=== PATIENT | male | born 1960 | race Caucasian/White ===

== ENCOUNTER 2018-03-05 21:35 | Inpatient (IN) | payer MEDICARE, MEDICAID ==
[2018-03-05 21:36] VITALS: BMI 25.0
[2018-03-05] MEDS ORDERED: Albuterol-Ipratrop 3 mg / 0.5 (3 ml) UD INH STA ×5 (21:51→22:58)
[2018-03-05] MEDS ORDERED: MethylPREDNISolone 40 mg Vial IVP STA (21:51)
--- NOTE | 2018-03-05 21:56 | C.PDOC ---
History Of Present Illness 57 year old male with PMHx of asthma, SOB, COPD presents to the ED c/o worsening SOB that woke him up from sleep tonight. Patient also reports having mild cough. Patient denies fever, chills, nausea, vomit, headache, CP. Time Seen by Provider: 03/05/18 21:38 Chief Complaint (Nursing): Shortness Of Breath History Per: Patient History/Exam Limitations: no limitations Onset/Duration Of Symptoms: Hrs Current Symptoms Are (Timing): Still Present Initiating Event: Upper Respiratory Illness Quality: Tightness Exacerbating Factor(s): Laying Flat Current Respiratory Medications: See Home Med List Associated Symptoms: denies: Fever, Chills Recent travel outside of the [place]: No Additional History Per: Patient Past Medical History Reviewed: Historical Data, Nursing Documentation, Vital Signs Vital Signs: Last Vital Signs Temp 98.6 F 03/06/18 08:48 Pulse 80 03/06/18 11:47 Resp 18 03/06/18 08:48 BP 135/84 03/06/18 08:48 Pulse Ox 97 03/06/18 08:48 - Medical History PMH: Asthma, HTN Denies: Chronic Kidney Disease Surgical History: No Surg Hx - [facility] Procedures INFLUENZA VACCINATION (09/13/14) VACCINATION NEC (09/13/14) Family History: States: Unknown Family Hx - Social History Hx Tobacco Use: Yes Hx Alcohol Use: Yes Hx Substance Use: No - Immunization History Hx Tetanus Toxoid Vaccination: No Hx Influenza Vaccination: No Hx Pneumococcal Vaccination: No Review Of Systems Except As Marked, All Systems Reviewed And Found Negative. Respiratory: Positive for: Cough, Shortness of Breath, Wheezing Physical Exam - Physical Exam Appears: Non-toxic, No Acute Distress Skin: Normal Color, Warm, Dry Head: Atraumatic, Normacephalic Eye(s): bilateral: Normal Inspection Oral Mucosa: Moist Neck: Normal ROM, Supple Chest: Symmetrical Cardiovascular: Rhythm Regular Respiratory: Decreased Breath Sounds (symmetrically), No Rales, No Rhonchi, Wheezing Gastrointestinal/Abdominal: Soft, No Tenderness, No Guarding, No Rebound Extremity: Normal ROM, No Tenderness, No Swelling Neurological/Psych: Oriented x3, Normal Speech Gait: Steady ED Course And Treatment - Laboratory Results Result Diagrams: 03/05/18 22:24 03/05/18 22:24 ECG: Interpreted By Me, Viewed By Me ECG Rhythm: Sinus Tachycardia Rate From EC (BPM) O2 Sat by Pulse Oximetry: 87 Medical Decision Making Medical Decision Making: Impression: SOB Plan: * VBG * EKG * Labs * CXR * Nebulizer treatment 3 ml INH X3 * CXR * solumedrol 125 mg IVP * Magnesium Sulfate wheezing improving but persisitnet. accpeted by dr acosta. o2 sat on nc 95%. stable for tele. Disposition - Disposition Disposition: HOSPITALIZED Disposition Time: 11:00 Condition: FAIR - Clinical Impression Clinical Impression: Asthma exacerbation - Scribe Statement The provider has reviewed the documentation as recorded by the Scribe Mac Parker All medical record entries made by the Scribe were at my direction and personally dictated by me. I have reviewed the chart and agree that the record accurately reflects my personal performance of the history, physical exam, medical decision making, and the department course for this patient. I have also personally directed, reviewed, and agree with the discharge instructions and disposition. Decision To Admit - Pt Status Changed To: Hospital Disposition Of: Inpatient - Admit Certification Admit to Inpatient:: After my assessment, the patient will require hospitalization for at least two midnights. This is because of the severity of symptoms shown, intensity of services needed, and/or the medical risk in this patient being treated as an outpatient. - InPatient: Physician Admission Certification: I certify that this patient requires 2 or more midnights of care for the following reason:: needs iv steriods and o2 - . Bed Request Type: Telemetry Admitting Physician: Siddhartha Acosta Patient Diagnosis: Asthma exacerbation
[2018-03-05] MEDS ORDERED: Magnesium Sulfate 1 gm in D5W 1 GM/100 ML BAG IVPB ONE ×2 (22:16→22:35)
[2018-03-05] MEDS: Magnesium Sulfate 1 gm in D5W 1 GM/100 ML BAG IVPB SCH ×2 (22:23→22:40)
[2018-03-05] MEDS ORDERED: Albuterol-Ipratrop 3 mg / 0.5 (3 ml) UD ONE ×3 (22:25→23:58)
[2018-03-05 22:26] LABS: BASO % 0.6 % (0.0-2.0); EOS # 0.1 K/uL (0.0-0.7); EOS % 1.8 % (0.0-4.0); HEMOGLOBIN 14.3 g/dL (12.0-18.0); LYMPH # 3.1 K/uL (1.0-4.3); LYMPH % 38.6 % (20.0-40.0); MEAN CELL VOLUME 99.9 fL (80.0-94.0); MEAN CORPUSCULAR HEMOGLOBIN 34.3 pg (27.0-31.0); MEAN CORPUSCULAR HGB CONC 34.3 g/dL (33.0-37.0); MEAN PLATELET VOLUME 7.6 fL (7.2-11.7); MONO # 0.7 K/uL (0.0-0.8); MONO % 8.5 % (0.0-10.0); NEUT % 50.5 % (50.0-75.0); NRBC % 0.1 % (0.0-2.0); RBC 4.17 Mil/uL (4.40-5.90); RED CELL DISTRIBUTION WIDTH 12.7 % (11.5-14.5)
[2018-03-05 22:31] LABS: VENOUS BLOOD GAS PCO2 29 mmHg (40-60); VENOUS BLOOD GAS PO2 51 mm/Hg (30-55); VENOUS BLOOD PH 7.41 (7.32-7.43)
[2018-03-05] MEDS ORDERED: Sodium Chloride 0.9% 1,000 ML IV ONE (22:32)
[2018-03-05 22:40] LABS: ALB/GLOB RATIO 1.4 (1.0-2.1); ALBUMIN 4.2 g/dL (3.5-5.0); ALT/SGPT 313 U/L (21-72); AST/SGOT 173 U/L (17-59); BLOOD UREA NITROGEN 13 mg/dL (9-20); CALCIUM 9.6 mg/dl (8.6-10.4); GFR AFRICAN-AMERICAN > 60; GFR NON-AFRICAN AMERICAN > 60
[2018-03-05 22:41] LABS: PROTHROMBIN TIME 11.3 SECONDS (9.7-12.2)
[2018-03-05] MEDS ORDERED: Sodium Chloride 0.9% 1,000 ML ONE (23:12)
[2018-03-06] MEDS: guaiFENesin 600 mg ER Tab PO SCH ×3 (00:08→18:13)
--- NOTE | 2018-03-06 08:33 | RAD ---
PROCEDURE: CHEST RADIOGRAPH, 1 VIEW HISTORY: chest pain COMPARISON: Chest dated 12/08/2017 FINDINGS: LUNGS: Minor bibasilar atelectasis. . There is elliptical shaped 7.7 x 6.1 mm nodular density right upper lobe which overlies the medial aspect of the clavicle and right posterior 5th rib that could represent confluence shadow artifact or possibly a bone island/ osteoma however parenchymal nodule must be excluded and therefore followup nonemergent CT scan of the chest is recommended to exclude possibility of neoplasm. PLEURA: No pneumothorax or pleural fluid seen. CARDIOVASCULAR: Normal. OSSEOUS STRUCTURES: No significant abnormalities. VISUALIZED UPPER ABDOMEN: Normal. OTHER FINDINGS: None. IMPRESSION: Minor bibasilar atelectasis. . There is elliptical shaped 7.7 x 6.1 mm nodular density right upper lobe which overlies the medial aspect of the clavicle and right posterior 5th rib that could represent confluence shadow artifact or possibly a bone island/ osteoma however parenchymal nodule must be excluded and therefore followup nonemergent CT scan of the chest is recommended to exclude possibility of neoplasm. This report was placed in PA review folder for followup
[2018-03-06] MEDS: Albuterol-Ipratrop 3 mg / 0.5 (3 ml) UD INH SCH ×3 (08:45→20:10)
[2018-03-06] MEDS ORDERED: Budesonide 0.5 mg/2 ml Inhal Susp UD INH SCH ×2 (09:45→20:00)
[2018-03-06] MEDS: Enoxaparin 40 mg Syringe SC SCH (10:19)
[2018-03-06] MEDS: Fluticasone-Salmeterol 250-50mcg Diskus INH SCH ×2 (11:43→20:10)
--- NOTE | 2018-03-06 12:40 | CP.PCM.CON ---
History of Present Illness - History of Present Illness History of Present Illness: reason for consultation: shortness of breath 57-year-old male with COPD presented to emergency room with worsening shortness of breath not responding to nebulizer treatment. Also complaining off dry cough but denies chest pain, fevers chills, nausea vomiting Review of Systems - Review of Systems All systems: reviewed and no additional remarkable complaints except (shortness of breath and cough) Past Patient History - Infectious Disease Hx of Infectious Diseases: None - Past Medical History & Family History Past Medical History?: Yes - Past Social History Smoking Status: Former Smoker - CARDIAC Hx Hypertension: Yes - PULMONARY Hx Asthma: Yes - NEUROLOGICAL Hx Neurological Disorder: No - HEENT Hx HEENT Problems: No - RENAL Hx Chronic Kidney Disease: No - ENDOCRINE/METABOLIC Hx Endocrine Disorders: No - HEMATOLOGICAL/ONCOLOGICAL Hx Blood Disorders: No - INTEGUMENTARY Hx Dermatological Problems: No - MUSCULOSKELETAL/RHEUMATOLOGICAL Hx Falls: No - GASTROINTESTINAL Hx Gastrointestinal Disorders: No - GENITOURINARY/GYNECOLOGICAL Hx Genitourinary Disorders: No - PSYCHIATRIC Hx Substance Use: No - SURGICAL HISTORY Hx Surgeries: No Other/Comment: no other information given by patient - ANESTHESIA Hx Anesthesia: No Hx Anesthesia Reactions: No Hx Malignant Hyperthermia: No Has any member of the family had a problem w/ anesthesia?: No Meds Allergies/Adverse Reactions: Allergies Allergy/AdvReac Type Severity Reaction Status Date / Time No Known Allergies Allergy Verified 03/05/18 21:48 - Medications Medications: Current Medications Albuterol/Ipratropium (Duoneb 3 Mg/0.5 Mg (3 Ml) Ud) 3 ml INH RQ6 [facility] Last Admin: 03/06/18 08:45 Dose: Not Given Budesonide (Pulmicort Respules) 0.5 mg INH RQ12 [facility] Enoxaparin Sodium (Lovenox) 40 mg SC DAILY [facility] Last Admin: 03/06/18 10:19 Dose: 40 mg Guaifenesin (Mucinex La) 600 mg PO BID [facility] Last Admin: 03/06/18 10:15 Dose: 600 mg Methylprednisolone (Solu-Medrol) 60 mg IV Q12 [facility] Last Admin: 03/06/18 10:15 Dose: 60 mg Fluticasone/Salmeterol (Advair Diskus 250/50) 1 puff INH RQ12 [facility] Last Admin: 07/08/18 11:43 Dose: 1 puff Physical Exam - Head Exam Head Exam: ATRAUMATIC, NORMOCEPHALIC - Eye Exam Eye Exam: Normal appearance - ENT Exam ENT Exam: Mucous Membranes Moist - Neck Exam Neck exam: Positive for: Normal Inspection - Respiratory Exam Respiratory Exam: Rhonchi, Wheezes - Cardiovascular Exam Cardiovascular Exam: REGULAR RHYTHM - GI/Abdominal Exam GI & Abdominal Exam: Normal Bowel Sounds, Soft Results - Vital Signs Recent Vital Signs: Last Vital Signs Temp 98.6 F 03/06/18 08:48 Pulse 80 03/06/18 11:47 Resp 18 03/06/18 08:48 BP 135/84 03/06/18 08:48 Pulse Ox 97 03/06/18 08:48 - Labs Result Diagrams: 03/05/18 22:24 03/05/18 22:24 Labs: Laboratory Results - last 24 hr 03/05/18 03/05/18 03/05/18 22:23 22:24 22:24 WBC 8.0 D RBC 4.17 L Hgb 14.3 Hct 41.7 MCV 99.9 H MCH 34.3 H MCHC 34.3 RDW 12.7 Plt Count 289 MPV 7.6 Neut % (Auto) 50.5 Lymph % (Auto) 38.6 Terry % (Auto) 8.5 Eos % (Auto) 1.8 Baso % (Auto) 0.6 Neut # (Auto) 4.0 Lymph # (Auto) 3.1 Terry # (Auto) 0.7 Eos # (Auto) 0.1 Baso # (Auto) 0.0 PT 11.3 INR 1.0 APTT 30 pO2 51 VBG pH 7.41 VBG pCO2 29 L VBG HCO3 20.7 VBG Total CO2 19.3 L VBG O2 Sat (Calc) 90.6 H VBG Base Excess -5.0 L VBG Potassium 2.4 L* Sodium 129.0 L Chloride 99.0 Glucose 479 H* Lactate 2.0 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 Crit Value Called By Tiki gil rt Crit Value Read Back Y Blood Gas Notified Time 8557 Potassium Carbon Dioxide Anion Gap BUN Creatinine Est GFR ( Amer) Est GFR (Non-Af Amer) Random Glucose Calcium Magnesium Total Bilirubin AST ALT Alkaline Phosphatase Troponin I Total Protein Albumin Globulin Albumin/Globulin Ratio Venous Blood Potassium 2.4 L* Hep Bs Antigen 03/05/18 03/06/18 22:24 00:21 WBC RBC Hgb Hct MCV MCH MCHC RDW Plt Count MPV Neut % (Auto) Lymph % (Auto) Terry % (Auto) Eos % (Auto) Baso % (Auto) Neut # (Auto) Lymph # (Auto) Terry # (Auto) Eos # (Auto) Baso # (Auto) PT INR APTT pO2 VBG pH VBG pCO2 VBG HCO3 VBG Total CO2 VBG O2 Sat (Calc) VBG Base Excess VBG Potassium Sodium 141 Chloride 102 Glucose Lactate Crit Value Called To Crit Value Called By Crit Value Read Back Blood Gas Notified Time Potassium 3.8 Carbon Dioxide 24 Anion Gap 19 BUN 13 Creatinine 0.8 Est GFR ( Amer) > 60 Est GFR (Non-Af Amer) > 60 Random Glucose 154 H Calcium 9.6 Magnesium 1.8 Total Bilirubin 0.7 AST 173 H ALT 313 H D Alkaline Phosphatase 87 Troponin I < 0.0120 Total Protein 7.3 Albumin 4.2 Globulin 3.1 Albumin/Globulin Ratio 1.4 Venous Blood Potassium Hep Bs Antigen Negative Assessment & Plan (1) COPD exacerbation Status: Acute Comment: continue nebulizer treatment. IV steroids. Start azithromycin. Continue present treatment. Pulmonary function test
[2018-03-06] MEDS: Azithromycin 500mg/250ML NS 500 MG/250 ML BAG IVPB SCH (14:51)
--- NOTE | 2018-03-06 23:40 | CP.PCM.HP ---
Past Patient History - Infectious Disease Hx of Infectious Diseases: None - Past Medical History & Family History Past Medical History?: Yes - Past Social History Smoking Status: Former Smoker - CARDIAC Hx Hypertension: Yes - PULMONARY Hx Asthma: Yes - NEUROLOGICAL Hx Neurological Disorder: No - HEENT Hx HEENT Problems: No - RENAL Hx Chronic Kidney Disease: No - ENDOCRINE/METABOLIC Hx Endocrine Disorders: No - HEMATOLOGICAL/ONCOLOGICAL Hx Blood Disorders: No - INTEGUMENTARY Hx Dermatological Problems: No - MUSCULOSKELETAL/RHEUMATOLOGICAL Hx Falls: No - GASTROINTESTINAL Hx Gastrointestinal Disorders: No - GENITOURINARY/GYNECOLOGICAL Hx Genitourinary Disorders: No - PSYCHIATRIC Hx Substance Use: No - SURGICAL HISTORY Hx Surgeries: No Other/Comment: no other information given by patient - ANESTHESIA Hx Anesthesia: No Hx Anesthesia Reactions: No Hx Malignant Hyperthermia: No Has any member of the family had a problem w/ anesthesia?: No Meds Allergies/Adverse Reactions: Allergies Allergy/AdvReac Type Severity Reaction Status Date / Time No Known Allergies Allergy Verified 03/05/18 21:48 Results - Vital Signs Recent Vital Signs: Last Vital Signs Temp 98.2 F 03/06/18 15:32 Pulse 107 H 03/06/18 16:00 Resp 20 03/06/18 15:32 BP 143/85 03/06/18 15:32 Pulse Ox 97 03/06/18 15:32 - Labs Result Diagrams: 03/05/18 22:24 03/05/18 22:24 Labs: Laboratory Results - last 24 hr 03/06/18 00:21 Hep Bs Antigen Negative
[2018-03-07] MEDS: Albuterol-Ipratrop 3 mg / 0.5 (3 ml) UD INH SCH ×5 (02:28→19:25)
[2018-03-07] MEDS: Fluticasone-Salmeterol 250-50mcg Diskus INH SCH ×2 (07:42→19:24)
--- NOTE | 2018-03-07 10:11 | HP ---
CHIEF COMPLAINT: Shortness of breath, cough. HISTORY OF PRESENT ILLNESS: This is a 57-year-old male with history of bronchial asthma. Otherwise, he is stable. He is healthy. He is compliant with his diet medications. He is not on any home oxygen. The last admission was three years ago and he came back because of cough, congestion, shortness of breath, which started acutely on the day of admission. Along with that, he was wheezing, he was dyspneic at rest. He has chest pain. He has chest pain on congestion. He felt congested on the chest. He felt nasal congestion. He denies any fever, chills, rigors. He does not have any sputum production. No fever, no chills, generalized weakness, tiredness. He denies any history of abdominal pain, nausea, vomiting, or diarrhea. He denies any history of polyuria, polydipsia, or polyphagia. Denies any history of hematuria or pyuria. There is no history of sneezing, itchy eyes, or itchy nose. ALLERGIES: NO KNOWN ALLERGIES. CURRENT MEDICATIONS: At home, the patient is on Proventil, DuoNeb, and Pulmicort Flexhaler SOCIAL HISTORY: Ex-smoker, non-EtOH user. PHYSICAL EXAMINATION: GENERAL: An elderly middle-aged male, right now he is in minimal respiratory distress. SKIN: Flush. No purpura, no petechiae. No bruises. HEENT: Atraumatic, normocephalic. Negative pallor. Negative jaundice. Extraocular movements are intact. NECK: Supple. He is not using accessory muscles. LUNGS: Bilaterally decreased air entry. Positive rhonchi. CVS: S1 and S2 regular. No heaves noted. ABDOMEN: Soft, nontender. Bowel sounds are positive. RECTAL: No masses, no bleeding. EXTREMITIES: No clubbing, cyanosis, or edema. WARP TENSION TESTER: Awake, alert, and oriented x3. Cranial nerves II through XII are normal. Power 5/5 x4. Plantars are downgoing. ASSESSMENT: Acute exacerbation of chronic obstructive pulmonary disease/asthma. PLAN: Admit. Detailed orders written. Seen and examined. Siddhartha Acosta MD
[2018-03-07] MEDS: guaiFENesin 600 mg ER Tab PO SCH ×2 (10:53→18:08)
[2018-03-07] MEDS: Enoxaparin 40 mg Syringe SC SCH (10:56)
[2018-03-07] MEDS: Azithromycin 500mg/250ML NS 500 MG/250 ML BAG IVPB SCH (11:59)
--- NOTE | 2018-03-07 17:46 | CP.PCM.PN ---
Subjective - Date & Time of Evaluation Date of Evaluation: 03/07/18 Time of Evaluation: 11:00 - Subjective Subjective: CC: COPD Exarcebation HPI: Patient examined this morning at the bedside. Patient is not in acute distress. Patient has improved breathing. Patient is afebrile. Patient can be discharged today. Patient to follow up in outpatient office. ROS: Constitutional: Patient denies fever and chills. Cardiovascular: Patient denies chest pain, palpitations. Respiratory: Patient denies shortness of breath or cough. Gastrointestinal: Patient denies nausea, vomiting, diarrhea. Physical Exam HEENT: Atraumatic, normocephalic, mucuous membranes moist Repiratory: Clear to auscultation bilaterally. No wheezing or rhonchi. No use of accessory muscles. Cardiovascular: +S1/ S2, regular rate and rhythm GI: Normal bowel sounds in all 4 quadrants, no tenderness, no distention Extremities: No LE edema Neurological: Alert, awake, oriented X3 Assessment: 57 year old male patient with history of bronchial asthma; patient's complaint consistent with COPD exacerbation. 1. COPD Exacerbation Status: Acute - Continue nebulizer treatment - Continue steroids - Follow- up outpatient visit in office Objective - Vital Signs/Intake and Output Vital Signs (last 24 hours): Temp Pulse Resp BP Pulse Ox 98.3 F 77 18 126/66 99 03/07/18 08:00 03/07/18 08:00 03/07/18 08:00 03/07/18 08:00 03/07/18 08:00 Intake and Output: 03/07/18 03/07/18 06:59 18:59 Intake Total 400 Balance 400 - Medications Medications: Current Medications Albuterol/Ipratropium (Duoneb 3 Mg/0.5 Mg (3 Ml) Ud) 3 ml INH RQ6 [facility] Last Admin: 03/07/18 07:42 Dose: 3 ml Budesonide (Pulmicort Respules) 0.5 mg INH RQ12 [facility] Enoxaparin Sodium (Lovenox) 40 mg SC DAILY [facility] Last Admin: 03/07/18 10:56 Dose: 40 mg Guaifenesin (Mucinex La) 600 mg PO BID [facility] Last Admin: 03/07/18 10:53 Dose: 600 mg Azithromycin (Zithromax 500mg In Ns Addvantage) 500 mg in 250 mls @ 167 mls/hr IVPB Q24H [facility] PRN Reason: Protocol Last Admin: 03/07/18 11:59 Dose: 167 mls/hr Methylprednisolone (Solu-Medrol) 60 mg IV Q12 [facility] Last Admin: 03/07/18 10:53 Dose: 60 mg Fluticasone/Salmeterol (Advair Diskus 250/50) 1 puff INH RQ12 [facility] Last Admin: 03/07/18 07:42 Dose: 1 puff - Labs Labs: 03/05/18 22:24 03/05/18 22:24 PT 11.3 SECONDS (9.7-12.2) 03/05/18 22:24 INR 1.0 03/05/18 22:24 APTT 30 SECONDS (21-34) 03/05/18 22:24 Assessment and Plan (1) COPD exacerbation Status: Acute
[2018-03-07 20:38] VITALS: RESP 20
--- NOTE | 2018-03-07 23:56 | CP.PCM.PN ---
Subjective - Date & Time of Evaluation Date of Evaluation: 03/07/18 Time of Evaluation: 21:00 - Subjective Subjective: Pt seen and examined at bedside, less short of breath, less cough, less wheezing Objective - Vital Signs/Intake and Output Vital Signs (last 24 hours): Temp Pulse Resp BP Pulse Ox 98.5 F 91 H 20 140/90 96 03/07/18 15:37 03/07/18 15:37 03/07/18 15:37 03/07/18 15:37 03/07/18 15:37 - Medications Medications: Current Medications Albuterol/Ipratropium (Duoneb 3 Mg/0.5 Mg (3 Ml) Ud) 3 ml INH RQ6 [facility] Last Admin: 03/07/18 19:25 Dose: 3 ml Budesonide (Pulmicort Respules) 0.5 mg INH RQ12 [facility] Enoxaparin Sodium (Lovenox) 40 mg SC DAILY [facility] Last Admin: 03/07/18 10:56 Dose: 40 mg Guaifenesin (Mucinex La) 600 mg PO BID [facility] Last Admin: 03/07/18 18:08 Dose: 600 mg Azithromycin (Zithromax 500mg In Ns Addvantage) 500 mg in 250 mls @ 167 mls/hr IVPB Q24H [facility] PRN Reason: Protocol Last Admin: 03/07/18 11:59 Dose: 167 mls/hr Methylprednisolone (Solu-Medrol) 60 mg IV Q12 [facility] Last Admin: 03/07/18 21:48 Dose: 60 mg Fluticasone/Salmeterol (Advair Diskus 250/50) 1 puff INH RQ12 [facility] Last Admin: 03/07/18 19:24 Dose: 1 puff - Labs Labs: 03/05/18 22:24 03/05/18 22:24 PT 11.3 SECONDS (9.7-12.2) 03/05/18 22:24 INR 1.0 03/05/18 22:24 APTT 30 SECONDS (21-34) 03/05/18 22:24 - Constitutional Appears: No Acute Distress - Head Exam Head Exam: ATRAUMATIC, NORMAL INSPECTION, NORMOCEPHALIC - Eye Exam Eye Exam: EOMI, Normal appearance, PERRL Pupil Exam: NORMAL ACCOMODATION, PERRL - Respiratory Exam Respiratory Exam: Decreased Breath Sounds, Rhonchi, Wheezes - Cardiovascular Exam Cardiovascular Exam: REGULAR RHYTHM, +S1, +S2. absent: Murmur - GI/Abdominal Exam GI & Abdominal Exam: Soft, Normal Bowel Sounds. absent: Tenderness - Rectal Exam Rectal Exam: Deferred Assessment and Plan (1) COPD exacerbation Assessment & Plan: continue current medications taper sterioid discharge pt in am Status: Acute (2) Dyspnea Status: Acute
[2018-03-08] MEDS: Albuterol-Ipratrop 3 mg / 0.5 (3 ml) UD INH SCH ×2 (01:06→07:19)
[2018-03-08 07:56] VITALS: TEMP 98.1; O2SAT 96
[2018-03-08] MEDS ORDERED: MethylPREDNISolone 40 mg Vial IV SCH (09:07)
[2018-03-08] MEDS: Fluticasone-Salmeterol 250-50mcg Diskus INH SCH (10:07)
[2018-03-08 10:43] VITALS: BP 156/93; PULSE 97
[2018-03-08] MEDS: guaiFENesin 600 mg ER Tab PO SCH (10:43)
[2018-03-08] MEDS: Enoxaparin 40 mg Syringe SC SCH (10:44)
[2018-03-08 12:31] LABS: HAV AB (IGM) Nonreactive (Nonreactive)
--- NOTE | 2018-03-08 16:43 | CP.PCM.PN ---
Subjective - Date & Time of Evaluation Date of Evaluation: 03/08/18 Time of Evaluation: 09:00 - Subjective Subjective: COPD Exarcebation HPI: Patient examined this morning at the bedside. Patient is not in acute distress. Patient has improved breathing. Patient is afebrile. Patient to be discharged today. ROS: Constitutional: Patient denies fever and chills. Cardiovascular: Patient denies chest pain, palpitations. Respiratory: Patient denies shortness of breath or cough. Gastrointestinal: Patient denies nausea, vomiting, diarrhea. Neurological: Alert, awake, oriented X3 Physical Exam HEENT: Atraumatic, normocephalic, mucuous membranes moist Repiratory: Clear to auscultation bilaterally. No wheezing or rhonchi. No use of accessory muscles. Cardiovascular: +S1/ S2, regular rate and rhythm GI: Normal bowel sounds in all 4 quadrants, no tenderness, no distention Extremities: No LE edema Neurological: Alert, awake, oriented X3 Assessment: 57 year old male patient with history of bronchial asthma; patient's complaint consistent with COPD exacerbation. 1. COPD Exacerbation Status: Acute - Continue nebulizer treatment - Continue steroids - Follow- up outpatient visit in office Objective - Vital Signs/Intake and Output Vital Signs (last 24 hours): Temp Pulse Resp BP Pulse Ox 98.1 F 97 H 20 156/93 H 96 03/08/18 07:00 03/08/18 10:43 03/08/18 07:00 03/08/18 10:43 03/08/18 07:00 - Labs Labs: 03/05/18 22:24 03/05/18 22:24 PT 11.3 SECONDS (9.7-12.2) 03/05/18 22:24 INR 1.0 03/05/18 22:24 APTT 30 SECONDS (21-34) 03/05/18 22:24 Assessment and Plan (1) COPD exacerbation Status: Acute
--- NOTE | 2018-03-08 17:34 | CP.PCM.PN ---
Objective - Vital Signs/Intake and Output Vital Signs (last 24 hours): Temp Pulse Resp BP Pulse Ox 98.1 F 97 H 20 156/93 H 96 03/08/18 07:00 03/08/18 10:43 03/08/18 07:00 03/08/18 10:43 03/08/18 07:00 - Labs Labs: 03/05/18 22:24 03/05/18 22:24 PT 11.3 SECONDS (9.7-12.2) 03/05/18 22:24 INR 1.0 03/05/18 22:24 APTT 30 SECONDS (21-34) 03/05/18 22:24 Assessment and Plan - Assessment and Plan (Free Text) Assessment: Patient admitted with COPD, asthma exacerbation, seen and examined. Alert and orientedx3, no wheezing or distress noted. Discussed with DR Acosta, plan to discharge home on medro; dose pack and mucinex. Advised to follow up in the office in 1 week.
--- NOTE | 2018-03-08 23:43 | CP.PCM.DIS ---
Provider - Provider Date of Admission: 03/05/18 22:58 Attending physician: Siddhartha Acosta MD Time Spent in preparation of Discharge (in minutes): 35 Diagnosis - Discharge Diagnosis (1) COPD exacerbation Status: Acute (2) Dyspnea Status: Acute Hospital Course - Lab Results Lab Results: Most Recent Lab Values WBC 8.0 K/uL (4.8-10.8) D 03/05/18 22:24 RBC 4.17 Mil/uL (4.40-5.90) L 03/05/18 22:24 Hgb 14.3 g/dL (12.0-18.0) 03/05/18 22:24 Hct 41.7 % (35.0-51.0) 03/05/18 22:24 MCV 99.9 fL (80.0-94.0) H 03/05/18 22:24 MCH 34.3 pg (27.0-31.0) H 03/05/18 22:24 MCHC 34.3 g/dL (33.0-37.0) 03/05/18 22:24 RDW 12.7 % (11.5-14.5) 03/05/18 22:24 Plt Count 289 K/uL (130-400) 03/05/18 22:24 MPV 7.6 fL (7.2-11.7) 03/05/18 22:24 Neut % (Auto) 50.5 % (50.0-75.0) 03/05/18 22:24 Lymph % (Auto) 38.6 % (20.0-40.0) 03/05/18 22:24 [place]ke % (Auto) 8.5 % (0.0-10.0) 03/05/18 22:24 Eos % (Auto) 1.8 % (0.0-4.0) 03/05/18 22:24 Baso % (Auto) 0.6 % (0.0-2.0) 03/05/18 22:24 Neut # (Auto) 4.0 K/uL (1.8-7.0) 03/05/18 22:24 Lymph # (Auto) 3.1 K/uL (1.0-4.3) 03/05/18 22:24 Parke # (Auto) 0.7 K/uL (0.0-0.8) 03/05/18 22:24 Eos # (Auto) 0.1 K/uL (0.0-0.7) 03/05/18 22:24 Baso # (Auto) 0.0 K/uL (0.0-0.2) 03/05/18 22:24 PT 11.3 SECONDS (9.7-12.2) 03/05/18 22:24 INR 1.0 03/05/18 22:24 APTT 30 SECONDS (21-34) 03/05/18 22:24 pO2 51 mm/Hg (30-55) 03/05/18 22:23 VBG pH 7.41 (7.32-7.43) 03/05/18 22:23 VBG pCO2 29 mmHg (40-60) L 03/05/18 22:23 VBG HCO3 20.7 mmol/L 03/05/18 22:23 VBG Total CO2 19.3 mmol/L (22-28) L 03/05/18 22:23 VBG O2 Sat (Calc) 90.6 % (40-65) H 03/05/18 22:23 VBG Base Excess -5.0 mmol/L (0.0-2.0) L 03/05/18 22:23 VBG Potassium 2.4 mmol/L (3.6-5.2) L* 03/05/18 22:23 Sodium 129.0 mmol/l (132-148) L 03/05/18 22:23 Chloride 99.0 mmol/L (98-107) 03/05/18 22:23 Glucose 479 mg/dl (75-110) H* 03/05/18 22:23 Lactate 2.0 mmol/L (0.7-2.1) 03/05/18 22:23 Crit Value Called To Kavya bermeo rn 03/05/18 22:23 Crit Value Called By Tiki gil rt 03/05/18 22:23 Crit Value Read Back Y 03/05/18 22:23 Blood Gas Notified Time 6583 03/05/18 22:23 Sodium 141 mmol/L (132-148) 03/05/18 22:24 Potassium 3.8 mmol/L (3.6-5.2) 03/05/18 22:24 Chloride 102 mmol/L (98-107) 03/05/18 22:24 Carbon Dioxide 24 mmol/L (22-30) 03/05/18 22:24 Anion Gap 19 (10-20) 03/05/18 22:24 BUN 13 mg/dL (9-20) 03/05/18 22:24 Creatinine 0.8 mg/dL (0.8-1.5) 03/05/18 22:24 Est GFR ( Amer) > 60 03/05/18 22:24 Est GFR (Non-Af Amer) > 60 03/05/18 22:24 Random Glucose 154 mg/dL (75-110) H 03/05/18 22:24 Calcium 9.6 mg/dl (8.6-10.4) 03/05/18 22:24 Magnesium 1.8 mg/dL (1.6-2.3) 03/05/18 22:24 Total Bilirubin 0.7 mg/dL (0.2-1.3) 03/05/18 22:24 AST 173 U/L (17-59) H 03/05/18 22:24 ALT 313 U/L (21-72) H D 03/05/18 22:24 Alkaline Phosphatase 87 U/L (38-126) 03/05/18 22:24 Troponin I < 0.0120 ng/mL (0.00-0.120) 03/05/18 22:24 Total Protein 7.3 g/dL (6.3-8.3) 03/05/18 22:24 Albumin 4.2 g/dL (3.5-5.0) 03/05/18 22:24 Globulin 3.1 gm/dL (2.2-3.9) 03/05/18 22:24 Albumin/Globulin Ratio 1.4 (1.0-2.1) 03/05/18 22:24 Venous Blood Potassium 2.4 mmol/L (3.6-5.2) L* 03/05/18 22:23 Hepatitis A IgM Ab Nonreactive (Nonreactive) 03/06/18 00:21 Hepatitis A Ab Total Reactive (Nonreactive) H 03/06/18 00:21 Hep Bs Antigen Negative (NEGATIVE) 03/06/18 00:21 Hepatitis C Antibody Reactive (Non Reactive) H 07/08/18 00:21 Hep C Ab Signal/Cutoff 19.7 Ratio (<1.0) H 03/06/ 00:21 - Hospital Course Hospital Course: Pt was doscharged today, less short of breath, less cough, less wheezing continue home nebulizer, inhaler Discharge Exam - Head Exam Head Exam: ATRAUMATIC, NORMAL INSPECTION, NORMOCEPHALIC - Eye Exam Eye Exam: EOMI, Normal appearance, PERRL Pupil Exam: NORMAL ACCOMODATION, PERRL - ENT Exam ENT Exam: Mucous Membranes Moist - Respiratory Exam Respiratory Exam: Decreased Breath Sounds, Rales, Rhonchi - Cardiovascular Exam Cardiovascular Exam: REGULAR RHYTHM, +S1, +S2 - GI/Abdominal Exam GI & Abdominal Exam: Normal Bowel Sounds - Rectal Exam Rectal Exam: Deferred Discharge Plan - Discharge Medications Prescriptions: Methylprednisolone [Medrol Dose Pack (21 tabs)] 4 mg PO DAILY #21 mg guaiFENesin [Mucinex LA] 600 mg PO BID #14 tab - Follow Up Plan Condition: FAIR Disposition: HOME/ ROUTINE Instructions: Asthma, Adult (DC), Exacerbation of COPD (DC), Guaifenesin, Methylprednisolone Additional Instructions: follow up with PMD in 1 week medrol dose pack as directed mucinex , duoneb to continue at home Referrals: Siddhartha Acosta MD [Staff Provider] -
== END 2018-03-08 11:44 | disposition home or self-care (01) | DRG 191 ==
LOC: C.ER 21:35 → C.9E 22:58 → C.6T 03-06 00:25
PROVIDERS: ADMIT Internal Medicine; ATTEND Internal Medicine
DX: J44.1 Chronic obstructive pulmonary disease with (acute) exacerbation (principal); J45.901 Unspecified asthma with (acute) exacerbation; R06.00 Dyspnea, unspecified; I10 Essential (primary) hypertension; Z87.891 Personal history of nicotine dependence

== ENCOUNTER 2018-04-11 23:02 | Inpatient (IN) | payer MEDICARE, MEDICAID ==
[2018-04-11 23:02] VITALS: BMI 25.0
[2018-04-11] MEDS ORDERED: Albuterol-Ipratrop 3 mg / 0.5 (3 ml) UD ONE ×2 (23:07→23:25)
[2018-04-11] MEDS ORDERED: Albuterol-Ipratrop 3 mg / 0.5 (3 ml) UD INH STA ×2 (23:27→23:28)
[2018-04-11] MEDS ORDERED: MethylPREDNISolone 40 mg Vial IVP STA (23:27)
[2018-04-11] MEDS ORDERED: Sodium Chloride 0.9% 1,000 ML IV ONE (23:50)
--- NOTE | 2018-04-11 23:50 | C.PDOC ---
History Of Present Illness Patient presents with worsening shortness of breath over the last few hours. Used inhaler at home, but still feels tight. Speaking in 2-3 word sentences. No f/c/n/d. Quit smoking 3 years ago Time Seen by Provider: 04/11/18 23:49 Chief Complaint (Nursing): Shortness Of Breath History Per: Patient History/Exam Limitations: no limitations Onset/Duration Of Symptoms: Hrs Current Symptoms Are (Timing): Still Present Initiating Event: Other Exacerbating Factor(s): Coughing Current Respiratory Medications: See Home Med List Severity: Severe Pain Scale Rating Of: 7 Associated Symptoms: denies: Fever, Chills, Sweating Reports Recently: Seen In ED, Treated By A Physician Recent travel outside of the [place]: No Additional History Per: Patient Past Medical History Reviewed: Historical Data, Nursing Documentation, Vital Signs Vital Signs: Last Vital Signs Temp 98.2 F 04/11/18 23:05 Pulse 110 H 04/12/18 00:41 Resp 14 04/12/18 00:41 BP 137/80 04/12/18 00:41 Pulse Ox 92 L 04/12/18 01:20 - Medical History PMH: Asthma, COPD, HTN Denies: Chronic Kidney Disease - [facility] Procedures INFLUENZA VACCINATION (09/13/14) VACCINATION NEC (09/13/14) Family History: States: No Known Family Hx - Social History Hx Tobacco Use: Yes Hx Alcohol Use: Yes Hx Substance Use: No - Immunization History Hx Tetanus Toxoid Vaccination: No Hx Influenza Vaccination: No Hx Pneumococcal Vaccination: No Review Of Systems Constitutional: Negative for: Fever, Chills Eyes: Negative for: Vision Change ENT: Negative for: Throat Pain Cardiovascular: Negative for: Chest Pain Respiratory: Positive for: Cough, Shortness of Breath, Wheezing Gastrointestinal: Negative for: Nausea, Vomiting, Abdominal Pain Genitourinary: Negative for: Dysuria Musculoskeletal: Negative for: Back Pain Skin: Negative for: Rash Neurological: Negative for: Weakness Psych: Negative for: Anxiety Physical Exam - Physical Exam Appears: In Acute Distress Skin: Warm, Dry Head: Normacephalic Eye(s): bilateral: Normal Inspection Oral Mucosa: Moist Throat: No Erythema Neck: Supple Chest: Symmetrical Cardiovascular: Rhythm Regular Respiratory: Decreased Breath Sounds, Accessory Muscle Use, No Rales, No Rhonchi , Wheezing Gastrointestinal/Abdominal: Soft, No Tenderness, No Distention Back: Normal Inspection Extremity: Normal ROM Extremity: Bilateral: Atraumatic Neurological/Psych: Oriented x3 Gait: Steady ED Course And Treatment O2 Sat by Pulse Oximetry: 92 Pulse Ox Interpretation: Abnormal - Radiology CXR: Interpreted by Me, Viewed By Me CXR Interpretation: No: Infiltrates, Fracture, Pnemothorax Critical Care Time - Critical Care Note Total Time (in mins): 30 Documented critical care: time excludes all time spent performing seperately billable procedures. Disposition Discussed With Dr.: Bandar Norman Comment: accepted the pt onhis service and took over the care at 1:19 AM Doctor Will See Patient In The: Hospital Counseled Patient/Family Regarding: Studies Performed, Diagnosis - Disposition Disposition: HOSPITALIZED Disposition Time: 23:50 Condition: GUARDED Forms: [facility] (Colombian) - POA Present On Arrival: None - Clinical Impression Clinical Impression: Acute asthma exacerbation Decision To Admit - Pt Status Changed To: Hospital Disposition Of: Inpatient - Admit Certification Admit to Inpatient:: After my assessment, the patient will require hospitalization for at least two midnights. This is because of the severity of symptoms shown, intensity of services needed, and/or the medical risk in this patient being treated as an outpatient. - InPatient: Physician Admission Certification: I certify that this patient requires 2 or more midnights of care for the following reason:: After my assessment, the patient will require hospitalization for at least two midnights. This is because of the severity of symptoms shown, intensity of services needed, and/or the medical risk in this patient being treated as an outpatient. - . Bed Request Type: Regular Admitting Physician: Bandar Norman Patient Diagnosis: Acute asthma exacerbation
[2018-04-11] MEDS ORDERED: Magnesium Sulfate 1 gm in D5W 1 GM/100 ML BAG IVPB ONE (23:55)
[2018-04-12] MEDS ORDERED: Albuterol-Ipratrop 3 mg / 0.5 (3 ml) UD ONE
[2018-04-12] MEDS ORDERED: Albuterol-Ipratrop 3 mg / 0.5 (3 ml) UD INH STA (00:10)
[2018-04-12] MEDS ORDERED: Magnesium Sulfate 1 gm in D5W 1 GM/100 ML BAG IVPB ONE (01:20)
[2018-04-12 01:25] LABS: BASO # 0.1 K/uL (0.0-0.2); BASO % 0.9 % (0.0-2.0); EOS # 0.1 K/uL (0.0-0.7); EOS % 0.8 % (0.0-4.0); HEMOGLOBIN 13.4 g/dL (12.0-18.0); LYMPH # 2.9 K/uL (1.0-4.3); MEAN CORPUSCULAR HEMOGLOBIN 35.4 pg (27.0-31.0); MEAN CORPUSCULAR HGB CONC 35.1 g/dL (33.0-37.0); MONO # 0.6 K/uL (0.0-0.8); MONO % 5.2 % (0.0-10.0); NEUT # 7.1 K/uL (1.8-7.0); NEUT % 66.1 % (50.0-75.0); RBC 3.78 Mil/uL (4.40-5.90); RED CELL DISTRIBUTION WIDTH 12.8 % (11.5-14.5); WHITE BLOOD COUNT 10.7 K/uL (4.8-10.8)
[2018-04-12 01:38] LABS: ALB/GLOB RATIO 1.2 (1.0-2.1); ALBUMIN 3.8 g/dL (3.5-5.0); ALT/SGPT 408 U/L (21-72); AST/SGOT 226 U/L (17-59); BLOOD UREA NITROGEN 11 mg/dL (9-20); CALCIUM 9.4 mg/dl (8.6-10.4); GFR AFRICAN-AMERICAN > 60; GFR NON-AFRICAN AMERICAN > 60
[2018-04-12] MEDS: MethylPREDNISolone 40 mg Vial IVP SCH ×3 (06:01→21:37)
[2018-04-12] MEDS: Azithromycin 500 MG in Sodium Chloride 0.9% 250 ML IVPB SCH (06:02)
[2018-04-12] MEDS: Albuterol-Ipratrop 3 mg / 0.5 (3 ml) UD INH SCH ×4 (08:25→20:04)
[2018-04-12] MEDS: Fluticasone-Salmeterol 250-50mcg Diskus INH SCH ×2 (08:25→20:03)
[2018-04-12] MEDS: Enoxaparin 40 mg Syringe SC SCH (09:12)
[2018-04-12] MEDS: Pantoprazole 40 mg EC Tab PO SCH (09:12)
--- NOTE | 2018-04-12 09:58 | CP.PCM.PN ---
Subjective - Date & Time of Evaluation Date of Evaluation: 04/12/18 Time of Evaluation: 07:52 - Subjective Subjective: PGY2 Medicine Note for Dr. Tami Norman Patient seen and examined this morning at bedside. Patient was admitted overnight for COPD exacerbation. Patient reports that he has been experiencing multiple episodes of SOB since he was discharged approximately a month ago for another COPD exacerbation. He was attempting to use his inhaler and nebulizer, which was helping, but did not help, which is why he decided to come back to hospital. He is feeling much better today and his breathing is greatly improved. He is till experiencing mild wheezing. Denies fevers, chills, nausea, vomiting, diarrhea, constipation, chest pain, abdominal pain, numbness or tingling. Objective - Vital Signs/Intake and Output Vital Signs (last 24 hours): Temp Pulse Resp BP Pulse Ox 97.5 F L 90 18 136/91 H 97 04/12/18 07:00 04/12/18 07:00 04/12/18 07:00 04/12/18 07:00 04/12/18 07:00 - Medications Medications: Current Medications Albuterol/Ipratropium (Duoneb 3 Mg/0.5 Mg (3 Ml) Ud) 3 ml INH RQ4 [facility] Stop: 04/12/18 16:01 Last Admin: 04/12/18 08:25 Dose: 3 ml Enoxaparin Sodium (Lovenox) 40 mg SC DAILY [facility] Last Admin: 04/12/18 09:12 Dose: 40 mg Ceftriaxone Sodium 1 gm/ (Sodium Chloride) 100 mls @ 100 mls/hr IVPB DAILY [facility] PRN Reason: Protocol Last Admin: 04/12/18 09:16 Dose: 100 mls/hr Azithromycin 500 mg/ Sodium (Chloride) 250 mls @ 167 mls/hr IVPB Q24H [facility] PRN Reason: Protocol Last Admin: 04/12/18 06:02 Dose: 167 mls/hr Methylprednisolone (Solu-Medrol) 40 mg IVP Q8 [facility] Last Admin: 04/12/18 06:01 Dose: 40 mg Montelukast Sodium (Singulair) 10 mg PO DAILY [facility] Last Admin: 04/12/18 09:12 Dose: 10 mg Pantoprazole Sodium (Protonix Ec Tab) 40 mg PO DAILY [facility] Last Admin: 08/14/18 09:12 Dose: 40 mg Fluticasone/Salmeterol (Advair Diskus 250/50) 1 puff INH RQ12 [facility] Last Admin: 04/12/18 08:25 Dose: Not Given - Labs Labs: 04/12/18 01:22 04/12/18 01:22 - Constitutional Appears: Non-toxic, No Acute Distress - Head Exam Head Exam: ATRAUMATIC, NORMOCEPHALIC - Eye Exam Eye Exam: EOMI, Normal appearance - ENT Exam ENT Exam: Mucous Membranes Moist - Neck Exam Neck Exam: absent: Lymphadenopathy - Respiratory Exam Respiratory Exam: Clear to Ausculation Bilateral, NORMAL BREATHING PATTERN. absent: Accessory Muscle Use, Rales, Rhonchi, Wheezes, Respiratory Distress - Cardiovascular Exam Cardiovascular Exam: REGULAR RHYTHM, +S1, +S2 - GI/Abdominal Exam GI & Abdominal Exam: Soft. absent: Distended, Firm, Guarding, Rigid, Tenderness - Extremities Exam Extremities Exam: absent: Calf Tenderness, Pedal Edema - Neurological Exam Neurological Exam: Alert, Awake, Oriented x3 - Psychiatric Exam Psychiatric exam: Normal Affect, Normal Mood - Skin Skin Exam: Dry, Warm Assessment and Plan - Assessment and Plan (Free Text) Plan: acute COPD exacerbation Pulmonary consult, Dr. Marshall - help appreciated CXR 04/12/18: no acute findings, unchanged from previous studies Medications: * Rocephin 1gm IVPB daily (started on 04/12) * Azithromycin 500mg IVPB daily (started on 04/12) * Montelukast 10mg PO daily * Solu-Medrol 40mg IVP q8h * Advair Diskus 250/50 1 puff INH q12h * Duoneb 3mL INH q6h har[facility] Transaminitis - history of Hep C Upon admission AST 226/ ALT 408 Hepatitis Panel (03/06/18) * Hep A IgM Ab - nonreactive * Hep A Ab total - reactive (high) * Hep Bs Ag - negative * Hep C Ab - reactive (high) * Hep C ab signal/cutoff 19.7 ratio (high) * Hep D antibody - negative Discussed with patient that he needs to follow up GI upon discharge. He states he understands. All medical management per Dr. Tami España Haseeb PGY2
[2018-04-12] MEDS ORDERED: Albuterol-Ipratrop 3 mg / 0.5 (3 ml) UD INH PRN (10:07)
--- NOTE | 2018-04-12 10:31 | RAD ---
Chest x-ray single frontal view History: Shortness of breath. Comparison: 12/09/2015 Findings: Biapical pleural thickening with upper lobe granulomatous changes. Diffuse increased interstitial lung markings. Patchy increased markings at the left lung base. Heart size within normal limits. Degenerative changes in the spine. Impression: Biapical pleural thickening with upper lobe granulomatous changes. Diffuse increased interstitial lung markings. Patchy increased markings at the left lung base. Heart size within normal limits.
[2018-04-12 16:19] VITALS: RESP 20
--- NOTE | 2018-04-12 18:27 | CP.PCM.CON ---
History of Present Illness - History of Present Illness History of Present Illness: reason for consultation:shortness of breath 57-year-old male with history of COPD presented to emergency room with worsening shortness of breath for the past 1 month. Also complaining of cough which is mostly dry. No fever chills are chest pain Past Patient History - Infectious Disease Hx of Infectious Diseases: None - Past Medical History & Family History Past Medical History?: Yes - Past Social History Smoking Status: Former Smoker - CARDIAC Hx Cardiac Disorders: Yes Hx Hypertension: Yes - PULMONARY Hx Respiratory Disorders: Yes Hx Asthma: Yes Hx Chronic Obstructive Pulmonary Disease (COPD): Yes - NEUROLOGICAL Hx Neurological Disorder: No - HEENT Hx HEENT Problems: No - RENAL Hx Chronic Kidney Disease: No - ENDOCRINE/METABOLIC Hx Endocrine Disorders: No - HEMATOLOGICAL/ONCOLOGICAL Hx Blood Disorders: No - INTEGUMENTARY Hx Dermatological Problems: No - MUSCULOSKELETAL/RHEUMATOLOGICAL Hx Musculoskeletal Disorders: No Hx Falls: No - GASTROINTESTINAL Hx Gastrointestinal Disorders: No - GENITOURINARY/GYNECOLOGICAL Hx Genitourinary Disorders: No - PSYCHIATRIC Hx Psychophysiologic Disorder: No Hx Substance Use: Yes (Last use-Cocaine 12 or 13 years ago) - SURGICAL HISTORY Hx Surgeries: No Other/Comment: no other information given by patient - ANESTHESIA Hx Anesthesia: No Hx Anesthesia Reactions: No Hx Malignant Hyperthermia: No Has any member of the family had a problem w/ anesthesia?: No Meds Allergies/Adverse Reactions: Allergies Allergy/AdvReac Type Severity Reaction Status Date / Time No Known Allergies Allergy Verified 03/05/18 21:48 - Medications Medications: Current Medications Albuterol/Ipratropium (Duoneb 3 Mg/0.5 Mg (3 Ml) Ud) 3 ml INH RQ6 [facility] Last Admin: 04/12/18 14:07 Dose: Not Given Enoxaparin Sodium (Lovenox) 40 mg SC DAILY [facility] Last Admin: 04/12/18 09:12 Dose: 40 mg Ceftriaxone Sodium 1 gm/ (Sodium Chloride) 100 mls @ 100 mls/hr IVPB DAILY [facility] PRN Reason: Protocol Last Admin: 04/12/18 09:16 Dose: 100 mls/hr Azithromycin 500 mg/ Sodium (Chloride) 250 mls @ 167 mls/hr IVPB Q24H [facility] PRN Reason: Protocol Last Admin: 04/12/18 06:02 Dose: 167 mls/hr Methylprednisolone (Solu-Medrol) 40 mg IVP Q8 [facility] Last Admin: 04/12/18 13:45 Dose: 40 mg Montelukast Sodium (Singulair) 10 mg PO DAILY [facility] Last Admin: 04/12/18 09:12 Dose: 10 mg Pantoprazole Sodium (Protonix Ec Tab) 40 mg PO DAILY [facility] Last Admin: 04/12/18 09:12 Dose: 40 mg Fluticasone/Salmeterol (Advair Diskus 250/50) 1 puff INH RQ12 [facility] Last Admin: 04/12/18 08:25 Dose: Not Given Physical Exam - Head Exam Head Exam: ATRAUMATIC, NORMOCEPHALIC - Eye Exam Eye Exam: Normal appearance - ENT Exam ENT Exam: Mucous Membranes Moist - Neck Exam Neck exam: Positive for: Normal Inspection - Respiratory Exam Respiratory Exam: Rhonchi, Wheezes - Cardiovascular Exam Cardiovascular Exam: REGULAR RHYTHM - GI/Abdominal Exam GI & Abdominal Exam: Normal Bowel Sounds, Soft - Extremities Exam Extremities exam: Positive for: normal inspection - Neurological Exam Neurological exam: Alert, Oriented x3 Results - Vital Signs Recent Vital Signs: Last Vital Signs Temp 98.3 F 04/12/18 15:18 Pulse 107 H 04/12/18 15:18 Resp 20 04/12/18 15:18 BP 127/72 04/12/18 15:18 Pulse Ox 100 04/12/18 15:18 - Labs Result Diagrams: 04/12/18 01:22 04/12/18 01:22 Labs: Laboratory Results - last 24 hr 04/12/18 04/12/18 01:22 01:22 WBC 10.7 RBC 3.78 L Hgb 13.4 Hct 38.2 MCV 101.0 H MCH 35.4 H MCHC 35.1 RDW 12.8 Plt Count 292 MPV 9.0 Neut % (Auto) 66.1 Lymph % (Auto) 27.0 [place] % (Auto) 5.2 Eos % (Auto) 0.8 Baso % (Auto) 0.9 Neut # (Auto) 7.1 H Lymph # (Auto) 2.9 [place] # (Auto) 0.6 Eos # (Auto) 0.1 Baso # (Auto) 0.1 Sodium 143 Potassium 3.7 Chloride 105 Carbon Dioxide 22 Anion Gap 20 BUN 11 Creatinine 0.9 Est GFR ( Amer) > 60 Est GFR (Non-Af Amer) > 60 Random Glucose 112 H Calcium 9.4 Total Bilirubin 0.8 AST 226 H D ALT 408 H D Alkaline Phosphatase 86 Total Protein 7.0 Albumin 3.8 Globulin 3.1 Albumin/Globulin Ratio 1.2 Assessment & Plan (1) COPD exacerbation Status: Acute
--- NOTE | 2018-04-12 19:55 | CP.PCM.HP ---
Past Patient History - Infectious Disease Hx of Infectious Diseases: None - Past Medical History & Family History Past Medical History?: Yes - Past Social History Smoking Status: Former Smoker - CARDIAC Hx Cardiac Disorders: Yes Hx Hypertension: Yes - PULMONARY Hx Respiratory Disorders: Yes Hx Asthma: Yes Hx Chronic Obstructive Pulmonary Disease (COPD): Yes - NEUROLOGICAL Hx Neurological Disorder: No - HEENT Hx HEENT Problems: No - RENAL Hx Chronic Kidney Disease: No - ENDOCRINE/METABOLIC Hx Endocrine Disorders: No - HEMATOLOGICAL/ONCOLOGICAL Hx Blood Disorders: No - INTEGUMENTARY Hx Dermatological Problems: No - MUSCULOSKELETAL/RHEUMATOLOGICAL Hx Musculoskeletal Disorders: No Hx Falls: No - GASTROINTESTINAL Hx Gastrointestinal Disorders: No - GENITOURINARY/GYNECOLOGICAL Hx Genitourinary Disorders: No - PSYCHIATRIC Hx Psychophysiologic Disorder: No Hx Substance Use: Yes (Last use-Cocaine 12 or 13 years ago) - SURGICAL HISTORY Hx Surgeries: No Other/Comment: no other information given by patient - ANESTHESIA Hx Anesthesia: No Hx Anesthesia Reactions: No Hx Malignant Hyperthermia: No Has any member of the family had a problem w/ anesthesia?: No Meds Allergies/Adverse Reactions: Allergies Allergy/AdvReac Type Severity Reaction Status Date / Time No Known Allergies Allergy Verified 03/05/18 21:48 Physical Exam - Constitutional Appears: Well - Head Exam Head Exam: ATRAUMATIC, NORMAL INSPECTION, NORMOCEPHALIC - Eye Exam Eye Exam: EOMI, Normal appearance, PERRL Pupil Exam: NORMAL ACCOMODATION, PERRL - ENT Exam ENT Exam: Mucous Membranes Moist, Normal Exam - Neck Exam Neck exam: Positive for: Normal Inspection - Respiratory Exam Respiratory Exam: Decreased Breath Sounds - Cardiovascular Exam Cardiovascular Exam: REGULAR RHYTHM, +S1, +S2 - GI/Abdominal Exam GI & Abdominal Exam: Diminished Bowel Sounds, Soft - Rectal Exam Rectal Exam: Deferred Results - Vital Signs Recent Vital Signs: Last Vital Signs Temp 98.3 F 04/12/18 15:18 Pulse 107 H 04/12/18 15:18 Resp 20 04/12/18 15:18 BP 127/72 04/12/18 15:18 Pulse Ox 100 04/12/18 15:18 - Labs Result Diagrams: 04/12/18 01:22 04/12/18 01:22 Labs: Laboratory Results - last 24 hr 04/12/18 04/12/18 01:22 01:22 WBC 10.7 RBC 3.78 L Hgb 13.4 Hct 38.2 MCV 101.0 H MCH 35.4 H MCHC 35.1 RDW 12.8 Plt Count 292 MPV 9.0 Neut % (Auto) 66.1 Lymph % (Auto) 27.0 [place] % (Auto) 5.2 Eos % (Auto) 0.8 Baso % (Auto) 0.9 Neut # (Auto) 7.1 H Lymph # (Auto) 2.9 [place] # (Auto) 0.6 Eos # (Auto) 0.1 Baso # (Auto) 0.1 Sodium 143 Potassium 3.7 Chloride 105 Carbon Dioxide 22 Anion Gap 20 BUN 11 Creatinine 0.9 Est GFR ( Amer) > 60 Est GFR (Non-Af Amer) > 60 Random Glucose 112 H Calcium 9.4 Total Bilirubin 0.8 AST 226 H D ALT 408 H D Alkaline Phosphatase 86 Total Protein 7.0 Albumin 3.8 Globulin 3.1 Albumin/Globulin Ratio 1.2
[2018-04-13] MEDS: Albuterol-Ipratrop 3 mg / 0.5 (3 ml) UD INH SCH ×4 (01:00→20:04)
[2018-04-13] MEDS: MethylPREDNISolone 40 mg Vial IVP SCH ×2 (05:05→13:44)
[2018-04-13] MEDS: Azithromycin 500 MG in Sodium Chloride 0.9% 250 ML IVPB SCH (05:06)
[2018-04-13] MEDS: Fluticasone-Salmeterol 250-50mcg Diskus INH SCH ×2 (07:30→20:03)
[2018-04-13 08:44] LABS: BASO # 0.1 K/uL (0.0-0.2); BASO % 0.2 % (0.0-2.0); HEMOGLOBIN 13.3 g/dL (12.0-18.0); LYMPH # 1.2 K/uL (1.0-4.3); LYMPH % 4.8 % (20.0-40.0); MEAN CELL VOLUME 102.3 fL (80.0-94.0); MEAN CORPUSCULAR HEMOGLOBIN 34.7 pg (27.0-31.0); MEAN CORPUSCULAR HGB CONC 33.9 g/dL (33.0-37.0); MEAN PLATELET VOLUME 8.5 fL (7.2-11.7); MONO # 0.5 K/uL (0.0-0.8); MONO % 2.1 % (0.0-10.0); NEUT # 22.4 K/uL (1.8-7.0); NEUT % 92.9 % (50.0-75.0); PLATELET COUNT 317 K/uL (130-400); RBC 3.84 Mil/uL (4.40-5.90); RED CELL DISTRIBUTION WIDTH 12.8 % (11.5-14.5)
[2018-04-13 08:47] LABS: WHITE BLOOD COUNT 24.1 K/uL (4.8-10.8)
[2018-04-13 08:55] LABS: ALB/GLOB RATIO 1.2 (1.0-2.1); ALBUMIN 3.8 g/dL (3.5-5.0); ALT/SGPT 291 U/L (21-72); AST/SGOT 84 U/L (17-59); BLOOD UREA NITROGEN 17 mg/dL (9-20); CALCIUM 9.3 mg/dl (8.6-10.4); GFR AFRICAN-AMERICAN > 60; GFR NON-AFRICAN AMERICAN > 60
[2018-04-13] MEDS: Enoxaparin 40 mg Syringe SC SCH (09:12)
[2018-04-13] MEDS: Pantoprazole 40 mg EC Tab PO SCH (09:12)
[2018-04-13 09:14] LABS: LYMPHOCYTE 7 % (20-40); MONOCYTE 2 % (0-10); NEUTROPHIL 91 % (50-75); PLATELET ESTIMATE NORMAL (NORMAL); TOTAL CELLS COUNTED 100
--- NOTE | 2018-04-13 12:35 | CARD ---
APPROVED REPORT Date of service: 04/12/2018 EKG Measurement Heart [id number] <Conclusion> Sinus tachycardia Otherwise normal ECG
--- NOTE | 2018-04-13 15:34 | CP.PCM.PN ---
Subjective - Date & Time of Evaluation Date of Evaluation: 04/13/18 Time of Evaluation: 12:45 - Subjective Subjective: patient seen and examined Cough and shortness of breath much improved Afebrile No chest pain Objective - Vital Signs/Intake and Output Vital Signs (last 24 hours): Temp Pulse Resp BP Pulse Ox 97.9 F 106 H 20 138/82 97 04/13/18 07:20 04/13/18 07:20 04/13/18 07:20 04/13/18 07:20 04/13/18 07:20 - Medications Medications: Current Medications Acetaminophen (Tylenol 325mg Tab) 650 mg PO Q6 PRN PRN Reason: Headache Last Admin: 04/12/18 22:34 Dose: 650 mg Albuterol/Ipratropium (Duoneb 3 Mg/0.5 Mg (3 Ml) Ud) 3 ml INH RQ6 [facility] Last Admin: 04/13/18 13:21 Dose: 3 ml Enoxaparin Sodium (Lovenox) 40 mg SC DAILY [facility] Last Admin: 04/13/18 09:12 Dose: 40 mg Ceftriaxone Sodium 1 gm/ (Sodium Chloride) 100 mls @ 100 mls/hr IVPB DAILY [facility] PRN Reason: Protocol Last Admin: 04/13/18 09:23 Dose: 100 mls/hr Azithromycin 500 mg/ Sodium (Chloride) 250 mls @ 167 mls/hr IVPB Q24H [facility] PRN Reason: Protocol Last Admin: 04/13/18 05:06 Dose: 167 mls/hr Methylprednisolone (Solu-Medrol) 40 mg IVP Q8 [facility] Last Admin: 04/13/18 13:44 Dose: 40 mg Montelukast Sodium (Singulair) 10 mg PO DAILY [facility] Last Admin: 04/13/18 12:34 Dose: 10 mg Pantoprazole Sodium (Protonix Ec Tab) 40 mg PO DAILY [facility] Last Admin: 04/13/18 09:12 Dose: 40 mg Fluticasone/Salmeterol (Advair Diskus 250/50) 1 puff INH RQ12 [facility] Last Admin: 04/13/18 07:30 Dose: Not Given - Labs Labs: 04/13/18 08:20 04/13/18 08:20 - Head Exam Head Exam: ATRAUMATIC - Eye Exam Eye Exam: EOMI - ENT Exam ENT Exam: Mucous Membranes Moist - Neck Exam Neck Exam: Normal Inspection - Respiratory Exam Respiratory Exam: Clear to Ausculation Bilateral - Cardiovascular Exam Cardiovascular Exam: REGULAR RHYTHM - GI/Abdominal Exam GI & Abdominal Exam: Soft, Normal Bowel Sounds Assessment and Plan (1) COPD exacerbation Assessment & Plan: switch to po Prednisone Continue nebulizer treatment stable from pulmonary standpoint Elevated white count secondary to steroid Status: Acute
--- NOTE | 2018-04-13 16:19 | CP.PCM.PN ---
Subjective - Date & Time of Evaluation Date of Evaluation: 04/13/18 Time of Evaluation: 10:11 - Subjective Subjective: PGY2 Medicine Note for Dr. Tami Norman Patient seen and examined this morning at bedside. No acute events overnight. Patient's breathing is greatly improved and is no longer experiencing any wheezing or shortness of breath. He has no complaints today and is hopeful to go home soon. He is till experiencing mild wheezing. Denies fevers, chills, nausea, vomiting, diarrhea, constipation, chest pain, abdominal pain, numbness or tingling. Objective - Vital Signs/Intake and Output Vital Signs (last 24 hours): Temp Pulse Resp BP Pulse Ox 97.9 F 106 H 20 138/82 97 04/13/18 07:20 04/13/18 07:20 04/13/18 07:20 04/13/18 07:20 04/13/18 07:20 - Medications Medications: Current Medications Acetaminophen (Tylenol 325mg Tab) 650 mg PO Q6 PRN PRN Reason: Headache Last Admin: 04/12/18 22:34 Dose: 650 mg Albuterol/Ipratropium (Duoneb 3 Mg/0.5 Mg (3 Ml) Ud) 3 ml INH RQ6 [facility] Last Admin: 04/13/18 13:21 Dose: 3 ml Enoxaparin Sodium (Lovenox) 40 mg SC DAILY [facility] Last Admin: 04/13/18 09:12 Dose: 40 mg Ceftriaxone Sodium 1 gm/ (Sodium Chloride) 100 mls @ 100 mls/hr IVPB DAILY [facility] PRN Reason: Protocol Last Admin: 04/13/18 09:23 Dose: 100 mls/hr Azithromycin 500 mg/ Sodium (Chloride) 250 mls @ 167 mls/hr IVPB Q24H [facility] PRN Reason: Protocol Last Admin: 04/13/18 05:06 Dose: 167 mls/hr Montelukast Sodium (Singulair) 10 mg PO DAILY [facility] Last Admin: 04/13/18 12:34 Dose: 10 mg Pantoprazole Sodium (Protonix Ec Tab) 40 mg PO DAILY [facility] Last Admin: 04/13/18 09:12 Dose: 40 mg Prednisone (Prednisone Tab) 20 mg PO DAILY [facility] Last Admin: 04/13/18 16:11 Dose: 20 mg Fluticasone/Salmeterol (Advair Diskus 250/50) 1 puff INH RQ12 [facility] Last Admin: 04/13/18 07:30 Dose: Not Given - Labs Labs: 04/13/18 08:20 04/13/18 08:20 - Constitutional Appears: Non-toxic, No Acute Distress - Head Exam Head Exam: ATRAUMATIC, NORMOCEPHALIC - Eye Exam Eye Exam: Normal appearance - ENT Exam ENT Exam: Mucous Membranes Moist - Neck Exam Neck Exam: absent: Lymphadenopathy - Respiratory Exam Respiratory Exam: Wheezes (mild), NORMAL BREATHING PATTERN. absent: Accessory Muscle Use, Rales, Rhonchi, Respiratory Distress - Cardiovascular Exam Cardiovascular Exam: REGULAR RHYTHM, +S1, +S2 - GI/Abdominal Exam GI & Abdominal Exam: Soft. absent: Distended, Firm, Guarding, Rigid, Tenderness - Extremities Exam Extremities Exam: absent: Calf Tenderness, Pedal Edema - Neurological Exam Neurological Exam: Alert, Awake, Oriented x3 - Psychiatric Exam Psychiatric exam: Normal Affect, Normal Mood - Skin Skin Exam: Dry, Warm Assessment and Plan - Assessment and Plan (Free Text) Plan: acute COPD exacerbation (improving) Pulmonary consult, Dr. Marshall - help appreciated CXR 04/12/18: no acute findings, unchanged from previous studies Medications: * Rocephin 1gm IVPB daily (started on 04/12) * Azithromycin 500mg IVPB daily (started on 04/12) * Montelukast 10mg PO daily * Solu-Medrol 40mg IVP q8h --> switched to Prednisone 20mg PO daily * Advair Diskus 250/50 1 puff INH q12h * Duoneb 3mL INH q6h [facility] Transaminitis - history of Hep C Upon admission AST 226/ ALT 408 --> AST 84/ALT 291 Hepatitis Panel (03/06/18) * Hep A IgM Ab - nonreactive * Hep A Ab total - reactive (high) * Hep Bs Ag - negative * Hep C Ab - reactive (high) * Hep C ab signal/cutoff 19.7 ratio (high) * Hep D antibody - negative Discussed with patient that he needs to follow up GI upon discharge. He states he understands. DISPO: Patient's breathing is improving but is still mildly wheezing today. Will discharge home tomorrow. All medical management per Dr. Tami España Haseeb PGY2
--- NOTE | 2018-04-13 17:35 | CT ---
Date of service: 04/13/2018 PROCEDURE: CT Chest without contrast HISTORY: R/O ILD COMPARISON: Plain radiographs from 04/12/2018. TECHNIQUE: Contiguous axial images were obtained through the chest without intravenous contrast enhancement. Sagittal and coronal reconstructions were performed. Radiation dose (DLP): 295.65 mGy-cm. This CT exam was performed using one or more of the following dose reduction techniques: Automated exposure control, adjustment of the mA and/or kV according to patient size, and/or use of iterative reconstruction technique. FINDINGS: LUNGS: The lungs are well inflated and clear. There is a 4 mm subpleural calcified nodule along the major fissure in the right upper lobe. There is no evidence of interlobular septal thickening, ground-glass opacities, architectural distortion or honeycombing. There is no peribronchial thickening. There are no endobronchial lesions. There is minimal biapical pleural parenchymal scarring. There is subsegmental atelectasis in the lung bases. MEDIASTINUM: The aorta is not dilated. The heart is normal in size. No pericardial effusion. Subcentimeter mediastinal lymph nodes are likely reactive in etiology. PLEURA: No pleural fluid. No pneumothorax. BONES: No fracture. No destructive lesion. UPPER ABDOMEN: Grossly unremarkable. OTHER FINDINGS: None. IMPRESSION: No acute findings. Specifically, no CT evidence for interstitial lung disease.
--- NOTE | 2018-04-13 18:02 | CP.PCM.PN ---
Subjective - Date & Time of Evaluation Date of Evaluation: 04/13/18 Time of Evaluation: 10:45 - Subjective Subjective: clinically same Objective - Vital Signs/Intake and Output Vital Signs (last 24 hours): Temp Pulse Resp BP Pulse Ox 98.5 F 99 H 20 142/96 H 96 04/13/18 15:00 04/13/18 15:00 04/13/18 15:00 04/13/18 15:00 04/13/18 15:00 - Medications Medications: Current Medications Acetaminophen (Tylenol 325mg Tab) 650 mg PO Q6 PRN PRN Reason: Headache Last Admin: 04/12/18 22:34 Dose: 650 mg Albuterol/Ipratropium (Duoneb 3 Mg/0.5 Mg (3 Ml) Ud) 3 ml INH RQ6 [facility] Last Admin: 04/13/18 13:21 Dose: 3 ml Enoxaparin Sodium (Lovenox) 40 mg SC DAILY [facility] Last Admin: 04/13/18 09:12 Dose: 40 mg Ceftriaxone Sodium 1 gm/ (Sodium Chloride) 100 mls @ 100 mls/hr IVPB DAILY [facility] PRN Reason: Protocol Last Admin: 04/13/18 09:23 Dose: 100 mls/hr Azithromycin 500 mg/ Sodium (Chloride) 250 mls @ 167 mls/hr IVPB Q24H [facility] PRN Reason: Protocol Last Admin: 04/13/18 05:06 Dose: 167 mls/hr Montelukast Sodium (Singulair) 10 mg PO DAILY [facility] Last Admin: 04/13/18 12:34 Dose: 10 mg Pantoprazole Sodium (Protonix Ec Tab) 40 mg PO DAILY [facility] Last Admin: 04/13/18 09:12 Dose: 40 mg Prednisone (Prednisone Tab) 20 mg PO DAILY [facility] Last Admin: 04/13/18 16:11 Dose: 20 mg Fluticasone/Salmeterol (Advair Diskus 250/50) 1 puff INH RQ12 [facility] Last Admin: 04/13/18 07:30 Dose: Not Given - Labs Labs: 04/13/18 08:20 04/13/18 08:20 - Constitutional Appears: Well - Head Exam Head Exam: ATRAUMATIC, NORMAL INSPECTION, NORMOCEPHALIC - Eye Exam Eye Exam: EOMI, Normal appearance, PERRL Pupil Exam: NORMAL ACCOMODATION, PERRL - ENT Exam ENT Exam: Mucous Membranes Moist, Normal Exam - Neck Exam Neck Exam: Full ROM, Normal Inspection. absent: Lymphadenopathy - Respiratory Exam Respiratory Exam: Decreased Breath Sounds - Cardiovascular Exam Cardiovascular Exam: REGULAR RHYTHM, +S1, +S2 - GI/Abdominal Exam GI & Abdominal Exam: Soft, Diminished Bowel Sounds - Rectal Exam Rectal Exam: Deferred
[2018-04-14] MEDS: Albuterol-Ipratrop 3 mg / 0.5 (3 ml) UD INH SCH ×3 (01:23→12:37)
[2018-04-14 01:38] VITALS: TEMP 97.9
[2018-04-14] MEDS: Azithromycin 500 MG in Sodium Chloride 0.9% 250 ML IVPB SCH (06:02)
[2018-04-14] MEDS: Fluticasone-Salmeterol 250-50mcg Diskus INH SCH (06:55)
[2018-04-14 07:52] VITALS: BP 160/97; PULSE 86; O2SAT 98
[2018-04-14] MEDS: Enoxaparin 40 mg Syringe SC SCH (09:23)
[2018-04-14] MEDS: Pantoprazole 40 mg EC Tab PO SCH (09:23)
--- NOTE | 2018-04-14 10:07 | CP.PCM.PN ---
Subjective - Date & Time of Evaluation Date of Evaluation: 04/14/18 Time of Evaluation: 10:04 - Subjective Subjective: PGY2 Medicine Note for Dr. Tami Norman Patient seen and examined this morning at bedside. No acute events overnight. Patient states that he is feeling much better. He is had mild wheezing this morning but denies any shortness of breath. He has no medical complaints at this time and is hopeful to be discharged today. Denies fevers, chills, nausea, vomiting, diarrhea, constipation, chest pain, abdominal pain, numbness or tingling. Objective - Vital Signs/Intake and Output Vital Signs (last 24 hours): Temp Pulse Resp BP Pulse Ox 97.9 F 86 20 160/97 H 98 04/14/18 07:00 04/14/18 07:00 04/14/18 07:00 04/14/18 07:00 04/14/18 07:00 - Medications Medications: Current Medications Acetaminophen (Tylenol 325mg Tab) 650 mg PO Q6 PRN PRN Reason: Headache Last Admin: 04/12/18 22:34 Dose: 650 mg Albuterol/Ipratropium (Duoneb 3 Mg/0.5 Mg (3 Ml) Ud) 3 ml INH RQ6 [facility] Last Admin: 04/14/18 06:55 Dose: 3 ml Enoxaparin Sodium (Lovenox) 40 mg SC DAILY [facility] Last Admin: 04/14/18 09:23 Dose: 40 mg Ceftriaxone Sodium 1 gm/ (Sodium Chloride) 100 mls @ 100 mls/hr IVPB DAILY [facility] PRN Reason: Protocol Last Admin: 04/14/18 09:27 Dose: 100 mls/hr Azithromycin 500 mg/ Sodium (Chloride) 250 mls @ 167 mls/hr IVPB Q24H [facility] PRN Reason: Protocol Last Admin: 04/14/18 06:02 Dose: 167 mls/hr Montelukast Sodium (Singulair) 10 mg PO DAILY [facility] Last Admin: 04/14/18 09:23 Dose: 10 mg Pantoprazole Sodium (Protonix Ec Tab) 40 mg PO DAILY [facility] Last Admin: 04/14/18 09:23 Dose: 40 mg Prednisone (Prednisone Tab) 20 mg PO DAILY [facility] Last Admin: 04/14/18 09:23 Dose: 20 mg Fluticasone/Salmeterol (Advair Diskus 250/50) 1 puff INH RQ12 [facility] Last Admin: 04/14/18 06:55 Dose: Not Given - Labs Labs: 04/13/18 08:20 04/13/18 08:20 - Constitutional Appears: Non-toxic, No Acute Distress - Head Exam Head Exam: ATRAUMATIC, NORMOCEPHALIC - Eye Exam Eye Exam: Normal appearance - ENT Exam ENT Exam: Mucous Membranes Moist - Neck Exam Neck Exam: absent: Lymphadenopathy - Respiratory Exam Respiratory Exam: Clear to Ausculation Bilateral, NORMAL BREATHING PATTERN. absent: Accessory Muscle Use, Rales, Rhonchi, Wheezes (RT recently gave breathing tx. Stated mild wheezing prior to treatment.), Respiratory Distress - Cardiovascular Exam Cardiovascular Exam: REGULAR RHYTHM, +S1, +S2 - GI/Abdominal Exam GI & Abdominal Exam: Soft, Normal Bowel Sounds. absent: Distended, Firm, Guarding, Rigid, Tenderness - Extremities Exam Extremities Exam: absent: Calf Tenderness, Pedal Edema - Neurological Exam Neurological Exam: Alert, Awake, Oriented x3 - Psychiatric Exam Psychiatric exam: Normal Affect, Normal Mood - Skin Skin Exam: Dry, Warm Assessment and Plan - Assessment and Plan (Free Text) Plan: Acute COPD exacerbation (improving) Pulmonary consult, Dr. Marshall - help appreciated CXR 04/12/18: no acute findings, unchanged from previous studies Chest CT w/o 04/13/18: * No acute findings. * Specifically, no CT evidence for interstitial lung disease. * LUNGS: The lungs are well inflated and clear. There is a 4 mm subpleural calcified nodule along the major fissure in the right upper lobe. There is no evidence of interlobular septal thickening, ground-glass opacities, architectural distortion or honeycombing. There is no peribronchial thickening. There are no endobronchial lesions. There is minimal biapical pleural parenchymal scarring. There is subsegmental atelectasis in the lung bases. Medications: * Rocephin 1gm IVPB daily (started on 04/12) * Azithromycin 500mg IVPB daily (started on 04/12) * Montelukast 10mg PO daily * Prednisone 20mg PO daily * Advair Diskus 250/50 1 puff INH q12h * Duoneb 3mL INH q6h [facility] Transaminitis - history of Hep C Upon admission AST 226/ ALT 408 --> AST 84/ALT 291 (on 04/13) Hepatitis Panel (03/06/18) * Hep A IgM Ab - nonreactive * Hep A Ab total - reactive (high) * Hep Bs Ag - negative * Hep C Ab - reactive (high) * Hep C ab signal/cutoff 19.7 ratio (high) * Hep D antibody - negative Re-discussed with patient that he needs to follow up GI upon discharge. He states he understands. DISPO: Patient to be discharged home with the following instructions. Patient is to be discharged homed per Dr. Tami Norman Patient is to follow up with Dr. Tami Norman in his office within one week. Please call and schedule an appointment. * Patient is to request referral to GI at follow up appointment. Patient is to follow up with Dr. Marshall (Veterinary Receptionist) in his office within one to two weeks. Please call and schedule an appointment. Patient is to take medications as directed. * Started on Advair Diskus 250/50 1 puff INH every 12 hours * Started on Montelukast 10mg PO daily * Started on Medrol Dose Pack - see TAPER for dosing instructions. If patient begins to experience any new or worsening symptoms, please go directly to the nearest emergency department. All medical management per Dr. Tami Felixn PGY2
--- NOTE | 2018-04-14 13:59 | CP.PCM.PN ---
Subjective - Date & Time of Evaluation Date of Evaluation: 04/14/18 Time of Evaluation: 09:20 - Subjective Subjective: patient seen and examined Breathing much improved CAT scan of the chest noted Slight cough No chest pain Objective - Vital Signs/Intake and Output Vital Signs (last 24 hours): Temp Pulse Resp BP Pulse Ox 97.9 F 86 20 160/97 H 98 04/14/18 07:00 04/14/18 07:00 04/14/18 07:00 04/14/18 07:00 04/14/18 07:00 Intake and Output: 04/14/18 04/14/18 06:59 18:59 Intake Total 480 Balance 480 - Labs Labs: 04/13/18 08:20 04/13/18 08:20 - Head Exam Head Exam: ATRAUMATIC, NORMOCEPHALIC - ENT Exam ENT Exam: Mucous Membranes Moist - Neck Exam Neck Exam: Normal Inspection - Respiratory Exam Respiratory Exam: Clear to Ausculation Bilateral - Cardiovascular Exam Cardiovascular Exam: REGULAR RHYTHM - GI/Abdominal Exam GI & Abdominal Exam: Soft, Normal Bowel Sounds Assessment and Plan (1) COPD exacerbation Assessment & Plan: discharge patient home on tapering steroids Advair Rescue inhaler Follow up in the office Status: Acute
== END 2018-04-14 13:40 | disposition home or self-care (01) | DRG 191 ==
LOC: C.ER 23:02 → C.9E 04-12 01:17 → C.6T 04-12 02:31
PROVIDERS: ADMIT Internal Medicine Nephrology; ATTEND Internal Medicine Nephrology
DX: J44.1 Chronic obstructive pulmonary disease with (acute) exacerbation (principal); J45.901 Unspecified asthma with (acute) exacerbation; I10 Essential (primary) hypertension; Z87.891 Personal history of nicotine dependence

== ENCOUNTER 2018-06-11 01:11 | Inpatient (IN) | payer MEDICARE, MEDICAID ==
[2018-06-11 01:12] VITALS: BMI 25.0
[2018-06-11] MEDS ORDERED: Albuterol-Ipratrop 3 mg / 0.5 (3 ml) UD ONE ×2 (01:18→01:30)
--- NOTE | 2018-06-11 01:19 | C.PDOC ---
History Of Present Illness Patient presents to the ED with SOB that became worse since yesterday. He states he used to smoke but stopped approximately 3 years ago. Patient used an inhaler at home but did not feel any relief. He is currently speaking in 2-3 word sentences but otherwise denies any chest pain, nausea, vomiting and palpitations. Time Seen by Provider: 06/11/18 01:18 Chief Complaint (Nursing): Shortness Of Breath History Per: Patient History/Exam Limitations: no limitations Onset/Duration Of Symptoms: Days Current Symptoms Are (Timing): Still Present Initiating Event: Other Exacerbating Factor(s): Coughing Current Respiratory Medications: See Home Med List Severity: Moderate Pain Scale Rating Of: 5 Associated Symptoms: denies: Fever, Chills, Chest Pain, Productive Cough, Heart Racing Reports Recently: Seen In ED, Treated By A Physician, Hospitalized Recent travel outside of the [place]: No Additional History Per: Patient Past Medical History Reviewed: Historical Data, Nursing Documentation, Vital Signs - Medical History PMH: Asthma, COPD, HTN Denies: Chronic Kidney Disease - [facility] Procedures INFLUENZA VACCINATION (09/13/14) VACCINATION NEC (09/13/14) Family History: States: No Known Family Hx - Social History Hx Tobacco Use: Yes Hx Alcohol Use: Yes (Social Drink) Hx Substance Use: Yes (Last use-Cocaine 12 or 13 years ago) - Immunization History Hx Tetanus Toxoid Vaccination: No Hx Influenza Vaccination: No Hx Pneumococcal Vaccination: No Review Of Systems Constitutional: Negative for: Fever, Chills Eyes: Negative for: Vision Change Cardiovascular: Negative for: Chest Pain, Palpitations Respiratory: Positive for: Shortness of Breath. Negative for: Cough Gastrointestinal: Negative for: Nausea, Vomiting Genitourinary: Negative for: Dysuria Musculoskeletal: Negative for: Back Pain Skin: Negative for: Rash Neurological: Negative for: Weakness, Numbness Psych: Negative for: Anxiety Physical Exam - Physical Exam Appears: Non-toxic, In Acute Distress Skin: Warm, Dry Head: Normacephalic Eye(s): bilateral: Normal Inspection Oral Mucosa: Moist Neck: Trachea Midline, Supple Chest: Symmetrical, No Tenderness Cardiovascular: Rhythm Regular Respiratory: Decreased Breath Sounds, No Rales, No Rhonchi, Wheezing (diffuse) Gastrointestinal/Abdominal: Soft, No Tenderness Back: Normal Inspection Extremity: Normal ROM Extremity: Bilateral: Atraumatic, Normal Color And Temperature Pulses: Left Dorsalis Pedis: Normal, Right Dorsalis Pedis: Normal Neurological/Psych: Oriented x3 Gait: Steady ED Course And Treatment - Laboratory Results Result Diagrams: 06/11/18 01:40 06/11/18 01:40 ECG: Interpreted By Me, Viewed By Me ECG Rhythm: Sinus Tachycardia (121), Nonspecific Changes O2 Sat by Pulse Oximetry: 85 (RA) Pulse Ox Interpretation: Abnormal - Radiology CXR: Interpreted by Me, Viewed By Me CXR Interpretation: Yes: Other (unchanged from 04/12/18). No: Infiltrates, Fracture, Pnemothorax Progress Note: Ordered EKG, blood work, CXR, and Influenza AB. Administered duoneb nebulizer, Methylprednisolone and IV fluids. Critical Care Time - Critical Care Note Total Time (in mins): 30 Documented critical care: time excludes all time spent performing seperately billable procedures. Disposition Discussed With : Bandar Norman Comment: acceptd the pt on his service and tookover the care at 4:12 AM Doctor Will See Patient In The: Hospital Counseled Patient/Family Regarding: Studies Performed, Diagnosis - Disposition Disposition: HOSPITALIZED Disposition Time: 01:19 Condition: GUARDED Forms: [facility] (Sinhala) - POA Present On Arrival: Poor Glycemic Control - Clinical Impression Clinical Impression: Respiratory distress, COPD exacerbation - Scribe Statement The provider has reviewed the documentation as recorded by the Scribe (Anastasia Tristan) All medical record entries made by the Scribe were at my direction and personally dictated by me. I have reviewed the chart and agree that the record accurately reflects my personal performance of the history, physical exam, medical decision making, and the department course for this patient. I have also personally directed, reviewed, and agree with the discharge instructions and disposition. Decision To Admit - Pt Status Changed To: Hospital Disposition Of: Inpatient - Admit Certification Admit to Inpatient:: After my assessment, the patient will require hospitalization for at least two midnights. This is because of the severity of symptoms shown, intensity of services needed, and/or the medical risk in this patient being treated as an outpatient. - InPatient: Physician Admission Certification: I certify that this patient requires 2 or more midnights of care for the following reason:: After my assessment, the patient will require hospitalization for at least two midnights. This is b nidia of the severity of symptoms shown, intensity of services needed, and/or the medical risk in this patient being treated as an outpatient. - . Bed Request Type: Telemetry Admitting Physician: Bandar Norman Patient Diagnosis: Respiratory distress, COPD exacerbation
[2018-06-11] MEDS ORDERED: Sodium Chloride 0.9% 1,000 ML IV ONE (01:21)
[2018-06-11] MEDS ORDERED: Sodium Chloride 0.9% 1,000 ML ONE (01:31)
[2018-06-11 01:43] LABS: BASO # 0.1 K/uL (0.0-0.2); BASO % 1.3 % (0.0-2.0); EOS # 0.1 K/uL (0.0-0.7); EOS % 1.2 % (0.0-4.0); HEMOGLOBIN 14.1 g/dL (12.0-18.0); LYMPH # 2.6 K/uL (1.0-4.3); LYMPH % 31.2 % (20.0-40.0); MEAN CORPUSCULAR HEMOGLOBIN 35.2 pg (27.0-31.0); MEAN CORPUSCULAR HGB CONC 34.9 g/dL (33.0-37.0); MEAN PLATELET VOLUME 7.8 fL (7.2-11.7); MONO # 0.4 K/uL (0.0-0.8); NEUT # 5.1 K/uL (1.8-7.0); NEUT % 61.3 % (50.0-75.0); NRBC % 0.1 % (0.0-2.0); RBC 4.01 Mil/uL (4.40-5.90); RED CELL DISTRIBUTION WIDTH 12.5 % (11.5-14.5); WHITE BLOOD COUNT 8.4 K/uL (4.8-10.8)
[2018-06-11 01:57] LABS: ALB/GLOB RATIO 1.3 (1.0-2.1); ALBUMIN 4.1 g/dL (3.5-5.0); ALT/SGPT 264 U/L (21-72); AST/SGOT 193 U/L (17-59); BLOOD UREA NITROGEN 16 mg/dL (9-20); CALCIUM 9.5 mg/dl (8.6-10.4); GFR NON-AFRICAN AMERICAN > 60
[2018-06-11 02:19] LABS: ABG ALLEN TEST POS; ARTERIAL BLOOD GAS HCO3 24.6 mmol/L (21-28); ARTERIAL BLOOD GAS O2 SAT 93.2 % (95-98); ARTERIAL BLOOD GAS PCO2 41 mm/Hg (35-45); ARTERIAL BLOOD GAS PH 7.39 (7.35-7.45); ARTERIAL BLOOD GAS PO2 64 mm/Hg (80-100); ARTERIAL BLOOD GAS TCO2 26.1 mmol/L (22-28)
[2018-06-11] MEDS: Albuterol-Ipratrop 3 mg / 0.5 (3 ml) UD IH SCH (02:21)
[2018-06-11] MEDS ORDERED: Aluminum Hydroxide/Magnesium Hydroxide Susp (30 mL) PO STA (03:03)
[2018-06-11] MEDS ORDERED: Aluminum Hydroxide/Magnesium Hydroxide Susp (30 mL) ONE (03:03)
[2018-06-11] MEDS: Albuterol-Ipratrop 3 mg / 0.5 (3 ml) UD INH SCH ×4 (06:44→19:03)
--- NOTE | 2018-06-11 08:47 | RAD ---
HISTORY: SOB COMPARISON: Chest x-ray performed 04/12/18 TECHNIQUE: Chest, one view. FINDINGS: LUNGS: Mild biapical pleural thickening. Patchy increased interstitial markings as on prior study, particularly the left lung base. No focal consolidation. Please note that chest x-ray has limited sensitivity for the detection of pulmonary masses. PLEURA: No significant pleural effusion identified. No definite pneumothorax . CARDIOVASCULAR: The cardiomediastinal silhouette appears within normal limits of size. OSSEOUS STRUCTURES: No acute osseous abnormality identified. VISUALIZED UPPER ABDOMEN: Unremarkable. OTHER FINDINGS: None. IMPRESSION: Mild biapical pleural thickening. Patchy increased interstitial markings as on prior study, particularly the left lung base.
[2018-06-11] MEDS: Fluticasone-Vilanterol 100/25mcg Diskus INH SCH (09:30)
[2018-06-11] MEDS: MethylPREDNISolone 40 mg Vial IVP SCH ×2 (11:03→18:05)
[2018-06-11] MEDS: Enoxaparin 40 mg Syringe SC SCH (11:03)
[2018-06-11] MEDS: Azithromycin 500 MG in Sodium Chloride 0.9% 250 ML IVPB SCH (12:19)
--- NOTE | 2018-06-11 12:47 | CP.PCM.HP ---
Past Patient History - Infectious Disease Hx of Infectious Diseases: None - Past Medical History & Family History Past Medical History?: Yes - Past Social History Smoking Status: Former Smoker - CARDIAC Hx Hypertension: Yes - PULMONARY Hx Asthma: Yes Hx Chronic Obstructive Pulmonary Disease (COPD): Yes - NEUROLOGICAL Hx Neurological Disorder: No - HEENT Hx HEENT Problems: No - RENAL Hx Chronic Kidney Disease: No - ENDOCRINE/METABOLIC Hx Endocrine Disorders: No - HEMATOLOGICAL/ONCOLOGICAL Hx Blood Disorders: No - INTEGUMENTARY Hx Dermatological Problems: No - MUSCULOSKELETAL/RHEUMATOLOGICAL Hx Falls: No - GASTROINTESTINAL Hx Gastrointestinal Disorders: No - GENITOURINARY/GYNECOLOGICAL Hx Genitourinary Disorders: No - PSYCHIATRIC Hx Substance Use: No - SURGICAL HISTORY Hx Surgeries: No Other/Comment: no other information given by patient - ANESTHESIA Hx Anesthesia: No Hx Anesthesia Reactions: No Hx Malignant Hyperthermia: No Meds Allergies/Adverse Reactions: Allergies Allergy/AdvReac Type Severity Reaction Status Date / Time No Known Allergies Allergy Verified 06/11/18 01:20 Physical Exam - Constitutional Appears: Well - Head Exam Head Exam: ATRAUMATIC, NORMAL INSPECTION, NORMOCEPHALIC - Eye Exam Eye Exam: EOMI, Normal appearance, PERRL Pupil Exam: NORMAL ACCOMODATION, PERRL - ENT Exam ENT Exam: Mucous Membranes Moist, Normal Exam - Neck Exam Neck exam: Positive for: Normal Inspection - Respiratory Exam Respiratory Exam: Decreased Breath Sounds - Cardiovascular Exam Cardiovascular Exam: REGULAR RHYTHM, +S1, +S2 - GI/Abdominal Exam GI & Abdominal Exam: Diminished Bowel Sounds, Soft - Rectal Exam Rectal Exam: Deferred Results - Vital Signs Recent Vital Signs: Last Vital Signs Temp 99.7 F H 06/11/18 07:15 Pulse 25 L 06/11/18 07:15 Resp 20 06/11/18 07:15 BP 129/79 06/11/18 07:15 Pulse Ox 97 06/11/18 07:15 - Labs Result Diagrams: 06/11/18 01:40 06/11/18 01:40 Labs: Laboratory Results - last 24 hr 06/11/18 06/11/18 06/11/18 01:40 01:40 01:40 WBC 8.4 D RBC 4.01 L Hgb 14.1 Hct 40.5 MCV 101.0 H MCH 35.2 H MCHC 34.9 RDW 12.5 Plt Count 328 MPV 7.8 Neut % (Auto) 61.3 Lymph % (Auto) 31.2 [place] % (Auto) 5.0 Eos % (Auto) 1.2 Baso % (Auto) 1.3 Neut # (Auto) 5.1 Lymph # (Auto) 2.6 [place] # (Auto) 0.4 Eos # (Auto) 0.1 Baso # (Auto) 0.1 Puncture Site pCO2 pO2 HCO3 ABG pH ABG Total CO2 ABG O2 Saturation ABG Base Excess Vlad Test ABG Potassium Glucose Lactate Liter Flow Sodium 140 Potassium 3.9 Chloride 100 Carbon Dioxide 23 Anion Gap 21 H BUN 16 Creatinine 0.7 L Est GFR ( Amer) > 60 Est GFR (Non-Af Amer) > 60 Random Glucose 150 H Calcium 9.5 Magnesium 1.9 Total Bilirubin 0.8 AST 193 H D ALT 264 H Alkaline Phosphatase 89 Total Protein 7.3 Albumin 4.1 Globulin 3.2 Albumin/Globulin Ratio 1.3 Arterial Blood Potassium Influenza Typ A,B (EIA) Negative for flu a/b 06/11/18 02:15 WBC RBC Hgb Hct MCV MCH MCHC RDW Plt Count MPV Neut % (Auto) Lymph % (Auto) [place] % (Auto) Eos % (Auto) Baso % (Auto) Neut # (Auto) Lymph # (Auto) [place] # (Auto) Eos # (Auto) Baso # (Auto) Puncture Site Right radial pCO2 41 pO2 64 L HCO3 24.6 ABG pH 7.39 ABG Total CO2 26.1 ABG O2 Saturation 93.2 L ABG Base Excess -0.2 Vlad Test Pos ABG Potassium 3.1 L Glucose 166 H Lactate 2.7 H Liter Flow 3.0 Sodium 137.0 Potassium Chloride 102.0 Carbon Dioxide Anion Gap BUN Creatinine Est GFR ( Amer) Est GFR (Non-Af Amer) Random Glucose Calcium Magnesium Total Bilirubin AST ALT Alkaline Phosphatase Total Protein Albumin Globulin Albumin/Globulin Ratio Arterial Blood Potassium 3.1 L Influenza Typ A,B (EIA)
--- NOTE | 2018-06-11 14:26 | CP.PCM.CON ---
History of Present Illness - History of Present Illness History of Present Illness: reason for consultation: shortness of breath 57-year-old male with history of COPD presented to emergency room with worsening shortness of breath Started 2 days ago. Also complaining of cough which is mostly dry. No fever chills are chest pain Review of Systems - Review of Systems All systems: reviewed and no additional remarkable complaints except (shortness of breath and cough) Past Patient History - Infectious Disease Hx of Infectious Diseases: None - Past Medical History & Family History Past Medical History?: Yes - Past Social History Smoking Status: Former Smoker - CARDIAC Hx Hypertension: Yes - PULMONARY Hx Asthma: Yes Hx Chronic Obstructive Pulmonary Disease (COPD): Yes - NEUROLOGICAL Hx Neurological Disorder: No - HEENT Hx HEENT Problems: No - RENAL Hx Chronic Kidney Disease: No - ENDOCRINE/METABOLIC Hx Endocrine Disorders: No - HEMATOLOGICAL/ONCOLOGICAL Hx Blood Disorders: No - INTEGUMENTARY Hx Dermatological Problems: No - MUSCULOSKELETAL/RHEUMATOLOGICAL Hx Falls: No - GASTROINTESTINAL Hx Gastrointestinal Disorders: No - GENITOURINARY/GYNECOLOGICAL Hx Genitourinary Disorders: No - PSYCHIATRIC Hx Substance Use: No - SURGICAL HISTORY Hx Surgeries: No Other/Comment: no other information given by patient - ANESTHESIA Hx Anesthesia: No Hx Anesthesia Reactions: No Hx Malignant Hyperthermia: No Meds Allergies/Adverse Reactions: Allergies Allergy/AdvReac Type Severity Reaction Status Date / Time No Known Allergies Allergy Verified 06/11/18 01:20 - Medications Medications: Current Medications Albuterol/Ipratropium (Duoneb 3 Mg/0.5 Mg (3 Ml) Ud) 3 ml INH RQ3 [facility] Stop: 06/11/18 18:01 Last Admin: 06/11/18 12:30 Dose: 3 ml Enoxaparin Sodium (Lovenox) 40 mg SC DAILY [facility] Last Admin: 06/11/18 11:03 Dose: 40 mg Fluticasone/Vilanterol (Breo Ellipta 100-25 Mcg Inh) 1 puff INH RQ24 [facility] Last Admin: 06/11/18 09:30 Dose: 1 puff Ceftriaxone Sodium 1 gm/ (Sodium Chloride) 100 mls @ 100 mls/hr IVPB DAILY [facility]; Protocol Last Admin: 06/11/18 11:08 Dose: 100 mls/hr Azithromycin 500 mg/ Sodium (Chloride) 250 mls @ 167 mls/hr IVPB Q24H [facility]; Protocol Last Admin: 06/11/18 12:19 Dose: 167 mls/hr Influenza Virus Vaccine (Fluzone Quad [id number]) 60 mcg IM .ONCE ONE Stop: 06/13/18 10:01 Methylprednisolone (Solu-Medrol) 60 mg IVP Q8H [facility] Last Admin: 06/11/18 11:03 Dose: 60 mg Montelukast Sodium (Singulair) 10 mg PO [facility] Physical Exam - Head Exam Head Exam: ATRAUMATIC, NORMOCEPHALIC - ENT Exam ENT Exam: Mucous Membranes Moist - Neck Exam Neck exam: Positive for: Normal Inspection - Respiratory Exam Respiratory Exam: Rhonchi, Wheezes - Cardiovascular Exam Cardiovascular Exam: REGULAR RHYTHM Results - Vital Signs Recent Vital Signs: Last Vital Signs Temp 99.7 F H 06/11/18 07:15 Pulse 25 L 06/11/18 07:15 Resp 20 06/11/18 07:15 BP 129/79 06/11/18 07:15 Pulse Ox 97 06/11/18 07:15 - Labs Result Diagrams: 06/11/18 01:40 06/11/18 01:40 Labs: Laboratory Results - last 24 hr 06/11/18 06/11/18 06/11/18 01:40 01:40 01:40 WBC 8.4 D RBC 4.01 L Hgb 14.1 Hct 40.5 MCV 101.0 H MCH 35.2 H MCHC 34.9 RDW 12.5 Plt Count 328 MPV 7.8 Neut % (Auto) 61.3 Lymph % (Auto) 31.2 [place] % (Auto) 5.0 Eos % (Auto) 1.2 Baso % (Auto) 1.3 Neut # (Auto) 5.1 Lymph # (Auto) 2.6 [place] # (Auto) 0.4 Eos # (Auto) 0.1 Baso # (Auto) 0.1 Puncture Site pCO2 pO2 HCO3 ABG pH ABG Total CO2 ABG O2 Saturation ABG Base Excess Vlad Test ABG Potassium Glucose Lactate Liter Flow Sodium 140 Potassium 3.9 Chloride 100 Carbon Dioxide 23 Anion Gap 21 H BUN 16 Creatinine 0.7 L Est GFR ( Amer) > 60 Est GFR (Non-Af Amer) > 60 Random Glucose 150 H Calcium 9.5 Magnesium 1.9 Total Bilirubin 0.8 AST 193 H D ALT 264 H Alkaline Phosphatase 89 Total Protein 7.3 Albumin 4.1 Globulin 3.2 Albumin/Globulin Ratio 1.3 Arterial Blood Potassium Influenza Typ A,B (EIA) Negative for flu a/b 06/11/18 02:15 WBC RBC Hgb Hct MCV MCH MCHC RDW Plt Count MPV Neut % (Auto) Lymph % (Auto) [place] % (Auto) Eos % (Auto) Baso % (Auto) Neut # (Auto) Lymph # (Auto) [place] # (Auto) Eos # (Auto) Baso # (Auto) Puncture Site Right radial pCO2 41 pO2 64 L HCO3 24.6 ABG pH 7.39 ABG Total CO2 26.1 ABG O2 Saturation 93.2 L ABG Base Excess -0.2 Vlad Test Pos ABG Potassium 3.1 L Glucose 166 H Lactate 2.7 H Liter Flow 3.0 Sodium 137.0 Potassium Chloride 102.0 Carbon Dioxide Anion Gap BUN Creatinine Est GFR ( Amer) Est GFR (Non-Af Amer) Random Glucose Calcium Magnesium Total Bilirubin AST ALT Alkaline Phosphatase Total Protein Albumin Globulin Albumin/Globulin Ratio Arterial Blood Potassium 3.1 L Influenza Typ A,B (EIA) Assessment & Plan (1) COPD exacerbation Status: Acute Comment: patient with history of smoking quit 3 years ago. Nebulizer treatment, IV steroids and antibiotics
[2018-06-12] MEDS: MethylPREDNISolone 40 mg Vial IVP SCH ×3 (01:54→18:05)
[2018-06-12] MEDS: Fluticasone-Vilanterol 100/25mcg Diskus INH SCH (09:00)
[2018-06-12] MEDS: Enoxaparin 40 mg Syringe SC SCH (09:48)
[2018-06-12] MEDS: Azithromycin 500 MG in Sodium Chloride 0.9% 250 ML IVPB SCH (10:53)
[2018-06-12 15:46] VITALS: RESP 20
--- NOTE | 2018-06-12 16:20 | CP.PCM.PN ---
Subjective - Date & Time of Evaluation Date of Evaluation: 06/12/18 Time of Evaluation: 11:15 - Subjective Subjective: clinically same Objective - Vital Signs/Intake and Output Vital Signs (last 24 hours): Temp Pulse Resp BP Pulse Ox 98.2 F 97 H 20 129/77 96 06/12/18 15:00 06/12/18 15:00 06/12/18 15:00 06/12/18 15:00 06/12/18 15:00 Intake and Output: 06/12/18 06/12/18 06:59 18:59 Intake Total 780 Balance 780 - Medications Medications: Current Medications Enoxaparin Sodium (Lovenox) 40 mg SC DAILY [facility] Last Admin: 06/12/18 09:48 Dose: 40 mg Fluticasone/Vilanterol (Breo Ellipta 100-25 Mcg Inh) 1 puff INH RQ24 [facility] Last Admin: 06/12/18 09:00 Dose: 1 puff Ceftriaxone Sodium 1 gm/ (Sodium Chloride) 100 mls @ 100 mls/hr IVPB DAILY [facility]; Protocol Last Admin: 06/12/18 09:49 Dose: 100 mls/hr Azithromycin 500 mg/ Sodium (Chloride) 250 mls @ 167 mls/hr IVPB Q24H [facility]; Pro tocol Last Admin: 06/12/18 10:53 Dose: 167 mls/hr Influenza Virus Vaccine (Fluzone Quad [id number]) 60 mcg IM .ONCE ONE Stop: 06/13/18 10:01 Methylprednisolone (Solu-Medrol) 60 mg IVP Q8H [facility] Last Admin: 06/12/18 09:48 Dose: 60 mg Montelukast Sodium (Singulair) 10 mg PO HS [facility] Last Admin: 06/11/18 22:10 Dose: 10 mg - Labs Labs: 06/11/18 01:40 06/11/18 01:40
[2018-06-13] MEDS: MethylPREDNISolone 40 mg Vial IVP SCH ×3 (02:23→19:03)
[2018-06-13 06:57] LABS: MEAN CELL VOLUME 101.6 fL (80.0-94.0); MEAN CORPUSCULAR HEMOGLOBIN 34.2 pg (27.0-31.0); MEAN CORPUSCULAR HGB CONC 33.6 g/dL (33.0-37.0); MEAN PLATELET VOLUME 8.1 fL (7.2-11.7); RBC 4.11 Mil/uL (4.40-5.90); RED CELL DISTRIBUTION WIDTH 12.5 % (11.5-14.5)
[2018-06-13 07:07] LABS: BLOOD UREA NITROGEN 23 mg/dL (9-20); CALCIUM 9.7 mg/dl (8.6-10.4); GFR NON-AFRICAN AMERICAN > 60
[2018-06-13] MEDS: Fluticasone-Vilanterol 100/25mcg Diskus INH SCH (07:33)
[2018-06-13] MEDS ORDERED: Influenza Vaccine 60 MCG/0.5 ML SYR (3 yr & up) IM ONE (10:00)
[2018-06-13] MEDS: Enoxaparin 40 mg Syringe SC SCH (10:20)
[2018-06-13] MEDS: Azithromycin 500 MG in Sodium Chloride 0.9% 250 ML IVPB SCH (10:27)
--- NOTE | 2018-06-13 14:55 | CP.PCM.PN ---
Subjective - Date & Time of Evaluation Date of Evaluation: 06/13/18 Time of Evaluation: 10:15 - Subjective Subjective: Patient was seen and examined at bedside, resting comfortably in bed. Afebrile and in no acute distress. Patient reports he is feeling well overall. SOB and cough are improving. Denies chest pain. Patient currently stable and medical condition improving, can be discharged. PLAN - Will transition patient from IV to PO steroids. - Continue course of antibiotics - Continue nebulizer therapy at home Objective - Vital Signs/Intake and Output Vital Signs (last 24 hours): Temp Pulse Resp BP Pulse Ox 98.3 F 105 H 20 152/75 H 95 06/13/18 07:00 06/13/18 12:40 06/13/18 07:00 06/13/18 07:00 06/13/18 07:00 Intake and Output: 06/13/18 06/13/18 06:59 18:59 Intake Total 480 750 Balance 480 750 - Medications Medications: Current Medications Enoxaparin Sodium (Lovenox) 40 mg SC DAILY [facility] Last Admin: 06/13/18 10:20 Dose: 40 mg Fluticasone/Vilanterol (Breo Ellipta 100-25 Mcg Inh) 1 puff INH RQ24 [facility] Last Admin: 06/13/18 07:33 Dose: 1 puff Ceftriaxone Sodium 1 gm/ (Sodium Chloride) 100 mls @ 100 mls/hr IVPB DAILY [facility]; Protocol Last Admin: 06/13/18 09:15 Dose: 100 mls/hr Azithromycin 500 mg/ Sodium (Chloride) 250 mls @ 167 mls/hr IVPB Q24H [facility]; Protocol Last Admin: 06/13/18 10:27 Dose: 167 mls/hr Methylprednisolone (Solu-Medrol) 60 mg IVP Q8H [facility] Last Admin: 06/13/18 10:21 Dose: 60 mg Montelukast Sodium (Singulair) 10 mg PO HS [facility] Last Admin: 06/12/18 21:47 Dose: 10 mg - Labs Labs: 06/13/18 06:47 06/13/18 06:47 Assessment and Plan (1) COPD exacerbation Status: Acute
--- NOTE | 2018-06-13 18:43 | CP.PCM.PN ---
Subjective - Date & Time of Evaluation Date of Evaluation: 06/13/18 Time of Evaluation: 13:00 - Subjective Subjective: clinically same Objective - Vital Signs/Intake and Output Vital Signs (last 24 hours): Temp Pulse Resp BP Pulse Ox 98.2 F 89 20 138/93 H 96 06/13/18 15:14 06/13/18 15:14 06/13/18 15:14 06/13/18 15:14 06/13/18 15:14 Intake and Output: 06/13/18 06/13/18 06:59 18:59 Intake Total 480 750 Balance 480 750 - Medications Medications: Current Medications Albuterol/Ipratropium (Duoneb 3 Mg/0.5 Mg (3 Ml) Ud) 3 ml INH RQ6 [facility] Enoxaparin Sodium (Lovenox) 40 mg SC DAILY [facility] Last Admin: 06/13/18 10:20 Dose: 40 mg Fluticasone/Vilanterol (Breo Ellipta 100-25 Mcg Inh) 1 puff INH RQ24 [facility] Last Admin: 06/13/18 07:33 Dose: 1 puff Ceftriaxone Sodium 1 gm/ (Sodium Chloride) 100 mls @ 100 mls/hr IVPB DAILY [facility]; Protocol Last Admin: 06/13/18 09:15 Dose: 100 mls/hr Azithromycin 500 mg/ Sodium (Chloride) 250 mls @ 167 mls/hr IVPB Q24H [facility]; Protocol Last Admin: 06/13/18 10:27 Dose: 167 mls/hr Methylprednisolone (Solu-Medrol) 40 mg IVP Q8H [facility] Montelukast Sodium (Singulair) 10 mg PO HS [facility] Last Admin: 06/12/18 21:47 Dose: 10 mg - Labs Labs: 06/13/18 06:47 06/13/18 06:47
[2018-06-13] MEDS: Albuterol-Ipratrop 3 mg / 0.5 (3 ml) UD INH SCH (21:15)
--- NOTE | 2018-06-13 21:45 | CARD ---
APPROVED REPORT Date of service: 06/11/2018 EKG Measurement Heart [id number] <Conclusion> Sinus tachycardia Otherwise normal ECG
[2018-06-14] MEDS: MethylPREDNISolone 40 mg Vial IVP SCH ×2 (00:48→09:44)
[2018-06-14] MEDS: Albuterol-Ipratrop 3 mg / 0.5 (3 ml) UD INH SCH ×2 (01:30→08:02)
[2018-06-14 06:28] LABS: BASO # 0.1 K/uL (0.0-0.2); BASO % 0.3 % (0.0-2.0); HEMOGLOBIN 14.3 g/dL (12.0-18.0); LYMPH # 0.8 K/uL (1.0-4.3); LYMPH % 4.7 % (20.0-40.0); MEAN CELL VOLUME 100.3 fL (80.0-94.0); MEAN CORPUSCULAR HEMOGLOBIN 34.5 pg (27.0-31.0); MEAN CORPUSCULAR HGB CONC 34.4 g/dL (33.0-37.0); MEAN PLATELET VOLUME 8.4 fL (7.2-11.7); MONO # 0.5 K/uL (0.0-0.8); NEUT # 16.4 K/uL (1.8-7.0); PLATELET COUNT 327 K/uL (130-400); RBC 4.15 Mil/uL (4.40-5.90); RED CELL DISTRIBUTION WIDTH 12.2 % (11.5-14.5); WHITE BLOOD COUNT 17.8 K/uL (4.8-10.8)
[2018-06-14 08:02] VITALS: BP 148/92; PULSE 84; TEMP 98.1; O2SAT 96
[2018-06-14] MEDS: Fluticasone-Vilanterol 100/25mcg Diskus INH SCH (08:02)
--- NOTE | 2018-06-14 08:28 | CP.PCM.PN ---
Subjective - Date & Time of Evaluation Date of Evaluation: 06/14/18 Time of Evaluation: 08:28 - Subjective Subjective: PGY-2 Progress Note Patient seen and examined at bedside. Per nursing no acute events occurred overnight. Patient denies any chest pain, shortness of breath, fevers, chills, dizziness, or any other complaints. 57 year old male with a past medical history of copd and hepatitis c comes into the hospital after becoming short of breath while at home. The patient reports using his albuterol pump, however the symptoms persisted. The patient has multiple admissions in the past for similar symptoms. Patient denies any chest pain, nausea, vomiting, dizziness, syncopal episodes, or any other complaints. Medical history: copd, hepatitis c Surgical history: Denies Social history: Former smoker. Quit 4 years ago. Denies illicit drug use. Allergies:Denies Medications: Asthma pump,Advair Objective - Vital Signs/Intake and Output Vital Signs (last 24 hours): Temp Pulse Resp BP Pulse Ox 98.1 F 84 20 148/92 H 96 06/14/18 07:00 06/14/18 07:00 06/14/18 07:00 06/14/18 07:00 06/14/18 07:00 Intake and Output: 06/14/18 06/14/18 06:59 18:59 Intake Total 20 Balance 20 - Medications Medications: Current Medications Albuterol/Ipratropium (Duoneb 3 Mg/0.5 Mg (3 Ml) Ud) 3 ml INH RQ6 [facility] Last Admin: 06/14/18 08:02 Dose: 3 ml Enoxaparin Sodium (Lovenox) 40 mg SC DAILY [facility] Last Admin: 06/13/18 10:20 Dose: 40 mg Fluticasone/Vilanterol (Breo Ellipta 100-25 Mcg Inh) 1 puff INH RQ24 [facility] Last Admin: 06/14/18 08:02 Dose: 1 puff Ceftriaxone Sodium 1 gm/ (Sodium Chloride) 100 mls @ 100 mls/hr IVPB DAILY [facility]; Protocol Last Admin: 06/13/18 09:15 Dose: 100 mls/hr Azithromycin 500 mg/ Sodium (Chloride) 250 mls @ 167 mls/hr IVPB Q24H [facility]; Protocol Last Admin: 06/13/18 10:27 Dose: 167 mls/hr Methylprednisolone (Solu-Medrol) 40 mg IVP Q8H [facility] Last Admin: 06/14/18 00:48 Dose: 40 mg Montelukast Sodium (Singulair) 10 mg PO HS [facility] Last Admin: 06/13/18 21:08 Dose: 10 mg - Labs Labs: 06/14/18 06:23 06/13/18 06:47 - Head Exam Head Exam: ATRAUMATIC, NORMAL INSPECTION - Eye Exam Eye Exam: EOMI, Normal appearance, PERRL Pupil Exam: NORMAL ACCOMODATION - ENT Exam ENT Exam: Mucous Membranes Moist, Normal Oropharynx - Respiratory Exam Respiratory Exam: Clear to Ausculation Bilateral, NORMAL BREATHING PATTERN. absent: Respiratory Distress - Cardiovascular Exam Cardiovascular Exam: REGULAR RHYTHM, +S1, +S2 - GI/Abdominal Exam GI & Abdominal Exam: Soft, Normal Bowel Sounds. absent: Hyperactive Bowel Sounds - Extremities Exam Extremities Exam: Full ROM. absent: Pedal Edema - Back Exam Back Exam: NORMAL INSPECTION. absent: paraspinal tenderness - Neurological Exam Neurological Exam: Alert, Awake, CN II-XII Intact, Oriented x3 - Psychiatric Exam Psychiatric exam: Normal Affect, Normal Mood - Skin Skin Exam: Dry, Intact, Normal Color Assessment and Plan - Assessment and Plan (Free Text) Plan: COPD CXR :Mild bilateral apical pleural thickening. :Patchy increased interstitial markenings Medications: Singulair 10mg PO HS Duonebs 3ml RQ6 Fluticasone/Vilanterol 1puff INH [id number] Methylprednisolone 40mg IVP Q8H Azithromycin 500MG IVPB Q24 [address] Marshall consulted :- Will transition patient from IV to PO steroids. - Continue course of antibiotics - Continue nebulizer therapy at home PPX Lovenox 40mg sc DAILY All management per Dr. Khoi Fernandez- PGY2 Discharge Instructions: 1.F/u with PMD within 1 Week of discharge. 2.Return to hospital for any new or worsening symptoms. Medications: 1.Duonebs 3ml IH Q4 PRN , #30 Neb, 0 Refills 2.Breo 1 puff INH Daily, 1 Pump, 0 Refills 3.Medrol dose pack, 0 Refills 4.Z-pack, 0 Refills 5.Ventolin 2 puff IH Q6, 1 Pump, O refills
[2018-06-14 09:07] LABS: LYMPHOCYTE 2 % (20-40); MONOCYTE 3 % (0-10); NEUTROPHIL 95 % (50-75); TOTAL CELLS COUNTED 100
[2018-06-14 09:08] LABS: PLATELET ESTIMATE NORMAL (NORMAL)
[2018-06-14] MEDS: Enoxaparin 40 mg Syringe SC SCH (09:44)
[2018-06-14] MEDS: Azithromycin 500 MG in Sodium Chloride 0.9% 250 ML IVPB SCH (11:35)
[2018-06-14] MEDS ORDERED: Influenza Vaccine 60 MCG/0.5 ML SYR (3 yr & up) IM ONE (12:39)
== END 2018-06-14 13:04 | disposition home or self-care (01) | DRG 192 ==
LOC: C.ER 01:11 → C.6T 04:10
PROVIDERS: ADMIT Internal Medicine Nephrology; ATTEND Internal Medicine Nephrology
DX: J44.1 Chronic obstructive pulmonary disease with (acute) exacerbation (principal); B19.20 Unspecified viral hepatitis C without hepatic coma; I10 Essential (primary) hypertension; Z87.891 Personal history of nicotine dependence

== ENCOUNTER 2018-08-02 21:13 | Inpatient (IN) | payer MEDICARE, MEDICAID ==
[2018-08-02 21:14] VITALS: BMI 25.0
[2018-08-02] MEDS ORDERED: Sodium Chloride 0.9% 1,000 ML IV ONE (21:31)
[2018-08-02] MEDS ORDERED: Albuterol-Ipratrop 3 mg / 0.5 (3 ml) UD INH STA ×3 (21:31→21:32)
[2018-08-02] MEDS ORDERED: Magnesium Sulfate 1 gm in D5W 1 GM/100 ML BAG IVPB ONE ×3 (21:33→21:35)
--- NOTE | 2018-08-02 21:37 | C.PDOC ---
History Of Present Illness 57 year old male with a Hx of COPD presents to the ER after sudden onset of SOB that began 1 hour ago. Denies chest pain, nausea, or vomiting. Chief Complaint (Nursing): Shortness Of Breath History Per: Patient History/Exam Limitations: no limitations Onset/Duration Of Symptoms: Hrs (1), Sudden Onset Current Symptoms Are (Timing): Still Present Current Respiratory Medications: See Home Med List Associated Symptoms: denies: Chest Pain, Other (Nausea, vomiting) Recent travel outside of the [place]: No Past Medical History Reviewed: Historical Data, Nursing Documentation, Vital Signs Vital Signs: Last Vital Signs Temp 98 F 08/02/18 21:25 Pulse 131 H 08/02/18 21:25 Resp 22 08/02/18 21:25 BP 135/89 08/02/18 21:25 Pulse Ox 92 L 08/02/18 21:25 - Medical History PMH: Asthma, COPD, HTN Denies: Chronic Kidney Disease - [facility] Procedures INFLUENZA VACCINATION (09/13/14) VACCINATION NEC (09/13/14) Family History: States: Unknown Family Hx - Social History Hx Tobacco Use: Yes Hx Alcohol Use: Yes (SOCIAL) Hx Substance Use: No (past hx) - Immunization History Hx Tetanus Toxoid Vaccination: No Hx Influenza Vaccination: No Hx Pneumococcal Vaccination: No Review Of Systems Constitutional: Negative for: Fever, Chills Cardiovascular: Negative for: Chest Pain, Palpitations Respiratory: Positive for: Shortness of Breath. Negative for: Cough Gastrointestinal: Negative for: Nausea, Vomiting Genitourinary: Negative for: Dysuria, Hematuria Neurological: Negative for: Weakness, Numbness Physical Exam - Physical Exam Appears: Other (Markedly dyspneic, Alert and conscious) Skin: Normal Color, Warm, Dry Head: Atraumatic, Normacephalic Eye(s): bilateral: Normal Inspection Nose: Normal Oral Mucosa: Moist Neck: Normal, Supple Chest: Symmetrical, No Tenderness Cardiovascular: Rhythm Regular Respiratory: No Rales, Rhonchi (Bilateral), Wheezing (Bilateral) Back: No CVA Tenderness Extremity: Normal ROM (x4) Neurological/Psych: Oriented x3, Normal Speech ED Course And Treatment - Laboratory Results Result Diagrams: 08/02/18 21:46 08/02/18 21:46 O2 Sat by Pulse Oximetry: 92 (Room air) - Radiology CXR: Interpreted by Me CXR Interpretation: Yes: No Acute Disease. No: Infiltrates, Cardiomegaly (Slightly increased broncho-vascular markings, no infiltrate.) Progress Note: EKG, blood work, and CXR ordered. Albuterol, mag sulfate, solumedrol, and IV fluids administered. Disposition Discussed With Dr.: Bandar Norman - Disposition Referrals: Bandar Norman MD [Staff Provider] - Disposition: HOSPITALIZED Disposition Time: 23:09 Condition: STABLE Forms: [employer] ([employer]) - POA Present On Arrival: None - Clinical Impression Clinical Impression: COPD exacerbation - Scribe Statement The provider has reviewed the documentation as recorded by the Scribe Brett Kumar All medical record entries made by the Scribe were at my direction and personally dictated by me. I have reviewed the chart and agree that the record accurately reflects my personal performance of the history, physical exam, med ica decision making, and the department course for this patient. I have also personally directed, reviewed, and agree with the discharge instructions and disposition.
[2018-08-02 21:52] LABS: BASO # 0.1 K/uL (0.0-0.2); EOS % 0.1 % (0.0-4.0); HEMOGLOBIN 13.5 g/dL (12.0-18.0); LYMPH # 3.9 K/uL (1.0-4.3); LYMPH % 48.3 % (20.0-40.0); MEAN CELL VOLUME 99.2 fL (80.0-94.0); MEAN CORPUSCULAR HEMOGLOBIN 33.5 pg (27.0-31.0); MEAN CORPUSCULAR HGB CONC 33.8 g/dL (33.0-37.0); MEAN PLATELET VOLUME 7.6 fL (7.2-11.7); MONO # 0.3 K/uL (0.0-0.8); MONO % 4.1 % (0.0-10.0); NEUT # 3.8 K/uL (1.8-7.0); NEUT % 46.5 % (50.0-75.0); RBC 4.02 Mil/uL (4.40-5.90); WHITE BLOOD COUNT 8.1 K/uL (4.8-10.8)
[2018-08-02] MEDS ORDERED: Albuterol-Ipratrop 3 mg / 0.5 (3 ml) UD ONE (22:03)
[2018-08-02 22:08] LABS: ALB/GLOB RATIO 1.1 (1.0-2.1); ALBUMIN 3.7 g/dL (3.5-5.0); ALT/SGPT 259 U/L (21-72); AST/SGOT 139 U/L (17-59); BLOOD UREA NITROGEN 10 mg/dL (9-20); CALCIUM 9.1 mg/dl (8.6-10.4); GFR NON-AFRICAN AMERICAN > 60
[2018-08-02 22:18] LABS: B-TYPE NATRIURETIC PEPTIDE 69.3 pg/mL (0-900)
[2018-08-02] MEDS ORDERED: cefTRIAXone IV 1 gm in Dextros 50 ML IVPB ONE (23:22)
[2018-08-02] MEDS ORDERED: cefTRIAXone 1 gm 1 GM/100 ML BAG IVPB ONE (23:27)
[2018-08-03] MEDS: Albuterol-Ipratrop 3 mg / 0.5 (3 ml) UD IH SCH ×3 (00:39→13:30)
[2018-08-03] MEDS: MethylPREDNISolone 40 mg Vial IVP SCH ×3 (05:27→21:38)
[2018-08-03 07:32] LABS: MEAN CELL VOLUME 99.3 fL (80.0-94.0); MEAN CORPUSCULAR HEMOGLOBIN 34.3 pg (27.0-31.0); MEAN CORPUSCULAR HGB CONC 34.5 g/dL (33.0-37.0); MEAN PLATELET VOLUME 7.6 fL (7.2-11.7); RBC 3.8 Mil/uL (4.40-5.90)
[2018-08-03 07:33] LABS: WHITE BLOOD COUNT 15.6 K/uL (4.8-10.8)
[2018-08-03 07:51] LABS: ALB/GLOB RATIO 1.1 (1.0-2.1); ALBUMIN 3.6 g/dL (3.5-5.0); ALT/SGPT 243 U/L (21-72); AST/SGOT 114 U/L (17-59); BLOOD UREA NITROGEN 13 mg/dL (9-20); GFR NON-AFRICAN AMERICAN > 60
--- NOTE | 2018-08-03 09:29 | RAD ---
Chest x-ray two views HISTORY: Shortness of breath. COMPARISON: 06/11/2018 Findings: Biapical pleural thickening. Small nodular density seen in the lateral aspect of the right upper to mid lung zone may represent vessel on end versus small nodule and or granuloma. Clinical correlation. No focal infiltrate or effusion. Heart size within normal limits. Degenerative changes in the spine and shoulders. Impression: Biapical pleural thickening. Small nodular density seen in the lateral aspect of the right upper to mid lung zone may represent vessel on end versus small nodule and or granuloma. Clinical correlation. No focal infiltrate or effusion.
[2018-08-03] MEDS: Pantoprazole 40 mg EC Tab PO SCH (09:43)
[2018-08-03] MEDS: Enoxaparin 40 mg Syringe SC SCH (09:43)
[2018-08-03] MEDS: cefTRIAXone IV 1 gm in Dextros 50 ML IVPB SCH (09:44)
--- NOTE | 2018-08-03 09:59 | CP.PCM.CON ---
History of Present Illness - History of Present Illness History of Present Illness: CHART REVIEWED. PT SEEN AND EXAMINED 57 YO MALE WITH A HX COPD, _MULT ADM FOR EXAC, ADM WITH INCREASED MOD-SEVERE SOB WITH MIN EXERTION IN COLD WEATHER X 1 DAY. +COUGH NO SPTUM., NO FEVER. USING ONLY VENTOLIN PRN. +HOME NEB. NO HOME O2. LAST ADM 1 MONTH AGO, FREQ ER VISITS. QUIT SMOKING 4 YRS AGO. HIV NEG IN PAST. Review of Systems - Review of Systems All systems: reviewed and no additional remarkable complaints except - Constitutional Constitutional: absent: Chills, Fever - EENT Eyes: absent: Change in Vision Ears: absent: Decreased Hearing Nose/Mouth/Throat: absent: Nasal Congestion - Cardiovascular Cardiovascular: absent: Chest Pain - Respiratory Respiratory: Cough, Dyspnea, Dyspnea on Exertion. absent: Chest Congestion, Excessive Mucous Production, Change in Mucous Color - Gastrointestinal Gastrointestinal: absent: Diarrhea, Nausea, Vomiting - Genitourinary Genitourinary: absent: Difficulty Urinating - Musculoskeletal Musculoskeletal: absent: Muscle Weakness - Integumentary Integumentary: absent: Rash - Neurological Neurological: absent: Confusion, Dizziness, Focal Weakness - Psychiatric Psychiatric: absent: Anxiety - Endocrine Endocrine: absent: Change in Body Appearance - Hematologic/Lymphatic Hematologic: absent: Lymphadenopathy Past Patient History - Infectious Disease Hx of Infectious Diseases: None - Past Medical History & Family History Past Medical History?: Yes Pertinent Family History: +ASTHMA - Past Social History Smoking Status: Former Smoker Chewing Tobacco Use: No Cigar Use: No Alcohol: Occasional Drugs: Denies - CARDIAC Hx Cardiac Disorders: No Hx Hypertension: Yes - PULMONARY Hx Asthma: Yes Hx Chronic Obstructive Pulmonary Disease (COPD): Yes - NEUROLOGICAL Hx Neurological Disorder: No - HEENT Hx HEENT Problems: No - RENAL Hx Chronic Kidney Disease: No - ENDOCRINE/METABOLIC Hx Endocrine Disorders: No - HEMATOLOGICAL/ONCOLOGICAL Hx Blood Disorders: No - INTEGUMENTARY Hx Dermatological Problems: No - MUSCULOSKELETAL/RHEUMATOLOGICAL Hx Falls: No - GASTROINTESTINAL Hx Gastrointestinal Disorders: No - GENITOURINARY/GYNECOLOGICAL Hx Genitourinary Disorders: No - PSYCHIATRIC Hx Substance Use: No (past hx) - SURGICAL HISTORY Hx Surgeries: No Other/Comment: no other information given by patient - ANESTHESIA Hx Anesthesia: No Hx Anesthesia Reactions: No Hx Malignant Hyperthermia: No Meds Allergies/Adverse Reactions: Allergies Allergy/AdvReac Type Severity Reaction Status Date / Time No Known Allergies Allergy Verified 08/02/18 21:23 - Medications Medications: Current Medications Albuterol/Ipratropium (Duoneb 3 Mg/0.5 Mg (3 Ml) Ud) 3 ml IH Q6 [facility] Last Admin: 08/03/18 07:21 Dose: 3 ml Enoxaparin Sodium (Lovenox) 40 mg SC DAILY [facility] Last Admin: 08/03/18 09:43 Dose: 40 mg Azithromycin 500 mg/ Sodium (Chloride) 250 mls @ 250 mls/hr IVPB DAILY [facility]; Pr otocol Ceftriaxone Sodium (Rocephin Iv 1 Gm Duplex) 50 mls @ 100 mls/hr IVPB DAILY [facility]; Protocol Last Admin: 08/03/18 09:44 Dose: 100 mls/hr Methylprednisolone (Solu-Medrol) 40 mg IVP Q8 [facility] Last Admin: 08/03/18 05:27 Dose: 40 mg Pantoprazole Sodium (Protonix Ec Tab) 40 mg PO DAILY [facility] Last Admin: 08/03/18 09:43 Dose: 40 mg Physical Exam - Constitutional Appears: No Acute Distress - Head Exam Head Exam: ATRAUMATIC, NORMOCEPHALIC - Eye Exam Eye Exam: EOMI, Normal appearance - ENT Exam ENT Exam: Mucous Membranes Moist - Neck Exam Neck exam: Positive for: Normal Inspection - Respiratory Exam Respiratory Exam: Decreased Breath Sounds. absent: Accessory Muscle Use, Respiratory Distress - Cardiovascular Exam Cardiovascular Exam: RRR, +S1, +S2 - GI/Abdominal Exam GI & Abdominal Exam: Soft. absent: Tenderness - Rectal Exam Rectal Exam: Deferred - Extremities Exam Extremities exam: Negative for: calf tenderness, pedal edema - Back Exam Back exam: absent: CVA tenderness (L), CVA tenderness (R) - Neurological Exam Neurological exam: Alert, CN II-XII Intact, Oriented x3 - Psychiatric Exam Psychiatric exam: Normal Mood Results - Vital Signs Recent Vital Signs: Last Vital Signs Temp 98.5 F 08/03/18 07:58 Pulse 114 H 08/03/18 07:58 Resp 20 08/03/18 07:58 BP 144/89 08/03/18 07:58 Pulse Ox 95 08/03/18 07:58 - Labs Result Diagrams: 08/03/18 07:23 08/03/18 07:23 Labs: Laboratory Results - last 24 hr 08/02/18 08/02/18 08/02/18 21:46 21:46 21:46 WBC 8.1 D RBC 4.02 L Hgb 13.5 Hct 39.9 MCV 99.2 H MCH 33.5 H MCHC 33.8 RDW 13.0 Plt Count 358 MPV 7.6 Neut % (Auto) 46.5 L Lymph % (Auto) 48.3 H [place] % (Auto) 4.1 Eos % (Auto) 0.1 Baso % (Auto) 1.0 Neut # (Auto) 3.8 Lymph # (Auto) 3.9 [place] # (Auto) 0.3 Eos # (Auto) 0.0 Baso # (Auto) 0.1 D-Dimer, Quantitative < 200 Sodium 137 Potassium 3.4 L Chloride 97 L Carbon Dioxide 24 Anion Gap 19 BUN 10 Creatinine 0.9 Est GFR ( Amer) > 60 Est GFR (Non-Af Amer) > 60 Random Glucose 200 H Calcium 9.1 Total Bilirubin 0.7 AST 139 H D ALT 259 H Alkaline Phosphatase 92 Troponin I < 0.0120 NT-Pro-B Natriuret Pep 69.3 Total Protein 7.0 Albumin 3.7 Globulin 3.2 Albumin/Globulin Ratio 1.1 08/03/18 08/03/18 07:23 07:23 WBC 15.6 H D RBC 3.80 L Hgb 13.0 Hct 37.7 MCV 99.3 H MCH 34.3 H MCHC 34.5 RDW 13.0 Plt Count 317 MPV 7.6 Neut % (Auto) Lymph % (Auto) [place] % (Auto) Eos % (Auto) Baso % (Auto) Neut # (Auto) Lymph # (Auto) [place] # (Auto) Eos # (Auto) Baso # (Auto) D-Dimer, Quantitative Sodium 137 Potassium 4.7 Chloride 103 Carbon Dioxide 25 Anion Gap 14 BUN 13 Creatinine 0.7 L Est GFR ( Amer) > 60 Est GFR (Non-Af Amer) > 60 Random Glucose 152 H Calcium 9.0 Total Bilirubin 1.0 AST 114 H ALT 243 H Alkaline Phosphatase 76 Troponin I NT-Pro-B Natriuret Pep Total Protein 7.0 Albumin 3.6 Globulin 3.4 Albumin/Globulin Ratio 1.1 Assessment & Plan (1) Lung nodule Status: Acute (2) Bronchitis Status: Acute (3) Transaminitis Status: Acute (4) COPD exacerbation Status: Acute - Assessment and Plan (Free Text) Assessment: 57 YO MALE WITH A HX COPD ADM WITH ACUTE EXAC, +ACUTE BRONCHITIS, CXR REVIEWED, NO EVID PNA. CT CHETS FOR BETTER EVAL ?LUNG NODULE. CONT IV STEROIDS, NEB BD., ADD ADVAIR. MONITOR O2 SAT. EMPIRIC AB. GI/DVT PROPHYLAXIS. PFT;S WHEN STABLE. DISCUSSED WITH STAFF AT LENGTH.
[2018-08-03] MEDS: Azithromycin 500 MG in Sodium Chloride 0.9% 250 ML IVPB SCH (10:51)
--- NOTE | 2018-08-03 18:45 | CP.PCM.HP ---
Past Patient History - Infectious Disease Hx of Infectious Diseases: None - Past Medical History & Family History Past Medical History?: Yes - Past Social History Smoking Status: Former Smoker Chewing Tobacco Use: No Cigar Use: No Alcohol: Occasional Drugs: Denies - CARDIAC Hx Cardiac Disorders: No Hx Hypertension: Yes - PULMONARY Hx Asthma: Yes Hx Chronic Obstructive Pulmonary Disease (COPD): Yes - NEUROLOGICAL Hx Neurological Disorder: No - HEENT Hx HEENT Problems: No - RENAL Hx Chronic Kidney Disease: No - ENDOCRINE/METABOLIC Hx Endocrine Disorders: No - HEMATOLOGICAL/ONCOLOGICAL Hx Blood Disorders: No - INTEGUMENTARY Hx Dermatological Problems: No - MUSCULOSKELETAL/RHEUMATOLOGICAL Hx Falls: No - GASTROINTESTINAL Hx Gastrointestinal Disorders: No - GENITOURINARY/GYNECOLOGICAL Hx Genitourinary Disorders: No - PSYCHIATRIC Hx Substance Use: No (past hx) - SURGICAL HISTORY Hx Surgeries: No Other/Comment: no other information given by patient - ANESTHESIA Hx Anesthesia: No Hx Anesthesia Reactions: No Hx Malignant Hyperthermia: No Meds Allergies/Adverse Reactions: Allergies Allergy/AdvReac Type Severity Reaction Status Date / Time No Known Allergies Allergy Verified 08/02/18 21:23 Physical Exam - Constitutional Appears: Well - Head Exam Head Exam: ATRAUMATIC, NORMAL INSPECTION, NORMOCEPHALIC - Eye Exam Eye Exam: EOMI, Normal appearance, PERRL Pupil Exam: NORMAL ACCOMODATION, PERRL - ENT Exam ENT Exam: Mucous Membranes Moist, Normal Exam - Neck Exam Neck exam: Positive for: Normal Inspection - Respiratory Exam Respiratory Exam: Decreased Breath Sounds - Cardiovascular Exam Cardiovascular Exam: REGULAR RHYTHM, +S1, +S2 - GI/Abdominal Exam GI & Abdominal Exam: Diminished Bowel Sounds, Soft - Rectal Exam Rectal Exam: Deferred Results - Vital Signs Recent Vital Signs: Last Vital Signs Temp 98.5 F 08/03/18 16:00 Pulse 105 H 08/03/18 16:00 Resp 20 08/03/18 16:00 BP 132/83 08/03/18 16:00 Pulse Ox 95 08/03/18 16:00 - Labs Result Diagrams: 08/03/18 07:23 08/03/18 07:23 Labs: Laboratory Results - last 24 hr 08/02/18 08/02/18 08/02/18 21:46 21:46 21:46 WBC 8.1 D RBC 4.02 L Hgb 13.5 Hct 39.9 MCV 99.2 H MCH 33.5 H MCHC 33.8 RDW 13.0 Plt Count 358 MPV 7.6 Neut % (Auto) 46.5 L Lymph % (Auto) 48.3 H [place] % (Auto) 4.1 Eos % (Auto) 0.1 Baso % (Auto) 1.0 Neut # (Auto) 3.8 Lymph # (Auto) 3.9 [place] # (Auto) 0.3 Eos # (Auto) 0.0 Baso # (Auto) 0.1 D-Dimer, Quantitative < 200 Sodium 137 Potassium 3.4 L Chloride 97 L Carbon Dioxide 24 Anion Gap 19 BUN 10 Creatinine 0.9 Est GFR ( Amer) > 60 Est GFR (Non-Af Amer) > 60 Random Glucose 200 H Calcium 9.1 Total Bilirubin 0.7 AST 139 H D ALT 259 H Alkaline Phosphatase 92 Troponin I < 0.0120 NT-Pro-B Natriuret Pep 69.3 Total Protein 7.0 Albumin 3.7 Globulin 3.2 Albumin/Globulin Ratio 1.1 08/03/18 08/03/18 07:23 07:23 WBC 15.6 H D RBC 3.80 L Hgb 13.0 Hct 37.7 MCV 99.3 H MCH 34.3 H MCHC 34.5 RDW 13.0 Plt Count 317 MPV 7.6 Neut % (Auto) Lymph % (Auto) [place] % (Auto) Eos % (Auto) Baso % (Auto) Neut # (Auto) Lymph # (Auto) [place] # (Auto) Eos # (Auto) Baso # (Auto) D-Dimer, Quantitative Sodium 137 Potassium 4.7 Chloride 103 Carbon Dioxide 25 Anion Gap 14 BUN 13 Creatinine 0.7 L Est GFR ( Amer) > 60 Est GFR (Non-Af Amer) > 60 Random Glucose 152 H Calcium 9.0 Total Bilirubin 1.0 AST 114 H ALT 243 H Alkaline Phosphatase 76 Troponin I NT-Pro-B Natriuret Pep Total Protein 7.0 Albumin 3.6 Globulin 3.4 Albumin/Globulin Ratio 1.1
[2018-08-04] MEDS: Albuterol-Ipratrop 3 mg / 0.5 (3 ml) UD IH SCH ×4 (01:26→19:57)
[2018-08-04] MEDS: MethylPREDNISolone 40 mg Vial IVP SCH ×3 (06:03→21:33)
[2018-08-04] MEDS: Fluticasone-Vilanterol 100/25mcg Diskus INH SCH (08:28)
[2018-08-04] MEDS: Enoxaparin 40 mg Syringe SC SCH (09:53)
[2018-08-04] MEDS: Pantoprazole 40 mg EC Tab PO SCH (09:53)
[2018-08-04] MEDS: cefTRIAXone IV 1 gm in Dextros 50 ML IVPB SCH (09:58)
[2018-08-04] MEDS: Azithromycin 500 MG in Sodium Chloride 0.9% 250 ML IVPB SCH (10:52)
[2018-08-04] MEDS ORDERED: DiphenhydrAMINE 50 mg/ml Inj IVP PRN (12:45)
--- NOTE | 2018-08-04 15:45 | CP.PCM.PN ---
Subjective - Date & Time of Evaluation Date of Evaluation: 08/04/18 Time of Evaluation: 07:45 - Subjective Subjective: clinically same Objective - Vital Signs/Intake and Output Vital Signs (last 24 hours): Temp Pulse Resp BP Pulse Ox 98.1 F 91 H 20 131/86 97 08/04/18 07:00 08/04/18 07:00 08/04/18 07:00 08/04/18 07:00 08/04/18 08:00 Intake and Output: 08/04/18 08/04/18 06:59 18:59 Intake Total 500 780 Output Total 500 600 Balance 0 180 - Medications Medications: Current Medications Albuterol/Ipratropium (Duoneb 3 Mg/0.5 Mg (3 Ml) Ud) 3 ml IH RQ6 [facility] Last Admin: 08/04/18 13:20 Dose: Not Given Diphenhydramine HCl (Benadryl) 25 mg IVP Q8 PRN PRN Reason: Allergy symptoms Last Admin: 08/04/18 13:00 Dose: 25 mg Enoxaparin Sodium (Lovenox) 40 mg SC DAILY [facility] Last Admin: 08/04/18 09:53 Dose: 40 mg Fluticasone/Vilanterol (Breo Ellipta 100-25 Mcg Inh) 1 puff INH RQD [facility] Last Admin: 08/04/18 08:28 Dose: 1 puff Moxifloxacin HCl (Avelox Iv 400mg/250ml Ns) 400 mg in 250 mls @ 167 mls/hr IVPB Q24H [facility]; Protocol Methylprednisolone (Solu-Medrol) 40 mg IVP Q8 [facility] Last Admin: 08/04/18 13:01 Dose: 40 mg Pantoprazole Sodium (Protonix Ec Tab) 40 mg PO DAILY [facility] Last Admin: 08/04/18 09:53 Dose: 40 mg - Labs Labs: 08/03/18 07:23 08/03/18 07:23 - Constitutional Appears: Well - Head Exam Head Exam: ATRAUMATIC, NORMAL INSPECTION, NORMOCEPHALIC - Eye Exam Eye Exam: EOMI, Normal appearance, PERRL Pupil Exam: NORMAL ACCOMODATION, PERRL - ENT Exam ENT Exam: Mucous Membranes Moist, Normal Exam - Neck Exam Neck Exam: Full ROM, Normal Inspection. absent: Lymphadenopathy - Respiratory Exam Respiratory Exam: Decreased Breath Sounds - Cardiovascular Exam Cardiovascular Exam: REGULAR RHYTHM, +S1, +S2 - GI/Abdominal Exam GI & Abdominal Exam: Soft, Diminished Bowel Sounds - Rectal Exam Rectal Exam: Deferred
--- NOTE | 2018-08-04 19:35 | CP.PCM.PN ---
Subjective - Date & Time of Evaluation Date of Evaluation: 08/04/18 Time of Evaluation: 19:32 - Subjective Subjective: PT ALERT, LESS COUGH. LESS SOB., +RASH EARLIER AFTER AB, NOW BETTER. ROS; OTHERWISE NEG. Objective - Vital Signs/Intake and Output Vital Signs (last 24 hours): Temp Pulse Resp BP Pulse Ox 98.3 F 101 H 21 151/79 H 96 08/04/18 16:02 08/04/18 16:02 08/04/18 16:02 08/04/18 16:02 08/04/18 16:02 Intake and Output: 08/04/18 08/05/18 18:59 06:59 Intake Total 780 Output Total 600 Balance 180 - Medications Medications: Current Medications Albuterol/Ipratropium (Duoneb 3 Mg/0.5 Mg (3 Ml) Ud) 3 ml IH RQ6 [facility] Last Admin: 08/04/18 13:20 Dose: Not Given Diphenhydramine HCl (Benadryl) 25 mg IVP Q8 PRN PRN Reason: Allergy symptoms Last Admin: 08/04/18 13:00 Dose: 25 mg Enoxaparin Sodium (Lovenox) 40 mg SC DAILY [facility] Last Admin: 08/04/18 09:53 Dose: 40 mg Fluticasone/Vilanterol (Breo Ellipta 100-25 Mcg Inh) 1 puff INH RQD [facility] Last Admin: 08/04/18 08:28 Dose: 1 puff Moxifloxacin HCl (Avelox Iv 400mg/250ml Ns) 400 mg in 250 mls @ 167 mls/hr IVPB Q24H [facility]; Protocol Methylprednisolone (Solu-Medrol) 40 mg IVP Q8 [facility] Last Admin: 08/04/18 13:01 Dose: 40 mg Pantoprazole Sodium (Protonix Ec Tab) 40 mg PO DAILY [facility] Last Admin: 08/04/18 09:53 Dose: 40 mg - Labs Labs: 08/03/18 07:23 08/03/18 07:23 - Constitutional Appears: Non-toxic, No Acute Distress - Head Exam Head Exam: ATRAUMATIC, NORMOCEPHALIC - Eye Exam Eye Exam: EOMI, Normal appearance - ENT Exam ENT Exam: Mucous Membranes Moist - Neck Exam Neck Exam: Normal Inspection - Respiratory Exam Respiratory Exam: Decreased Breath Sounds. absent: Wheezes, Respiratory Distress - Cardiovascular Exam Cardiovascular Exam: RRR, +S1, +S2 - GI/Abdominal Exam GI & Abdominal Exam: Soft. absent: Tenderness - Rectal Exam Rectal Exam: Deferred - Extremities Exam Extremities Exam: absent: Calf Tenderness, Pedal Edema - Back Exam Back Exam: absent: CVA tenderness (L), CVA tenderness (R) - Neurological Exam Neurological Exam: Alert, Awake, CN II-XII Intact, Oriented x3 - Psychiatric Exam Psychiatric exam: Normal Mood Assessment and Plan (1) Lung nodule Status: Acute (2) Bronchitis Status: Acute (3) Transaminitis Status: Acute (4) COPD exacerbation Status: Acute - Assessment and Plan (Free Text) Assessment: RESP STATUS COMFORTABLE AT REST. CONT NEB BD., IV STEROIDS, MONITOR O2 SAT. CXR REVIEWED. HOLD AB, ?ALLERGIC RXN. ID EVAL. DISCUSSED WITH STAFF AT LENGTH.
[2018-08-05 00:13] VITALS: RESP 20
[2018-08-05] MEDS: Albuterol-Ipratrop 3 mg / 0.5 (3 ml) UD IH SCH ×4 (01:18→19:10)
[2018-08-05] MEDS: MethylPREDNISolone 40 mg Vial IVP SCH ×3 (06:08→21:28)
[2018-08-05] MEDS: Fluticasone-Vilanterol 100/25mcg Diskus INH SCH (07:20)
[2018-08-05] MEDS: Enoxaparin 40 mg Syringe SC SCH (09:56)
[2018-08-05] MEDS: Pantoprazole 40 mg EC Tab PO SCH (09:56)
[2018-08-05] MEDS: Moxifloxacin IV 400mg/250ml NS 400 MG/250 ML BAG IVPB SCH (13:43)
--- NOTE | 2018-08-05 14:25 | CP.PCM.PN ---
Subjective - Date & Time of Evaluation Date of Evaluation: 08/05/18 Time of Evaluation: 07:45 - Subjective Subjective: clinically same Objective - Vital Signs/Intake and Output Vital Signs (last 24 hours): Temp Pulse Resp BP Pulse Ox 98.8 F 106 H 20 144/90 98 08/05/18 08:14 08/05/18 08:14 08/05/18 08:14 08/05/18 08:14 08/05/18 08:14 Intake and Output: 08/05/18 08/05/18 06:59 18:59 Intake Total 300 Output Total 800 Balance -500 - Medications Medications: Current Medications Albuterol/Ipratropium (Duoneb 3 Mg/0.5 Mg (3 Ml) Ud) 3 ml IH RQ6 [facility] Last Admin: 08/05/18 07:20 Dose: 3 ml Diphenhydramine HCl (Benadryl) 25 mg IVP Q8 PRN PRN Reason: Allergy symptoms Last Admin: 08/04/18 13:00 Dose: 25 mg Enoxaparin Sodium (Lovenox) 40 mg SC DAILY [facility] Last Admin: 08/05/18 09:56 Dose: 40 mg Fluticasone/Vilanterol (Breo Ellipta 100-25 Mcg Inh) 1 puff INH RQD [facility] Last Admin: 08/05/18 07:20 Dose: 1 puff Moxifloxacin HCl (Avelox Iv 400mg/250ml Ns) 400 mg in 250 mls @ 167 mls/hr IVPB Q24H [facility]; Protocol Last Admin: 08/05/18 13:43 Dose: 167 mls/hr Methylprednisolone (Solu-Medrol) 40 mg IVP Q12 [facility] Last Admin: 08/05/18 09:57 Dose: 40 mg Pantoprazole Sodium (Protonix Ec Tab) 40 mg PO DAILY [facility] Last Admin: 08/05/18 09:56 Dose: 40 mg - Labs Labs: 08/03/18 07:23 08/03/18 07:23 - Constitutional Appears: Well - Head Exam Head Exam: ATRAUMATIC, NORMAL INSPECTION, NORMOCEPHALIC - Eye Exam Eye Exam: EOMI, Normal appearance, PERRL Pupil Exam: NORMAL ACCOMODATION, PERRL - ENT Exam ENT Exam: Mucous Membranes Moist, Normal Exam - Neck Exam Neck Exam: Full ROM, Normal Inspection. absent: Lymphadenopathy - Respiratory Exam Respiratory Exam: Decreased Breath Sounds - Cardiovascular Exam Cardiovascular Exam: REGULAR RHYTHM, +S1, +S2 - GI/Abdominal Exam GI & Abdominal Exam: Soft, Diminished Bowel Sounds - Rectal Exam Rectal Exam: Deferred
--- NOTE | 2018-08-05 15:15 | CP.PCM.PN ---
Subjective - Date & Time of Evaluation Date of Evaluation: 08/05/18 Time of Evaluation: 15:13 - Subjective Subjective: PT ALERT, FEELS BETTER. LESS COUGH. NO MORE RASH ROS; OTHERWISE NEG. Objective - Vital Signs/Intake and Output Vital Signs (last 24 hours): Temp Pulse Resp BP Pulse Ox 98.8 F 106 H 20 144/90 98 08/05/18 08:14 08/05/18 08:14 08/05/18 08:14 08/05/18 08:14 08/05/18 08:14 Intake and Output: 08/05/18 08/05/18 06:59 18:59 Intake Total 300 Output Total 800 Balance -500 - Medications Medications: Current Medications Albuterol/Ipratropium (Duoneb 3 Mg/0.5 Mg (3 Ml) Ud) 3 ml IH RQ6 [facility] Last Admin: 08/05/18 07:20 Dose: 3 ml Diphenhydramine HCl (Benadryl) 25 mg IVP Q8 PRN PRN Reason: Allergy symptoms Last Admin: 08/04/18 13:00 Dose: 25 mg Enoxaparin Sodium (Lovenox) 40 mg SC DAILY [facility] Last Admin: 08/05/18 09:56 Dose: 40 mg Fluticasone/Vilanterol (Breo Ellipta 100-25 Mcg Inh) 1 puff INH RQD [facility] Last Admin: 08/05/18 07:20 Dose: 1 puff Moxifloxacin HCl (Avelox Iv 400mg/250ml Ns) 400 mg in 250 mls @ 167 mls/hr IVPB Q24H [facility]; Protocol Last Admin: 08/05/18 13:43 Dose: 167 mls/hr Methylprednisolone (Solu-Medrol) 40 mg IVP Q12 [facility] Last Admin: 08/05/18 09:57 Dose: 40 mg Pantoprazole Sodium (Protonix Ec Tab) 40 mg PO DAILY [facility] Last Admin: 08/05/18 09:56 Dose: 40 mg - Labs Labs: 08/03/18 07:23 08/03/18 07:23 - Constitutional Appears: No Acute Distress - Head Exam Head Exam: ATRAUMATIC, NORMOCEPHALIC - Eye Exam Eye Exam: EOMI, Normal appearance - ENT Exam ENT Exam: Mucous Membranes Moist - Neck Exam Neck Exam: Normal Inspection - Respiratory Exam Respiratory Exam: absent: Wheezes, Respiratory Distress - Cardiovascular Exam Cardiovascular Exam: RRR, +S1, +S2 - GI/Abdominal Exam GI & Abdominal Exam: Soft. absent: Tenderness - Rectal Exam Rectal Exam: Deferred - Extremities Exam Extremities Exam: absent: Calf Tenderness, Pedal Edema - Back Exam Back Exam: absent: CVA tenderness (L), CVA tenderness (R) - Neurological Exam Neurological Exam: Alert, Awake, CN II-XII Intact, Oriented x3 - Psychiatric Exam Psychiatric exam: Normal Mood - Skin Skin Exam: absent: Rash Assessment and Plan (1) Lung nodule Status: Acute (2) Bronchitis Status: Acute (3) Transaminitis Status: Acute (4) COPD exacerbation Status: Acute - Assessment and Plan (Free Text) Assessment: RESP STATUS IMPROVING., CONT NEB BD., STEROID TAPER., AFEBRILE ON AVELOX NOW. CXR REVIEWED. CHECK CT CHEST. DISCUSSED WITH STAFF.
--- NOTE | 2018-08-05 17:44 | CT ---
Date of service: 08/05/2018 PROCEDURE: CT Chest without contrast HISTORY: NODULE COMPARISON: Comparison made with prior CT scan of the chest dated 04/13/2018. Comparison also made with chest radiograph dated 08/02/2018.. TECHNIQUE: Contiguous axial images were obtained through the chest without intravenous contrast enhancement. Sagittal and coronal reconstructions were performed. Radiation dose: Total exam DLP = 401.83 mGy-cm. This CT exam was performed using one or more of the following dose reduction techniques: Automated exposure control, adjustment of the mA and/or kV according to patient size, and/or use of iterative reconstruction technique. FINDINGS: LUNGS: No acute consolidation. Minor right apical pleural thickening and adjacent parenchymal scarring. Minimal left apical pleural thickening... Small calcified granuloma right inferior lower lobe bordering the lateral margin of the major fissure.. Minimal scarring changes seen both lung bases right greater than left. MEDIASTINUM: Heart size is within range of normal. Unremarkable thoracic aorta. No aneurysm. Ascending thoracic aorta measures approximately 3.2 cm and descending thoracic aorta measures approximately 2.6 cm. Minor aortic atherosclerotic calcification. Main pulmonary artery unremarkable measuring approximately 2.8 cm.. No vascular congestion. Few small nonspecific mediastinal lymph nodes are present. Evaluation for hilar adenopathy is limited due to lack of the contrast material. Trachea midline and patent with no large central endoluminal lesions. PLEURA: No pleural fluid. No pneumothorax. BONES: Minor multilevel degenerative spondylosis of the thoracic spine. There are no acute compression fractures no retropulsed fragments UPPER ABDOMEN: Gallbladder is incompletely distended which in part accounts for thick-walled appearance. OTHER FINDINGS: None. IMPRESSION: Small calcified granuloma right upper lobe. Minor right apical pleural thickening and adjacent parenchymal scarring. Minimal left apical pleural thickening. Minor scarring changes both lung bases. There is a small hiatal hernia with slight wall thickening of distal esophagus likely due to protrusion of gastric mucosa. Esophagitis not excluded. Clinical correlation recommended to determine whether follow-up studies such as endoscopy may be warranted
[2018-08-06] MEDS: Albuterol-Ipratrop 3 mg / 0.5 (3 ml) UD IH SCH ×4 (01:35→19:28)
[2018-08-06] MEDS: Fluticasone-Vilanterol 100/25mcg Diskus INH SCH (08:39)
[2018-08-06] MEDS: MethylPREDNISolone 40 mg Vial IVP SCH ×2 (09:22→21:31)
[2018-08-06] MEDS: Pantoprazole 40 mg EC Tab PO SCH (09:22)
[2018-08-06] MEDS: Enoxaparin 40 mg Syringe SC SCH (09:22)
--- NOTE | 2018-08-06 12:04 | CP.PCM.PN ---
Subjective - Date & Time of Evaluation Date of Evaluation: 08/06/18 Time of Evaluation: 12:03 - Subjective Subjective: PT ALERT, FEELS MUCH BETTER., OCC COUGH. ROS; OTHERWISE NEG Objective - Vital Signs/Intake and Output Vital Signs (last 24 hours): Temp Pulse Resp BP Pulse Ox 98.1 F 91 H 20 138/88 97 08/06/18 08:00 08/06/18 08:00 08/06/18 08:00 08/06/18 08:20 08/06/18 08:00 Intake and Output: 08/06/18 08/06/18 06:59 18:59 Intake Total 900 Balance 900 - Medications Medications: Current Medications Albuterol/Ipratropium (Duoneb 3 Mg/0.5 Mg (3 Ml) Ud) 3 ml IH RQ6 [facility] Last Admin: 08/06/18 08:39 Dose: 3 ml Diphenhydramine HCl (Benadryl) 25 mg IVP Q8 PRN PRN Reason: Allergy symptoms Last Admin: 08/04/18 13:00 Dose: 25 mg Enoxaparin Sodium (Lovenox) 40 mg SC DAILY [facility] Last Admin: 08/06/18 09:22 Dose: 40 mg Fluticasone/Vilanterol (Breo Ellipta 100-25 Mcg Inh) 1 puff INH RQD [facility] Last Admin: 08/06/18 08:39 Dose: 1 puff Moxifloxacin HCl (Avelox Iv 400mg/250ml Ns) 400 mg in 250 mls @ 167 mls/hr IVPB Q24H [facility]; Protocol Last Admin: 08/05/18 13:43 Dose: 167 mls/hr Methylprednisolone (Solu-Medrol) 40 mg IVP Q12 [facility] Last Admin: 08/06/18 09:22 Dose: 40 mg Pantoprazole Sodium (Protonix Ec Tab) 40 mg PO DAILY [facility] Last Admin: 08/06/18 09:22 Dose: 40 mg - Labs Labs: 08/03/18 07:23 08/03/18 07:23 - Constitutional Appears: No Acute Distress - Head Exam Head Exam: ATRAUMATIC, NORMOCEPHALIC - Eye Exam Eye Exam: EOMI, Normal appearance - ENT Exam ENT Exam: Mucous Membranes Moist - Neck Exam Neck Exam: Normal Inspection - Respiratory Exam Respiratory Exam: absent: Accessory Muscle Use, Wheezes, Respiratory Distress - Cardiovascular Exam Cardiovascular Exam: RRR, +S1, +S2 - GI/Abdominal Exam GI & Abdominal Exam: Soft. absent: Tenderness - Rectal Exam Rectal Exam: Deferred - Extremities Exam Extremities Exam: absent: Calf Tenderness, Pedal Edema - Back Exam Back Exam: absent: CVA tenderness (L), CVA tenderness (R) - Neurological Exam Neurological Exam: Alert, Awake, CN II-XII Intact, Oriented x3 - Psychiatric Exam Psychiatric exam: absent: Normal Mood - Skin Skin Exam: absent: Rash Assessment and Plan (1) Lung nodule Status: Acute (2) Bronchitis Status: Acute (3) Transaminitis Status: Acute (4) COPD exacerbation Status: Acute - Assessment and Plan (Free Text) Assessment: RSP STATUSIMPROVING., AFEBRILE ON AB. CONT NEB BD., CT CHEST REVIEWED, +CALCIFIED GRANULOMA NOTED. INCREASE OOB. DISCUSSED WITH STAFF.
[2018-08-06] MEDS: Moxifloxacin IV 400mg/250ml NS 400 MG/250 ML BAG IVPB SCH (14:19)
--- NOTE | 2018-08-06 17:43 | CP.PCM.PN ---
Subjective - Date & Time of Evaluation Date of Evaluation: 08/06/18 Time of Evaluation: 07:30 - Subjective Subjective: clinically same Objective - Vital Signs/Intake and Output Vital Signs (last 24 hours): Temp Pulse Resp BP Pulse Ox 98 F 99 H 20 143/89 95 08/06/18 16:00 08/06/18 16:00 08/06/18 16:00 08/06/18 16:00 08/06/18 16:00 Intake and Output: 08/06/18 08/06/18 06:59 18:59 Intake Total 900 610 Balance 900 610 - Medications Medications: Current Medications Albuterol/Ipratropium (Duoneb 3 Mg/0.5 Mg (3 Ml) Ud) 3 ml IH RQ6 [facility] Last Admin: 08/06/18 14:36 Dose: 3 ml Diphenhydramine HCl (Benadryl) 25 mg IVP Q8 PRN PRN Reason: Allergy symptoms Last Admin: 08/04/18 13:00 Dose: 25 mg Enoxaparin Sodium (Lovenox) [address] [facility] Last Admin: 08/06/18 09:22 Dose: 40 mg Fluticasone/Vilanterol (Breo Ellipta 100-25 Mcg Inh) 1 puff INH RQD [facility] Last Admin: 08/06/18 08:39 Dose: 1 puff Moxifloxacin HCl (Avelox Iv 400mg/250ml Ns) 400 mg in 250 mls @ 167 mls/hr IVPB Q24H [facility]; Protocol Last Admin: 08/06/18 14:19 Dose: 167 mls/hr Methylprednisolone (Solu-Medrol) 40 mg IVP Q12 [facility] Last Admin: 08/06/18 09:22 Dose: 40 mg Pantoprazole Sodium (Protonix Ec Tab) 40 mg PO DAILY [facility] Last Admin: 08/06/18 09:22 Dose: 40 mg - Labs Labs: 08/03/18 07:23 08/03/18 07:23 - Constitutional Appears: Well - Head Exam Head Exam: ATRAUMATIC, NORMAL INSPECTION, NORMOCEPHALIC - Eye Exam Eye Exam: EOMI, Normal appearance, PERRL Pupil Exam: NORMAL ACCOMODATION, PERRL - ENT Exam ENT Exam: Mucous Membranes Moist, Normal Exam - Neck Exam Neck Exam: Full ROM, Normal Inspection. absent: Lymphadenopathy - Respiratory Exam Respiratory Exam: Decreased Breath Sounds - Cardiovascular Exam Cardiovascular Exam: REGULAR RHYTHM, +S1, +S2 - GI/Abdominal Exam GI & Abdominal Exam: Soft, Diminished Bowel Sounds - Rectal Exam Rectal Exam: Deferred
[2018-08-07] MEDS: Albuterol-Ipratrop 3 mg / 0.5 (3 ml) UD IH SCH ×3 (01:17→13:10)
[2018-08-07] MEDS: Fluticasone-Vilanterol 100/25mcg Diskus INH SCH (07:40)
[2018-08-07 08:15] VITALS: BP 139/85; PULSE 115; TEMP 98.7; O2SAT 97
[2018-08-07] MEDS: Enoxaparin 40 mg Syringe SC SCH (10:13)
[2018-08-07] MEDS: MethylPREDNISolone 40 mg Vial IVP SCH (10:19)
[2018-08-07] MEDS: Pantoprazole 40 mg EC Tab PO SCH (10:22)
--- NOTE | 2018-08-07 12:13 | CP.PCM.PN ---
Subjective - Date & Time of Evaluation Date of Evaluation: 08/07/18 Time of Evaluation: 07:30 - Subjective Subjective: clinically same Objective - Vital Signs/Intake and Output Vital Signs (last 24 hours): Temp Pulse Resp BP Pulse Ox 98.7 F 115 H 20 139/85 97 08/07/18 08:13 08/07/18 08:13 08/07/18 08:13 08/07/18 08:13 08/07/18 08:13 Intake and Output: 08/07/18 08/07/18 06:59 18:59 Intake Total 650 350 Balance 650 350 - Medications Medications: Current Medications Albuterol/Ipratropium (Duoneb 3 Mg/0.5 Mg (3 Ml) Ud) 3 ml IH RQ6 [facility] Last Admin: 08/07/18 07:40 Dose: 3 ml Diphenhydramine HCl (Benadryl) 25 mg IVP Q8 PRN PRN Reason: Allergy symptoms Last Admin: 08/04/18 13:00 Dose: 25 mg Enoxaparin Sodium (Lovenox) 40 mg SC DAILY [facility] Last Admin: 08/07/18 10:13 Dose: 40 mg Fluticasone/Vilanterol (Breo Ellipta 100-25 Mcg Inh) 1 puff INH RQD [facility] Last Admin: 08/07/18 07:40 Dose: 1 puff Moxifloxacin HCl (Avelox Iv 400mg/250ml Ns) 400 mg in 250 mls @ 167 mls/hr IVPB Q24H [facility]; Protocol Last Admin: 08/06/18 14:19 Dose: 167 mls/hr Methylprednisolone (Solu-Medrol) 40 mg IVP Q12 [facility] Last Admin: 08/07/18 10:19 Dose: 40 mg Pantoprazole Sodium (Protonix Ec Tab) 40 mg PO DAILY [facility] Last Admin: 08/07/18 10:22 Dose: 40 mg - Labs Labs: 08/03/18 07:23 08/03/18 07:23 - Constitutional Appears: Well - Head Exam Head Exam: ATRAUMATIC, NORMAL INSPECTION, NORMOCEPHALIC - Eye Exam Eye Exam: EOMI, Normal appearance, PERRL Pupil Exam: NORMAL ACCOMODATION, PERRL - ENT Exam ENT Exam: Mucous Membranes Moist, Normal Exam - Neck Exam Neck Exam: Full ROM, Normal Inspection. absent: Lymphadenopathy - Respiratory Exam Respiratory Exam: Decreased Breath Sounds - Cardiovascular Exam Cardiovascular Exam: REGULAR RHYTHM, +S1, +S2 - GI/Abdominal Exam GI & Abdominal Exam: Soft, Diminished Bowel Sounds - Rectal Exam Rectal Exam: Deferred
--- NOTE | 2018-08-07 13:49 | CP.PCM.PN ---
Subjective - Date & Time of Evaluation Date of Evaluation: 08/07/18 Time of Evaluation: 13:47 - Subjective Subjective: PT ALERT, FEELS OK. NO COUGH. ROS ; OTHERWISE NEG Objective - Vital Signs/Intake and Output Vital Signs (last 24 hours): Temp Pulse Resp BP Pulse Ox 98.7 F 115 H 20 139/85 97 08/07/18 08:13 08/07/18 08:13 08/07/18 08:13 08/07/18 08:13 08/07/18 08:13 Intake and Output: 08/07/18 08/07/18 06:59 18:59 Intake Total 650 350 Balance 650 350 - Medications Medications: Current Medications Albuterol/Ipratropium (Duoneb 3 Mg/0.5 Mg (3 Ml) Ud) 3 ml IH RQ6 [facility] Last Admin: 08/07/18 07:40 Dose: 3 ml Diphenhydramine HCl (Benadryl) 25 mg IVP Q8 PRN PRN Reason: Allergy symptoms Last Admin: 08/04/18 13:00 Dose: 25 mg Enoxaparin Sodium (Lovenox) 40 mg SC DAILY [facility] Last Admin: 08/07/18 10:13 Dose: 40 mg Fluticasone/Vilanterol (Breo Ellipta 100-25 Mcg Inh) 1 puff INH RQD [facility] Last Admin: 08/07/18 07:40 Dose: 1 puff Moxifloxacin HCl (Avelox Iv 400mg/250ml Ns) 400 mg in 250 mls @ 167 mls/hr IVPB Q24H [facility]; Protocol Last Admin: 08/06/18 14:19 Dose: 167 mls/hr Methylprednisolone (Solu-Medrol) 40 mg IVP Q12 [facility] Last Admin: 08/07/18 10:19 Dose: 40 mg Pantoprazole Sodium (Protonix Ec Tab) 40 mg PO DAILY [facility] Last Admin: 08/07/18 10:22 Dose: 40 mg - Labs Labs: 08/03/18 07:23 08/03/18 07:23 - Constitutional Appears: No Acute Distress - Head Exam Head Exam: ATRAUMATIC, NORMOCEPHALIC - Eye Exam Eye Exam: EOMI, Normal appearance - ENT Exam ENT Exam: Mucous Membranes Moist - Neck Exam Neck Exam: Normal Inspection - Respiratory Exam Respiratory Exam: Decreased Breath Sounds. absent: Rhonchi, Wheezes, Respira tory Distress - Cardiovascular Exam Cardiovascular Exam: RRR, +S1, +S2 - GI/Abdominal Exam GI & Abdominal Exam: Soft. absent: Tenderness - Rectal Exam Rectal Exam: Deferred - Extremities Exam Extremities Exam: absent: Calf Tenderness, Pedal Edema - Back Exam Back Exam: absent: CVA tenderness (L), CVA tenderness (R) - Neurological Exam Neurological Exam: Alert, Awake, CN II-XII Intact, Oriented x3 - Psychiatric Exam Psychiatric exam: Normal Mood - Skin Skin Exam: absent: Rash Assessment and Plan (1) Lung nodule Status: Acute (2) Bronchitis Status: Acute (3) Transaminitis Status: Acute (4) COPD exacerbation Status: Acute - Assessment and Plan (Free Text) Assessment: RESP STATUS COMFORTABLE., AFEBRILE ON AB. CONT NEB BD., PULM TOILET., CXR REVIEWED. INCREASE OOB .DISCUSSED WITH STAFF.
[2018-08-07] MEDS: Moxifloxacin IV 400mg/250ml NS 400 MG/250 ML BAG IVPB SCH (13:52)
== END 2018-08-07 16:35 | disposition home or self-care (01) | DRG 192 ==
LOC: C.ER 21:13 → C.9E 23:09 → C.3T 08-03 00:17 → OBSVTOIN 08-06 03:05
PROVIDERS: ADMIT Internal Medicine Nephrology; ATTEND Internal Medicine Nephrology
DX: J44.0 Chronic obstructive pulmonary disease with (acute) lower respiratory infection (principal); J44.1 Chronic obstructive pulmonary disease with (acute) exacerbation; J20.9 Acute bronchitis, unspecified; I10 Essential (primary) hypertension; Z87.891 Personal history of nicotine dependence

== ENCOUNTER 2018-09-24 23:28 | Inpatient (IN) | payer MEDICARE, MEDICAID ==
[2018-09-24 23:29] VITALS: BMI 25.0
[2018-09-24] MEDS ORDERED: Albuterol-Ipratrop 3 mg / 0.5 (3 ml) UD ONE (23:39)
[2018-09-24] MEDS ORDERED: MethylPREDNISolone 40 mg Vial IVP STA (23:52)
[2018-09-24] MEDS ORDERED: Magnesium Sulfate 1 gm in D5W 1 GM/100 ML BAG IVPB ONE (23:52)
--- NOTE | 2018-09-24 23:53 | C.PDOC ---
History Of Present Illness 57 year old male with a Hx of asthma with no intubations but previous admission presents with SOB and asthma exacerbation. Patient states this feels like his previous asthma exacerbations. Denies fever, chills, night sweats, chest pain, abdominal pain, leg swelling, or other complaints. Denies any drug use or falls. No leg swelling or history of blood clots. Time Seen by Provider: 09/24/18 23:45 Chief Complaint (Nursing): Respiratory Distress History Per: Patient History/Exam Limitations: no limitations Onset/Duration Of Symptoms: Hrs Current Symptoms Are (Timing): Still Present Current Respiratory Medications: See Home Med List Recent travel outside of the [place]: No Past Medical History Reviewed: Historical Data, Nursing Documentation, Vital Signs Vital Signs: Last Vital Signs Temp 97.6 F 09/24/18 23:41 Pulse 132 H 09/24/18 23:41 Resp 30 H 09/24/18 23:41 BP 115/64 09/24/18 23:41 Pulse Ox 90 L 09/24/18 23:41 - Medical History PMH: Asthma, COPD, HTN Denies: Chronic Kidney Disease - [facility] Procedures INFLUENZA VACCINATION (09/13/14) VACCINATION NEC (09/13/14) Family History: States: Unknown Family Hx - Social History Hx Tobacco Use: Yes Hx Alcohol Use: Yes (drinks socially) Hx Substance Use: No - Immunization History Hx Tetanus Toxoid Vaccination: No Hx Influenza Vaccination: No Hx Pneumococcal Vaccination: No Review Of Systems Except As Marked, All Systems Reviewed And Found Negative. Constitutional: Negative for: Fever, Chills Eyes: Negative for: Pain ENT: Negative for: Ear Pain Cardiovascular: Negative for: Chest Pain Respiratory: Positive for: Shortness of Breath, Other (Asthma) Gastrointestinal: Negative for: Nausea, Vomiting Genitourinary: Negative for: Dysuria, Frequency Musculoskeletal: Negative for: Neck Pain Skin: Negative for: Rash Neurological: Negative for: Numbness Physical Exam - Physical Exam Appears: Non-toxic, Other Skin: Normal Color, Warm, Dry Head: Atraumatic, Normacephalic Eye(s): bilateral: Normal Inspection Nose: Normal Oral Mucosa: Moist Throat: Normal Neck: Normal, Supple Chest: Symmetrical, No Tenderness Cardiovascular: Other (tachycardic) Respiratory: No Rales, No Rhonchi, Wheezing (Throughout), Other (Speaking in 3-4 word sentences, otherwise protecting airway) Gastrointestinal/Abdominal: Soft, No Tenderness Neurological/Psych: Oriented x3, Normal Speech ED Course And Treatment - Laboratory Results Result Diagrams: 09/25/18 00:20 09/25/18 00:20 ECG: Interpreted By Me, Viewed By Me ECG Rhythm: Sinus Tachycardia ECG Interpretation: Normal Interpretation Of ECG: No STEMI Rate From EC O2 Sat by Pulse Oximetry: 90 (Room air) Medical Decision Making Medical Decision Making: Impression: Asthma 57 yr old male w/ hx of asthma p/w sob, c/w asthma exacerbation. No fever, chills or night sweats. No rashes noted. Tachy on eval. ?2/2 albuterol rx at home. Will rx with steroids, duonebs and mag. Mag given, still with wheezes and tachy. ICU called Appreciate consult w/ Dr. Paula Norman: TSH, Urine tox and fluids ordered by ICU TSH, Urine tox unremarkable. 2L given and remains tachy. Pt remains afebrile. Appreciate reconsult w/ Dr. Nancy Norman: accepted to ICU Appreciate consult w/ Stanley Morgan- to admit to his service Disposition - Disposition Disposition: HOSPITALIZED Disposition Time: 05:00 Condition: SERIOUS - Clinical Impression Clinical Impression: Asthma, Tachycardia - Scribe Statement The provider has reviewed the documentation as recorded by the Scribsarahi Kumar All medical record entries made by the Scribe were at my direction and personally dictated by me. I have reviewed the chart and agree that the record accurately reflects my personal performance of the history, physical exam, medical decision making, and the department course for this patient. I have also personally directed, reviewed, and agree with the discharge instructions and disposition.
[2018-09-25] MEDS ORDERED: Albuterol-Ipratrop 3 mg / 0.5 (3 ml) UD INH SCH
[2018-09-25] MEDS ORDERED: Magnesium Sulfate 1 gm in D5W 1 GM/100 ML BAG IVPB ONE ×3 (00:07→01:04)
[2018-09-25] MEDS ORDERED: Albuterol-Ipratrop 3 mg / 0.5 (3 ml) UD ONE (00:11)
[2018-09-25] MEDS ORDERED: Albuterol-Ipratrop 3 mg / 0.5 (3 ml) UD INH STA ×3 (00:20→00:30)
[2018-09-25 00:23] LABS: BASO # 0.1 K/uL (0.0-0.2); BASO % 1.2 % (0.0-2.0); EOS % 0.4 % (0.0-4.0); HEMOGLOBIN 13.9 g/dL (12.0-18.0); LYMPH # 2.9 K/uL (1.0-4.3); LYMPH % 28.7 % (20.0-40.0); MEAN CELL VOLUME 102.9 fL (80.0-94.0); MEAN CORPUSCULAR HEMOGLOBIN 34.9 pg (27.0-31.0); MEAN CORPUSCULAR HGB CONC 33.9 g/dL (33.0-37.0); MEAN PLATELET VOLUME 7.4 fL (7.2-11.7); MONO # 0.2 K/uL (0.0-0.8); MONO % 2.5 % (0.0-10.0); NEUT # 6.8 K/uL (1.8-7.0); NEUT % 67.2 % (50.0-75.0); RBC 3.99 Mil/uL (4.40-5.90); WHITE BLOOD COUNT 10.1 K/uL (4.8-10.8)
[2018-09-25 00:42] LABS: ALB/GLOB RATIO 1.4 (1.0-2.1); ALT/SGPT 151 U/L (21-72); AST/SGOT 103 U/L (17-59); BLOOD UREA NITROGEN 12 mg/dL (9-20); GFR NON-AFRICAN AMERICAN > 60
[2018-09-25] MEDS ORDERED: Dexamethasone 4 mg/1 ml IVP STA (01:15)
[2018-09-25] MEDS ORDERED: Lactated Ringer's 1,000 ML IV ONE ×2 (01:16)
--- NOTE | 2018-09-25 01:41 | CP.PCM.CON ---
History of Present Illness - History of Present Illness History of Present Illness: 57 y/o male with pmx of reactive airway disease presents to [facility] with c/o difficulty breathing. Patient has history of asthma. Patient notes he was feeling normal, was watching a basketball game and then had sudden onset of SOB associated with wheezing. Patient denies taking any illicit drugs, denies any chest pain, denies any abdominal pain. Pmx: asthma Psug hx: non-contributary Allergies: azitho SH: deneis smoking, deneis any abdominal pain Review of Systems - Review of Systems All systems: reviewed and no additional remarkable complaints except Past Patient History - Infectious Disease Hx of Infectious Diseases: None - Tetanus Immunizations Tetanus Immunization: Unknown - Past Medical History & Family History Past Medical History?: Yes - Past Social History Smoking Status: Former Smoker - CARDIAC Hx Hypertension: Yes - PULMONARY Hx Asthma: Yes Hx Chronic Obstructive Pulmonary Disease (COPD): Yes - NEUROLOGICAL Hx Neurological Disorder: No - HEENT Hx HEENT Problems: No - RENAL Hx Chronic Kidney Disease: No - ENDOCRINE/METABOLIC Hx Endocrine Disorders: No - HEMATOLOGICAL/ONCOLOGICAL Hx Blood Disorders: No - INTEGUMENTARY Hx Dermatological Problems: No - MUSCULOSKELETAL/RHEUMATOLOGICAL Hx Falls: No - GASTROINTESTINAL Hx Gastrointestinal Disorders: No - GENITOURINARY/GYNECOLOGICAL Hx Genitourinary Disorders: No - PSYCHIATRIC Hx Substance Use: No - SURGICAL HISTORY Hx Surgeries: No - ANESTHESIA Hx Anesthesia: No Hx Anesthesia Reactions: No Hx Malignant Hyperthermia: No Meds Allergies/Adverse Reactions: Allergies Allergy/AdvReac Type Severity Reaction Status Date / Time azithromycin [From Zithromax] Allergy RASH Verified 08/07/18 08:07 - Medications Medications: Current Medications Lactated Ringer's (Lactated Ringer's) 1,000 mls @ 1,000 mls/hr IV .Q1H ONE Stop: 09/25/18 02:15 Lactated Ringer's (Lactated Ringer's) 1,000 mls @ 1,000 mls/hr IV .Q1H ONE Stop: 09/25/18 02:15 Ceftriaxone Sodium 1 gm/ (Sodium Chloride) 100 mls @ 100 mls/hr IVPB DAILY LATOYA; Protocol Montelukast Sodium (Singulair) 10 mg PO HS LATOYA Physical Exam - Head Exam Head Exam: ATRAUMATIC, NORMAL INSPECTION, NORMOCEPHALIC - Eye Exam Eye Exam: EOMI, Normal appearance - ENT Exam ENT Exam: Mucous Membranes Moist - Neck Exam Neck exam: Positive for: Normal Inspection - Respiratory Exam Respiratory Exam: Clear to Auscultation Bilateral, NORMAL BREATHING PATTERN. absent: Chest Wall Tenderness, Rales, Wheezes, Respiratory Distress, Stridor - Cardiovascular Exam Cardiovascular Exam: Tachycardia, +S1, +S2 - GI/Abdominal Exam GI & Abdominal Exam: Normal Bowel Sounds, Soft. absent: Guarding, Rebound, Rigid, Tenderness - Extremities Exam Extremities exam: Positive for: normal inspection Results - Vital Signs Recent Vital Signs: Last Vital Signs Temp 97.6 F 09/24/18 23:41 Pulse 132 H 09/24/18 23:41 Resp 22 09/25/18 00:59 BP 115/64 09/24/18 23:41 Pulse Ox 92 L 09/25/18 00:59 - Labs Result Diagrams: 09/25/18 00:20 09/25/18 00:20 Labs: Laboratory Results - last 24 hr 09/25/18 09/25/18 00:20 00:20 WBC 10.1 RBC 3.99 L Hgb 13.9 Hct 41.0 MCV 102.9 H D MCH 34.9 H MCHC 33.9 RDW 13.0 Plt Count 331 MPV 7.4 Neut % (Auto) 67.2 Lymph % (Auto) 28.7 [place] % (Auto) 2.5 Eos % (Auto) 0.4 Baso % (Auto) 1.2 Neut # (Auto) 6.8 Lymph # (Auto) 2.9 [place] # (Auto) 0.2 Eos # (Auto) 0.0 Baso # (Auto) 0.1 Sodium 134 Potassium 3.3 L Chloride 95 L Carbon Dioxide 27 Anion Gap 15 BUN 12 Creatinine 1.0 Est GFR ( Amer) > 60 Est GFR (Non-Af Amer) > 60 Random Glucose 239 H D Calcium 9.0 Magnesium 1.6 Total Bilirubin 0.7 AST 103 H ALT 151 H D Alkaline Phosphatase 124 Total Protein 6.8 Albumin 4.0 Globulin 2.9 Albumin/Globulin Ratio 1.4 Assessment & Plan - Assessment and Plan (Free Text) Assessment: Sinus tachy: EKG reveals normal sinu tachy, patient utox neg, obtain echo and r/o PE, tsh normal, utox neg, obtain echo and trop -asthma: continue solumedrol and bronchodilators + singulair -fevers: influenxa neg, serial lactic, ceftriaxone, panculture -dvt ppx lovenox -pud ppx pepcid Patient will benefit from ICU level care as patient's HR near 150s (sinus). Due to extreme tachycardia, patient will benefit from ICU level care. d/w Er physician - Date & Time Date: 09/25/18 Time: 03:07
[2018-09-25] MEDS ORDERED: Lactated Ringer's 2,000 ML ONE (01:47)
[2018-09-25 02:13] LABS: B-TYPE NATRIURETIC PEPTIDE 51.5 pg/mL (0-900)
[2018-09-25 02:41] LABS: BARBITURATES, UR NEGATIVE (NEGATIVE); BENZODIAZEPINES, UR NEGATIVE (NEGATIVE); OPIATES, UR NEGATIVE (NEGATIVE); PHENCYCLIDINE, UR NEGATIVE (NEGATIVE)
[2018-09-25] MEDS ORDERED: Sodium Chloride 0.9% 1,000 ML IV ONE ×2 (02:59→03:00)
[2018-09-25] MEDS ORDERED: Potassium Phosphate 15 MMOLE in Sodium Chloride 0.9% 250 ML IV ONE (03:00)
[2018-09-25] MEDS ORDERED: cefTRIAXone 2 GM in Sodium Chloride 0.9% 100 ML IVPB ONE (03:01)
[2018-09-25 03:11] LABS: URINE BILIRUBIN NEGATIVE (NEGATIVE); URINE BLOOD NEGATIVE (NEGATIVE); URINE CLARITY Clear (Clear); URINE COLOR Straw (YELLOW); URINE GLUCOSE (UA) 3+ mg/dL (Normal); URINE LEUKOCYTE ESTERASE NEG Leu/uL (Negative); URINE PROTEIN NEGATIVE (NEGATIVE); URINE UROBILINOGEN NORMAL mg/dL (0.2-1.0)
[2018-09-25] MEDS ORDERED: MethylPREDNISolone 40 mg Vial IVP SCH (04:00)
[2018-09-25 04:11] LABS: CK-MB 0.31 ng/mL (0.0-3.38)
[2018-09-25] MEDS ORDERED: Iodixanol 320 MG/ML 100 ML BOTTLE IV ONE ×2 (04:49→08:24)
[2018-09-25] MEDS ORDERED: Potassium Phosphate 15 MMOLE in Dextrose 5% In Water 250 ML IVPB ONE (04:58)
[2018-09-25] MEDS: MethylPREDNISolone 40 mg Vial IVP SCH ×3 (06:55→22:40)
[2018-09-25] MEDS: Albuterol-Ipratrop 3 mg / 0.5 (3 ml) UD INH SCH ×2 (07:59→13:24)
--- NOTE | 2018-09-25 08:02 | RAD ---
Chest x-ray single frontal view HISTORY: Shortness of breath. COMPARISON: 08/02/2018 FINDINGS: Radiopaque density projects within the soft tissues of the right neck. Clinical correlation. Mild venous congestion. Nodular density at the right lung apex. Biapical pleural thickening. Tortuous aorta. Mild cardiomegaly. Impression: Radiopaque density projects within the soft tissues of the right neck. Clinical correlation. Mild venous congestion. Nodular density at the right lung apex. Biapical pleural thickening. Tortuous aorta. Mild cardiomegaly.
--- NOTE | 2018-09-25 09:28 | CT ---
CT chest pulmonary angiogram HISTORY: Shortness of breath. Evaluate for pulmonary embolism. COMPARISON: None available. Technique: CT chest pulmonary angiogram was performed utilizing multiple contiguous axial images with the use of intravenous contrast. Subsequently, sagittal and coronal reformatted images were obtained. Sagittal and coronal MIPS reformatted images were obtained. This CT exam was performed using one or more of the following dose reduction techniques: Automated exposure control, adjustment of the mA and/or kV according to patient size, and/or use of iterative reconstruction technique. Findings: Somewhat limited study given suboptimal contrast timing bolus. No evidence of acute central pulmonary embolism. More limited evaluation of the distal segmental and subsegmental branches. For example a questionable filling defect within a subsegmental branch of the right upper lobe pulmonary artery on series 2, image 67 may represent artifact. No evidence of acute aortic dissection. No significant axillary adenopathy. Heterogeneity of the thyroid. 1.1 centimeter precarinal lymph node. No significant hilar adenopathy. Coronary calcifications. Hepatomegaly measuring up to 22 centimeters. Top normal spleen. Adrenal glands are preserved. Pancreas is preserved. Small hiatal hernia. Degenerative changes in the spine. Trachea thru central airways are patent. Right lung: Linear consolidative changes noted within the right upper lobe. Scattered bronchiectasis. Few scattered tree-in-bud opacities throughout the right lung, nonspecific. Clinical correlation. 4 millimeter calcified granuloma along the fissure on series 4, image 38. Mild focal consolidative changes at the posterior aspect of the right lower lobe. Left lung: Apical pleural thickening. Few scattered tree-in-bud opacities throughout the left lung. Mild atelectasis at the left lung base. Impression: Somewhat limited study given suboptimal contrast timing bolus. No evidence of acute central pulmonary embolism. More limited evaluation of the distal segmental and subsegmental branches. For example a questionable filling defect within a subsegmental branch of the right upper lobe pulmonary artery on series 2, image 67 may represent artifact. Right lung: Linear consolidative changes noted within the right upper lobe. Scattered bronchiectasis. Few scattered tree-in-bud opacities throughout the right lung, nonspecific. Clinical correlation. 4 millimeter calcified granuloma along the fissure on series 4, image 38. Mild focal consolidative changes at the posterior aspect of the right lower lobe. Left lung: Apical pleural thickening. Few scattered tree-in-bud opacities throughout the left lung. Mild atelectasis at the left lung base. Hepatomegaly measuring up to 22 centimeters. Additional findings as above.
[2018-09-25 10:25] LABS: ARTERIAL BLOOD GAS HCO3 25.3 mmol/L (21-28); ARTERIAL BLOOD GAS O2 SAT 97.8 % (95-98); ARTERIAL BLOOD GAS PCO2 37 mm/Hg (35-45); ARTERIAL BLOOD GAS PH 7.43 (7.35-7.45); ARTERIAL BLOOD GAS PO2 82 mm/Hg (80-100); ARTERIAL BLOOD GAS TCO2 25.7 mmol/L (22-28)
[2018-09-25] MEDS ORDERED: Alum-Mag Hydrox-Simethicone Susp (30 mL) PO ONE (11:52)
[2018-09-25] MEDS: Enoxaparin 40 mg Syringe SC SCH (11:57)
--- NOTE | 2018-09-25 12:28 | NM ---
Date of service: 09/25/2018 COMPARISON: Comparison is made with the previous CTA of the chest dated 09/25/2018 TECHNIQUE: 15.3 mCi technetium 99-m Xe-133 Gas. 4.1 mCI technetium 99-m MAA administered intravenously. FINDINGS: VENTILATION COMPONENT: Slightly heterogeneous without evidence of segmental or subsegmental ventilation defect. No evidence of significant retention of the radiotracer in the chest. PERFUSION COMPONENT: There are nonsegmental small foci of perfusion defect noted. No definite evidence of segmental mismatching perfusion defects in the lungs. IMPRESSION: Lowprobability ventilation perfusion scan for pulmonary embolism.
--- NOTE | 2018-09-25 14:18 | CP.PCM.HP ---
Past Patient History - Infectious Disease Hx of Infectious Diseases: None - Tetanus Immunizations Tetanus Immunization: Unknown - Past Medical History & Family History Past Medical History?: Yes - Past Social History Smoking Status: Former Smoker - CARDIAC Hx Hypertension: Yes - PULMONARY Hx Asthma: Yes Hx Chronic Obstructive Pulmonary Disease (COPD): Yes - NEUROLOGICAL Hx Neurological Disorder: No - HEENT Hx HEENT Problems: No - RENAL Hx Chronic Kidney Disease: No - ENDOCRINE/METABOLIC Hx Endocrine Disorders: No - HEMATOLOGICAL/ONCOLOGICAL Hx Blood Disorders: No - INTEGUMENTARY Hx Dermatological Problems: No - MUSCULOSKELETAL/RHEUMATOLOGICAL Hx Falls: No - GASTROINTESTINAL Hx Gastrointestinal Disorders: No - GENITOURINARY/GYNECOLOGICAL Hx Genitourinary Disorders: No - PSYCHIATRIC Hx Substance Use: No - SURGICAL HISTORY Hx Surgeries: No - ANESTHESIA Hx Anesthesia: No Hx Anesthesia Reactions: No Hx Malignant Hyperthermia: No Meds Allergies/Adverse Reactions: Allergies Allergy/AdvReac Type Severity Reaction Status Date / Time azithromycin [From Zithromax] Allergy RASH Verified 08/07/18 08:07 Physical Exam - Constitutional Appears: Well - Head Exam Head Exam: ATRAUMATIC, NORMAL INSPECTION, NORMOCEPHALIC - Eye Exam Eye Exam: EOMI, Normal appearance, PERRL Pupil Exam: NORMAL ACCOMODATION, PERRL - ENT Exam ENT Exam: Mucous Membranes Moist, Normal Exam - Neck Exam Neck exam: Positive for: Normal Inspection - Respiratory Exam Respiratory Exam: Decreased Breath Sounds - Cardiovascular Exam Cardiovascular Exam: REGULAR RHYTHM, +S1, +S2 - GI/Abdominal Exam GI & Abdominal Exam: Diminished Bowel Sounds, Soft - Rectal Exam Rectal Exam: Deferred Results - Vital Signs Recent Vital Signs: Last Vital Signs Temp 98.4 F 09/25/18 12:00 Pulse 114 H 09/25/18 11:50 Resp 14 09/25/18 11:50 BP 153/92 H 09/25/18 11:46 Pulse Ox 97 09/25/18 11:50 - Labs Result Diagrams: 09/25/18 00:20 09/25/18 00:20 Labs: Laboratory Results - last 24 hr 09/25/18 09/25/18 09/25/18 00:20 00:20 01:46 WBC 10.1 RBC 3.99 L Hgb 13.9 Hct 41.0 MCV 102.9 H D MCH 34.9 H MCHC 33.9 RDW 13.0 Plt Count 331 MPV 7.4 Neut % (Auto) 67.2 Lymph % (Auto) 28.7 [place] % (Auto) 2.5 Eos % (Auto) 0.4 Baso % (Auto) 1.2 Neut # (Auto) 6.8 Lymph # (Auto) 2.9 [place] # (Auto) 0.2 Eos # (Auto) 0.0 Baso # (Auto) 0.1 Puncture Site pCO2 pO2 HCO3 ABG pH ABG Total CO2 ABG O2 Saturation ABG Base Excess Vlad Test ABG Potassium A-a O2 Difference Respiratory Index Glucose Lactate FiO2 Sodium 134 Potassium 3.3 L Chloride 95 L Carbon Dioxide 27 Anion Gap 15 BUN 12 Creatinine 1.0 Est GFR ( Amer) > 60 Est GFR (Non-Af Amer) > 60 Random Glucose 239 H D Hemoglobin A1c Lactic Acid Calcium 9.0 Phosphorus Magnesium 1.6 Total Bilirubin 0.7 AST 103 H ALT 151 H D Alkaline Phosphatase 124 Total Creatine Kinase CK-MB (Mass) Troponin I NT-Pro-B Natriuret Pep Total Protein 6.8 Albumin 4.0 Globulin 2.9 Albumin/Globulin Ratio 1.4 TSH 3rd Generation Arterial Blood Potassium Urine Color Urine Clarity Urine pH Ur Specific [place] Urine Protein Urine Glucose (UA) Urine Ketones Urine Blood Urine Nitrate Urine Bilirubin Urine Urobilinogen Ur Leukocyte Esterase Urine WBC (Auto) Urine Opiates Screen Urine Methadone Screen Ur Barbiturates Screen Ur Phencyclidine Scrn Ur Amphetamines Screen U Benzodiazepines Scrn U Oth Cocaine Metabols U Cannabinoids Screen Influenza Typ A,B (EIA) Negative for flu a/b 09/25/18 09/25/18 09/25/18 01:47 02:23 03:19 WBC RBC Hgb Hct MCV MCH MCHC RDW Plt Count MPV Neut % (Auto) Lymph % (Auto) [place] % (Auto) Eos % (Auto) Baso % (Auto) Neut # (Auto) Lymph # (Auto) [place] # (Auto) Eos # (Auto) Baso # (Auto) Puncture Site pCO2 pO2 HCO3 ABG pH ABG Total CO2 ABG O2 Saturation ABG Base Excess Vlad Test ABG Potassium A-a O2 Difference Respiratory Index Glucose Lactate FiO2 Sodium Potassium Chloride Carbon Dioxide Anion Gap BUN Creatinine Est GFR ( Amer) Est GFR (Non-Af Amer) Random Glucose Hemoglobin A1c Lactic Acid Calcium Phosphorus Magnesium Total Bilirubin AST ALT Alkaline Phosphatase Total Creatine Kinase CK-MB (Mass) Troponin I NT-Pro-B Natriuret Pep 51.5 Total Protein Albumin Globulin Albumin/Globulin Ratio TSH 3rd Generation 1.21 Arterial Blood Potassium Urine Color Straw Urine Clarity Clear Urine pH 7.0 Ur Specific [place] 1.000 L Urine Protein Negative Urine Glucose (UA) 3+ H Urine Ketones Negative Urine Blood Negative Urine Nitrate Negative Urine Bilirubin Negative Urine Urobilinogen Normal Ur Leukocyte Esterase Neg Urine WBC (Auto) < 1 Urine Opiates Screen Negative Urine Methadone Screen Negative Ur Barbiturates Screen Negative Ur Phencyclidine Scrn Negative Ur Amphetamines Screen Negative U Benzodiazepines Scrn Negative U Oth Cocaine Metabols Negative U Cannabinoids Screen Negative Influenza Typ A,B (EIA) 09/25/18 09/25/18 09/25/18 03:45 03:45 03:49 WBC RBC Hgb Hct MCV MCH MCHC RDW Plt Count MPV Neut % (Auto) Lymph % (Auto) [place] % (Auto) Eos % (Auto) Baso % (Auto) Neut # (Auto) Lymph # (Auto) [place] # (Auto) Eos # (Auto) Baso # (Auto) Puncture Site pCO2 pO2 HCO3 ABG pH ABG Total CO2 ABG O2 Saturation ABG Base Excess Vlad Test ABG Potassium A-a O2 Difference Respiratory Index Glucose Lactate FiO2 Sodium Potassium Chloride Carbon Dioxide Anion Gap BUN Creatinine Est GFR ( Amer) Est GFR (Non-Af Amer) Random Glucose Hemoglobin A1c 5.0 Lactic Acid Calcium Phosphorus 1.3 L Magnesium Total Bilirubin AST ALT Alkaline Phosphatase Total Creatine Kinase 44 L CK-MB (Mass) 0.31 Troponin I < 0.0120 NT-Pro-B Natriuret Pep Total Protein Albumin Globulin Albumin/Globulin Ratio TSH 3rd Generation Arterial Blood Potassium Urine Color Urine Clarity Urine pH Ur Specific [place] Urine Protein Urine Glucose (UA) Urine Ketones Urine Blood Urine Nitrate Urine Bilirubin Urine Urobilinogen Ur Leukocyte Esterase Urine WBC (Auto) Urine Opiates Screen Urine Methadone Screen Ur Barbiturates Screen Ur Phencyclidine Scrn Ur Amphetamines Screen U Benzodiazepines Scrn U Oth Cocaine Metabols U Cannabinoids Screen Influenza Typ A,B (EIA) 09/25/18 09/25/18 09/25/18 03:49 08:00 10:22 WBC RBC Hgb Hct MCV MCH MCHC RDW Plt Count MPV Neut % (Auto) Lymph % (Auto) [place] % (Auto) Eos % (Auto) Baso % (Auto) Neut # (Auto) Lymph # (Auto) [place] # (Auto) Eos # (Auto) Baso # (Auto) Puncture Site Lb pCO2 37 pO2 82 HCO3 25.3 ABG pH 7.43 ABG Total CO2 25.7 ABG O2 Saturation 97.8 ABG Base Excess 0.5 Vlad Test Na ABG Potassium 4.1 A-a O2 Difference 21.0 Respiratory Index 0.3 Glucose 299 H Lactate 2.9 H FiO2 21.0 Sodium 139.0 Potassium Chloride 107.0 Carbon Dioxide Anion Gap BUN Creatinine Est GFR ( Amer) Est GFR (Non-Af Amer) Random Glucose Hemoglobin A1c Lactic Acid 1.6 2.1 Calcium Phosphorus Magnesium Total Bilirubin AST ALT Alkaline Phosphatase Total Creatine Kinase CK-MB (Mass) Troponin I NT-Pro-B Natriuret Pep Total Protein Albumin Globulin Albumin/Globulin Ratio TSH 3rd Generation Arterial Blood Potassium 4.1 Urine Color Urine Clarity Urine pH Ur Specific [place] Urine Protein Urine Glucose (UA) Urine Ketones Urine Blood Urine Nitrate Urine Bilirubin Urine Urobilinogen Ur Leukocyte Esterase Urine WBC (Auto) Urine Opiates Screen Urine Methadone Screen Ur Barbiturates Screen Ur Phencyclidine Scrn Ur Amphetamines Screen U Benzodiazepines Scrn U Oth Cocaine Metabols U Cannabinoids Screen Influenza Typ A,B (EIA)
[2018-09-26] MEDS: Albuterol-Ipratrop 3 mg / 0.5 (3 ml) UD INH SCH ×2 (01:23→07:50)
[2018-09-26] MEDS: MethylPREDNISolone 40 mg Vial IVP SCH ×2 (05:42→21:55)
[2018-09-26 06:12] LABS: BASO # 0.1 K/uL (0.0-0.2); BASO % 0.4 % (0.0-2.0); HEMOGLOBIN 12.7 g/dL (12.0-18.0); LYMPH # 1.2 K/uL (1.0-4.3); LYMPH % 4.3 % (20.0-40.0); MEAN CELL VOLUME 103.9 fL (80.0-94.0); MEAN CORPUSCULAR HEMOGLOBIN 34.4 pg (27.0-31.0); MEAN CORPUSCULAR HGB CONC 33.1 g/dL (33.0-37.0); MEAN PLATELET VOLUME 7.9 fL (7.2-11.7); MONO # 0.7 K/uL (0.0-0.8); MONO % 2.4 % (0.0-10.0); NEUT # 25.4 K/uL (1.8-7.0); NEUT % 92.9 % (50.0-75.0); PLATELET COUNT 316 K/uL (130-400); RED CELL DISTRIBUTION WIDTH 13.3 % (11.5-14.5); WHITE BLOOD COUNT 27.4 K/uL (4.8-10.8)
[2018-09-26 06:32] LABS: ALB/GLOB RATIO 1.2 (1.0-2.1); ALBUMIN 3.4 g/dL (3.5-5.0); ALT/SGPT 107 U/L (21-72); AST/SGOT 50 U/L (17-59); BLOOD UREA NITROGEN 17 mg/dL (9-20); CALCIUM 8.9 mg/dl (8.6-10.4); GFR NON-AFRICAN AMERICAN > 60
[2018-09-26 08:55] LABS: LYMPHOCYTE 7 % (20-40); MONOCYTE 2 % (0-10); NEUTROPHIL 91 % (50-75); PLATELET ESTIMATE NORMAL (NORMAL); TOTAL CELLS COUNTED 100
[2018-09-26 08:56] LABS: TOXIC GRANULATION PRESENT
[2018-09-26] MEDS: Enoxaparin 40 mg Syringe SC SCH (10:00)
[2018-09-26] MEDS ORDERED: Albuterol-Ipratrop 3 mg / 0.5 (3 ml) UD INH PRN (10:38)
--- NOTE | 2018-09-26 12:53 | CP.CCUPN ---
CCU Subjective - Physician Review Subjective (Free Text): PGY-[address] progress note for Dr Jaime Padilla Patient was seen and examined at bedside today. Patient was resting comfortably in bed. Patient says he believes that his heart rate is high due to combining two asthma medications together at home before he came to the ED. At this encounter, patient denies shortness of breath, chest pain, palpitations, abdominal pain, nausea, or vomiting. Critical Care Time Spent (in minutes): 35 CCU Objective - Vital Signs / Intake & Output Vital Signs (Last 4 hours): Vital Signs Pulse Resp BP Pulse Ox 09/26/18 11:00 116 H 20 94 L 09/26/18 10:58 116 H 15 149/91 H 95 09/26/18 10:00 119 H 14 96 09/26/18 09:59 113 H 15 164/84 H 95 09/26/18 09:00 128 H 13 95 09/26/18 08:58 123 H 19 138/80 94 L Intake and Output (Last 8hrs): Intake & Output 09/25/18 09/26/18 09/26/18 22:59 06:59 14:59 Intake Total 603 100 0 Output Total 875 900 Balance -272 -800 0 Weight 160 lb 6.4 oz Intake: Intake, IV Amount 63 100 Left FA 63 Right Antecubital 100 Oral 540 0 0 Output: Urine 875 900 Urine, Voided 875 900 Emesis 0 Other: # Voids Urine, Voided 1 0 # Bowel Movements 0 0 0 - Physical Exam Head: Positive for: Atraumatic, Normocephalic Pupils: Positive for: PERRL Extroacular Muscles: Positive for: EOMI Conjunctiva: Positive for: Normal Mouth: Positive for: Moist Mucous Membranes Respiratory/Chest: Positive for: Clear to Auscultation, Good Air Exchange Cardiovascular: Positive for: Normal S1, S2, Tachycardic Abdomen: Positive for: Normal Bowel Sounds. Negative for: Tenderness, Distention Upper Extremity: Positive for: Normal Inspection. Negative for: Edema Lower Extremity: Positive for: Normal Inspection. Negative for: Edema Neurological: Positive for: GCS=15, CN II-XII Intact, Speech Normal Skin: Positive for: Warm, Dry, Normal Color Psychiatric: Positive for: Alert, Oriented x 3, Normal Insight, Normal Concentration - Medications Active Medications: Active Medications Generic Name Dose Route Start Last Admin Trade Name Freq PRN Reason Stop Dose Admin Albuterol/Ipratropium 3 ml 09/26/18 10:38 Duoneb 3 Mg/0.5 Mg (3 Ml) Ud INH RQ6 PRN Shortness of Breath Chlordiazepoxide 5 mg 09/25/18 05:01 09/25/18 17:46 Librium PO 5 mg Q8 PRN Administration Agitation Diltiazem HCl 30 mg 09/26/18 11:00 09/26/18 11:23 Cardizem PO 30 mg Q12H [facility] Administration Enoxaparin Sodium 40 mg 09/25/18 10:30 09/26/18 10:00 Lovenox SC 40 mg DAILY [facility] Administration Fluticasone/Vilanterol 1 puff 09/26/18 08:00 Breo Ellipta 200-25 Mcg Inh INH RQD [facility] Ceftriaxone Sodium 1 gm/ 100 mls @ 100 mls/hr 09/26/18 04:00 09/26/18 03:11 Sodium Chloride IVPB 100 mls/hr Q24H [facility] Administration Protocol Methylprednisolone 40 mg 09/26/18 22:00 Solu-Medrol IVP Q12 [facility] Montelukast Sodium 10 mg 09/25/18 22:00 09/25/18 22:30 Singulair PO 10 mg HS [facility] Administration Pantoprazole Sodium 40 mg 09/26/18 10:45 09/26/18 11:24 Protonix Inj IVP 40 mg DAILY [facility] Administration - Patient Studies Lab Studies: Microbiology Studies 09/25/18 05:29 MRSA Culture (Admit) - Final Naris MRSA NOT DETECTED 09/25/18 04:48 Urine Culture - Final Urine,Clean Catch No Growth (<1,000 CFU/ML) 09/25/18 08:50 Blood Culture - Preliminary Blood NO GROWTH AFTER 24 HOURS 09/25/18 02:59 Blood Culture - Preliminary Blood NO GROWTH AFTER 24 HOURS Lab Studies 09/26/18 09/26/18 Range/Units 06:07 06:05 WBC 27.4 H D (4.8-10.8) K/uL RBC 3.70 L (4.40-5.90) Mil/uL Hgb 12.7 (12.0-18.0) g/dL Hct 38.5 (35.0-51.0) % MCV 103.9 H (80.0-94.0) fL MCH 34.4 H (27.0-31.0) pg MCHC 33.1 (33.0-37.0) g/dL RDW 13.3 (11.5-14.5) % Plt Count 316 (130-400) K/uL MPV 7.9 (7.2-11.7) fL Neut % (Auto) 92.9 H (50.0-75.0) % Lymph % (Auto) 4.3 L (20.0-40.0) % [place] % (Auto) 2.4 (0.0-10.0) % Eos % (Auto) 0.0 (0.0-4.0) % Baso % (Auto) 0.4 (0.0-2.0) % Neut # (Auto) 25.4 H (1.8-7.0) K/uL Lymph # (Auto) 1.2 (1.0-4.3) K/uL [place] # (Auto) 0.7 (0.0-0.8) K/uL Eos # (Auto) 0.0 (0.0-0.7) K/uL Baso # (Auto) 0.1 (0.0-0.2) K/uL Neutrophils % (Manual) 91 H (50-75) % Lymphocytes % (Manual) 7 L (20-40) % Monocytes % (Manual) 2 (0-10) % Toxic Granulation Present Platelet Estimate Normal (NORMAL) Sodium 138 (132-148) mmol/L Potassium 4.2 (3.6-5.2) mmol/L Chloride 106 (98-107) mmol/L Carbon Dioxide 24 (22-30) mmol/L Anion Gap 12 (10-20) BUN 17 (9-20) mg/dL Creatinine 0.6 L (0.8-1.5) mg/dL Est GFR ( Amer) > 60 Est GFR (Non-Af Amer) > 60 Random Glucose 155 H D (75-110) mg/dL Calcium 8.9 (8.6-10.4) mg/dl Phosphorus 3.6 (2.5-4.5) mg/dL Magnesium 2.1 (1.6-2.3) mg/dL Total Bilirubin 0.9 (0.2-1.3) mg/dL AST 50 (17-59) U/L ALT 107 H D (21-72) U/L Alkaline Phosphatase 78 (38-126) U/L Total Protein 6.3 (6.3-8.3) g/dL Albumin 3.4 L (3.5-5.0) g/dL Globulin 2.9 (2.2-3.9) gm/dL Albumin/Globulin Ratio 1.2 (1.0-2.1) Laboratory Results - last 24 hr 09/26/18 09/26/18 06:05 06:07 WBC 27.4 H D RBC 3.70 L Hgb 12.7 Hct 38.5 MCV 103.9 H MCH 34.4 H MCHC 33.1 RDW 13.3 Plt Count 316 MPV 7.9 Neut % (Auto) 92.9 H Lymph % (Auto) 4.3 L [place] % (Auto) 2.4 Eos % (Auto) 0.0 Baso % (Auto) 0.4 Neut # (Auto) 25.4 H Lymph # (Auto) 1.2 [place] # (Auto) 0.7 Eos # (Auto) 0.0 Baso # (Auto) 0.1 Neutrophils % (Manual) 91 H Lymphocytes % (Manual) 7 L Monocytes % (Manual) 2 Toxic Granulation Present Platelet Estimate Normal Sodium 138 Potassium 4.2 Chloride 106 Carbon Dioxide 24 Anion Gap 12 BUN 17 Creatinine 0.6 L Est GFR ( Amer) > 60 Est GFR (Non-Af Amer) > 60 Random Glucose 155 H D Calcium 8.9 Phosphorus 3.6 Magnesium 2.1 Total Bilirubin 0.9 AST 50 ALT 107 H D Alkaline Phosphatase 78 Total Protein 6.3 Albumin 3.4 L Globulin 2.9 Albumin/Globulin Ratio 1.2 Critical Care Progress Note - Nutrition Nutrition: Nutrition Category Date Time Status Regular Diet [DIET] Diets 09/25/18 Breakfast Active Assessment/Plan - Assessment and Plan (Free Text) Plan: Patient is a 57 year old male with PMHx of COPD, HTN, and asthma, presented to the ED on 09/24 with shortness of breath secondary to asthma exacerbation, transferred to ICU for better management of sinus tachycardia (HR -150s) Neuro - AAOx3 Cardiac - Tachycardic @ 120s - start Cardizem 30mg Q12 - f/u Echo results Pulm - Duoneb Q6 PRN - start Breo Ellipta 200 1 puff Qdaily - Solu-Medrol 40mg IVP Q12, Singulair 10mg PO - V/Q scan 09/25: low probability of PE - Pulm consult - Dr Marshall - f/u recs GI - Regular Diet - Protonix for GI ppx Renal - monitor BUN/Cr Endo - HbA1c 5.0 Hem - Hb stable - continue to monitor ID - Leukocytosis: WBC 27.4 today, up from 10.1 - 09/25 blood cx, urine cx: no growth afte 24 hours - 09/25 lactate: 2.1 - continue Ceftriaxone - f/u ID Dr Persaud recs PPx - DVT ppx - lovenox, SCDs - GI ppx - Protonix - Librium 5mg PRN for DT ppx Plan discussed with Dr Randy Wong, PGY-1 - Date & Time Date: 09/26/18 Time: 08:00
--- NOTE | 2018-09-26 18:17 | CP.PCM.PN ---
Subjective - Date & Time of Evaluation Date of Evaluation: 09/26/18 Time of Evaluation: 11:00 - Subjective Subjective: clinically same Objective - Vital Signs/Intake and Output Vital Signs (last 24 hours): Temp Pulse Resp BP Pulse Ox 98.2 F 112 H 19 143/79 96 09/26/18 16:00 09/26/18 16:00 09/26/18 16:00 09/26/18 15:58 09/26/18 16:00 Intake and Output: 09/26/18 09/26/18 06:59 18:59 Intake Total 280 900 Output Total 1175 800 Balance -895 100 - Medications Medications: Current Medications Albuterol/Ipratropium (Duoneb 3 Mg/0.5 Mg (3 Ml) Ud) 3 ml INH RQ6 PRN PRN Reason: Shortness of Breath Chlordiazepoxide (Librium) 5 mg PO Q8 PRN PRN Reason: Agitation Last Admin: 09/25/18 17:46 Dose: 5 mg Diltiazem HCl (Cardizem) 30 mg PO Q12H [facility] Last Admin: 09/26/18 11:23 Dose: 30 mg Enoxaparin Sodium (Lovenox) 40 mg SC DAILY [facility] Last Admin: 09/26/18 10:00 Dose: 40 mg Fluticasone/Vilanterol (Breo Ellipta 200-25 Mcg Inh) 1 puff INH RQD [facility] Ceftriaxone Sodium 1 gm/ (Sodium Chloride) 100 mls @ 100 mls/hr IVPB Q24H [facility]; Protocol Last Admin: 09/26/18 03:11 Dose: 100 mls/hr Methylprednisolone (Solu-Medrol) 40 mg IVP Q12 [facility] Montelukast Sodium (Singulair) 10 mg PO HS [facility] Last Admin: 09/25/18 22:30 Dose: 10 mg Pantoprazole Sodium (Protonix Inj) 40 mg IVP DAILY [facility] Last Admin: 09/26/18 11:24 Dose: 40 mg - Labs Labs: 09/26/18 06:07 09/26/18 06:05 Assessment and Plan - Assessment and Plan (Free Text) Plan: ID consult today as patient's WBC jump up from 10-37 DuoNeb Rocephin Solu-Medrol Singulair Protonix and Lovenox Monitor WBC Pulmonary consult As ordered
--- NOTE | 2018-09-26 18:24 | CARD ---
APPROVED REPORT Date of service: 09/26/2018 EXAM: Two-dimensional and M-mode echocardiogram with Doppler and color Doppler. Other Information Quality : GoodRhythm : INDICATION COPD sinus tachycardia RISK FACTORS Hypertension Smoking 2D DIMENSIONS IVSd1.1 (0.7-1.1cm)LVDd4.8 (3.9-5.9cm) PWd1.1 (0.7-1.1cm)LA Dwwlgy11 (18-58mL) LVDs3.4 (2.5-4.0cm)FS (%) 28.8 % LVEF (%)70.0 (>50%)LVEF (Lin's)66.43 % M-Mode DIMENSIONS Left Atrium (MM)4.39 (2.5-4.0cm)IVSd0.76 (0.7-1.1cm) Aortic Root3.72 (2.2-3.7cm)LVDd6.40 (4.0-5.6cm) Aortic Cusp Exc.2.54 (1.5-2.0cm)PWd0.83 (0.7-1.1cm) FS (%) 44 %LVDs3.61 (2.0-3.8cm) LVEF (%)74 (>50%) Mitral Valve MV E Ipzorsxj83.2cm/sMV A Eyieorxu26.5cm/sE/A ratio0.8 TDI Lateral E' Peak V11.02cm/sMedial E' Peak V11.98cm/sE/Lateral E'6.8 E/Medial E'6.3 LEFT VENTRICLE The left ventricle is normal size. There is normal left ventricular wall thickness. The left ventricular function is normal. The left ventricular ejection fraction is within the normal range. There is normal LV segmental wall motion. Transmitral Doppler flow pattern is abnormal. RIGHT VENTRICLE The right ventricle is normal size. ATRIA The left atrium is mildly dilated. The right atrium size is normal. AORTIC VALVE The aortic valve is normal in structure. MITRAL VALVE Mitral regurgitation is trace. TRICUSPID VALVE There is trace to mild tricuspid regurgitation. <Conclusion> Normal LV systolic function. Diastolic dysfunction. Dilated LA. Trace MR. Trace to mild TR.
[2018-09-26] MEDS: Piperacill/Tazo 3.375gm in Dex 3.375 GM/50 ML BAG IVPB SCH (22:00)
[2018-09-26] MEDS ORDERED: Piperacill/Tazo 3.375gm in Dex 3.375 GM/50 ML BAG IVPB SCH (22:00)
[2018-09-27] MEDS: Piperacill/Tazo 3.375gm in Dex 3.375 GM/50 ML BAG IVPB SCH ×4 (04:00→21:25)
[2018-09-27 06:05] LABS: BASO # 0.1 K/uL (0.0-0.2); BASO % 0.3 % (0.0-2.0); HEMOGLOBIN 13.2 g/dL (12.0-18.0); LYMPH % 4.7 % (20.0-40.0); MEAN CELL VOLUME 103.8 fL (80.0-94.0); MEAN CORPUSCULAR HEMOGLOBIN 34.6 pg (27.0-31.0); MEAN CORPUSCULAR HGB CONC 33.3 g/dL (33.0-37.0); MEAN PLATELET VOLUME 7.9 fL (7.2-11.7); MONO # 0.7 K/uL (0.0-0.8); MONO % 3.4 % (0.0-10.0); NEUT # 19.2 K/uL (1.8-7.0); NEUT % 91.6 % (50.0-75.0); PLATELET COUNT 332 K/uL (130-400); RBC 3.82 Mil/uL (4.40-5.90); WHITE BLOOD COUNT 20.9 K/uL (4.8-10.8)
[2018-09-27 06:20] LABS: ALB/GLOB RATIO 1.3 (1.0-2.1); ALBUMIN 3.6 g/dL (3.5-5.0); ALT/SGPT 142 U/L (21-72); AST/SGOT 114 U/L (17-59); BLOOD UREA NITROGEN 22 mg/dL (9-20); CALCIUM 9.1 mg/dl (8.6-10.4); GFR NON-AFRICAN AMERICAN > 60
[2018-09-27] MEDS: Fluticasone-Vilanterol 200/25mcg Diskus INH SCH (07:54)
[2018-09-27 08:34] LABS: LYMPHOCYTE 4 % (20-40); MONOCYTE 1 % (0-10); NEUTROPHIL 95 % (50-75); PLATELET ESTIMATE NORMAL (NORMAL); TOTAL CELLS COUNTED 100
[2018-09-27] MEDS: Enoxaparin 40 mg Syringe SC SCH (09:39)
[2018-09-27] MEDS: MethylPREDNISolone 40 mg Vial IVP SCH ×2 (09:39→21:25)
--- NOTE | 2018-09-27 14:36 | CP.PCM.PN ---
Subjective - Date & Time of Evaluation Date of Evaluation: 09/27/18 Time of Evaluation: 11:30 - Subjective Subjective: clinically same Objective - Vital Signs/Intake and Output Vital Signs (last 24 hours): Temp Pulse Resp BP Pulse Ox 98.1 F 96 H 9 L 144/90 96 09/27/18 12:00 09/27/18 13:53 09/27/18 13:53 09/27/18 13:53 09/27/18 13:53 Intake and Output: 09/27/18 09/27/18 06:59 18:59 Intake Total 340 1300 Output Total 1100 480 Balance -760 820 - Medications Medications: Current Medications Albuterol/Ipratropium (Duoneb 3 Mg/0.5 Mg (3 Ml) Ud) 3 ml INH RQ6 PRN PRN Reason: Shortness of Breath Chlordiazepoxide (Librium) 5 mg PO Q8 PRN PRN Reason: Agitation Last Admin: 09/25/18 17:46 Dose: 5 mg Diltiazem HCl (Cardizem) 30 mg PO Q12H [facility] Last Admin: 09/27/18 11:03 Dose: 30 mg Doxycycline Hyclate (Doryx) 100 mg PO Q12H [facility]; Protocol Last Admin: 09/27/18 11:03 Dose: 100 mg Enoxaparin Sodium (Lovenox) 40 mg SC DAILY [facility] Last Admin: 09/27/18 09:39 Dose: 40 mg Fluticasone/Vilanterol (Breo Ellipta 200-25 Mcg Inh) 1 puff INH RQD [facility] Last Admin: 09/27/18 07:54 Dose: 1 puff Piperacillin Sod/Tazobactam Sod (Zosyn 3.375 Gm Iv Premix) 3.375 gm in 50 mls @ 100 mls/hr IVPB Q6H [facility]; Protocol Last Admin: 09/27/18 09:41 Dose: 100 mls/hr Methylprednisolone (Solu-Medrol) 40 mg IVP Q12 [facility] Last Admin: 09/27/18 09:39 Dose: 40 mg Montelukast Sodium (Singulair) 10 mg PO HS [facility] Last Admin: 09/26/18 21:55 Dose: 10 mg Pantoprazole Sodium (Protonix Ec Tab) 40 mg PO DAILY [facility] - Labs Labs: 09/27/18 05:53 09/27/18 05:51 - Constitutional Appears: Well - Head Exam Head Exam: ATRAUMATIC, NORMAL INSPECTION, NORMOCEPHALIC - Eye Exam Eye Exam: EOMI, Normal appearance, PERRL Pupil Exam: NORMAL ACCOMODATION, PERRL - ENT Exam ENT Exam: Mucous Membranes Moist, Normal Exam - Neck Exam Neck Exam: Full ROM, Normal Inspection. absent: Lymphadenopathy - Respiratory Exam Respiratory Exam: Decreased Breath Sounds - Cardiovascular Exam Cardiovascular Exam: REGULAR RHYTHM, +S1, +S2 - GI/Abdominal Exam GI & Abdominal Exam: Soft, Diminished Bowel Sounds - Rectal Exam Rectal Exam: Deferred
[2018-09-27 14:46] LABS: OXYCODONE SCREEN negative
--- NOTE | 2018-09-27 18:29 | CP.PCM.CON ---
History of Present Illness - History of Present Illness History of Present Illness: Reason for consultation: Shortness of breath 57-year-old male with history of asthma who presented to emergency room with worsening shortness of breath, palpitation and cough. Patient was admitted to intensive care unit for palpitation. Patient admits to using very frequent albuterol. Denies fever chills, denies chest pain. Patient started on Cardizem and is for transfer to the floor. Review of Systems - Review of Systems All systems: reviewed and no additional remarkable complaints except (Shortness of breath and palpitation) Past Patient History - Infectious Disease Hx of Infectious Diseases: None - Tetanus Immunizations Tetanus Immunization: Unknown - Past Medical History & Family History Past Medical History?: Yes - Past Social History Smoking Status: Former Smoker - CARDIAC Hx Hypertension: Yes - PULMONARY Hx Asthma: Yes Hx Chronic Obstructive Pulmonary Disease (COPD): Yes - NEUROLOGICAL Hx Neurological Disorder: No - HEENT Hx HEENT Problems: No - RENAL Hx Chronic Kidney Disease: No - ENDOCRINE/METABOLIC Hx Endocrine Disorders: No - HEMATOLOGICAL/ONCOLOGICAL Hx Blood Disorders: No - INTEGUMENTARY Hx Dermatological Problems: No - MUSCULOSKELETAL/RHEUMATOLOGICAL Hx Falls: No - GASTROINTESTINAL Hx Gastrointestinal Disorders: No - GENITOURINARY/GYNECOLOGICAL Hx Genitourinary Disorders: No - PSYCHIATRIC Hx Substance Use: No - SURGICAL HISTORY Hx Surgeries: No - ANESTHESIA Hx Anesthesia: No Hx Anesthesia Reactions: No Hx Malignant Hyperthermia: No Meds Allergies/Adverse Reactions: Allergies Allergy/AdvReac Type Severity Reaction Status Date / Time azithromycin [From Zithromax] Allergy RASH Verified 08/07/18 08:07 - Medications Medications: Current Medications Albuterol/Ipratropium (Duoneb 3 Mg/0.5 Mg (3 Ml) Ud) 3 ml INH RQ6 PRN PRN Reason: Shortness of Breath Chlordiazepoxide (Librium) 5 mg PO Q8 PRN PRN Reason: Agitation Last Admin: 09/25/18 17:46 Dose: 5 mg Diltiazem HCl (Cardizem) 30 mg PO Q12H [facility] Last Admin: 09/27/18 11:03 Dose: 30 mg Doxycycline Hyclate (Doryx) 100 mg PO Q12H [facility]; Protocol Last Admin: 09/27/18 11:03 Dose: 100 mg Enoxaparin Sodium (Lovenox) 40 mg SC DAILY [facility] Last Admin: 09/27/18 09:39 Dose: 40 mg Fluticasone/Vilanterol (Breo Ellipta 200-25 Mcg Inh) 1 puff INH RQD [facility] Last Admin: 09/27/18 07:54 Dose: 1 puff Piperacillin Sod/Tazobactam Sod (Zosyn 3.375 Gm Iv Premix) 3.375 gm in 50 mls @ 100 mls/hr IVPB Q6H [facility]; Protocol Last Admin: 09/27/18 09:41 Dose: 100 mls/hr Methylprednisolone (Solu-Medrol) 40 mg IVP Q12 [facility] Last Admin: 09/27/18 09:39 Dose: 40 mg Montelukast Sodium (Singulair) 10 mg PO HS [facility] Last Admin: 09/26/18 21:55 Dose: 10 mg Pantoprazole Sodium (Protonix Ec Tab) 40 mg PO DAILY [facility] Physical Exam - Head Exam Head Exam: ATRAUMATIC, NORMOCEPHALIC - Eye Exam Eye Exam: Normal appearance - ENT Exam ENT Exam: Mucous Membranes Moist - Neck Exam Neck exam: Positive for: Normal Inspection - Respiratory Exam Respiratory Exam: Rhonchi, Wheezes - Cardiovascular Exam Cardiovascular Exam: REGULAR RHYTHM - GI/Abdominal Exam GI & Abdominal Exam: Normal Bowel Sounds - Extremities Exam Extremities exam: Positive for: normal inspection - Neurological Exam Neurological exam: Alert, Oriented x3 Results - Vital Signs Recent Vital Signs: Last Vital Signs Temp 98.2 F 09/27/18 16:00 Pulse 98 H 09/27/18 16:23 Resp 9 L 09/27/18 16:23 BP 143/82 09/27/18 16:23 Pulse Ox 94 L 09/27/18 16:23 - Labs Result Diagrams: 09/27/18 05:53 09/27/18 05:51 Labs: Laboratory Results - last 24 hr 09/25/18 09/25/18 09/27/18 01:47 08:47 05:51 WBC RBC Hgb Hct MCV MCH MCHC RDW Plt Count MPV Neut % (Auto) Lymph % (Auto) [place] % (Auto) Eos % (Auto) Baso % (Auto) Neut # (Auto) Lymph # (Auto) [place] # (Auto) Eos # (Auto) Baso # (Auto) Neutrophils % (Manual) Lymphocytes % (Manual) Monocytes % (Manual) Platelet Estimate Sodium Potassium Chloride Carbon Dioxide Anion Gap BUN Creatinine Est GFR ( Amer) Est GFR (Non-Af Amer) Random Glucose Lactic Acid 1.7 Calcium Total Bilirubin AST ALT Alkaline Phosphatase Total Protein Albumin Globulin Albumin/Globulin Ratio Ur Opiates (GC/MS) Negative Oxycodone Screen negative Ur Oxycodone Comment See note Ur Methadone, Qual Negative Urine Propoxyphene Negative Methaqualone Negative Ur Barbiturates, Qual Negative Ur Phencyclidine (PCP) Negative Ur Amphetamines Screen Negative U Benzodiazepines Qual Negative Urine Cocaine Negative U Marijuana (THC) Screen Negative Drugs of Abuse Note See note 09/27/18 09/27/18 05:51 05:53 WBC 20.9 H RBC 3.82 L Hgb 13.2 Hct 39.7 MCV 103.8 H MCH 34.6 H MCHC 33.3 RDW 13.0 Plt Count 332 MPV 7.9 Neut % (Auto) 91.6 H Lymph % (Auto) 4.7 L [place] % (Auto) 3.4 Eos % (Auto) 0.0 Baso % (Auto) 0.3 Neut # (Auto) 19.2 H Lymph # (Auto) 1.0 [place] # (Auto) 0.7 Eos # (Auto) 0.0 Baso # (Auto) 0.1 Neutrophils % (Manual) 95 H Lymphocytes % (Manual) 4 L Monocytes % (Manual) 1 Platelet Estimate Normal Sodium 136 Potassium 4.4 Chloride 104 Carbon Dioxide 26 Anion Gap 10 BUN 22 H Creatinine 0.7 L Est GFR ( Amer) > 60 Est GFR (Non-Af Amer) > 60 Random Glucose 139 H Lactic Acid Calcium 9.1 Total Bilirubin 1.2 AST 114 H D ALT 142 H D Alkaline Phosphatase 77 Total Protein 6.3 Albumin 3.6 Globulin 2.8 Albumin/Globulin Ratio 1.3 Ur Opiates (GC/MS) Oxycodone Screen Ur Oxycodone Comment Ur Methadone, Qual Urine Propoxyphene Methaqualone Ur Barbiturates, Qual Ur Phencyclidine (PCP) Ur Amphetamines Screen U Benzodiazepines Qual Urine Cocaine U Marijuana (THC) Screen Drugs of Abuse Note Assessment & Plan (1) Asthma exacerbation Status: Acute Comment: Continue nebulizer treatment, IV antibiotics and steroids. Peak flow every shift. For transfer to floor (2) Tachycardia Status: Acute
--- NOTE | 2018-09-27 22:18 | CP.PCM.CON ---
History of Present Illness - History of Present Illness History of Present Illness: dictated Past Patient History - Infectious Disease Hx of Infectious Diseases: None - Tetanus Immunizations Tetanus Immunization: Unknown - Past Medical History & Family History Past Medical History?: Yes - Past Social History Smoking Status: Former Smoker - CARDIAC Hx Hypertension: Yes - PULMONARY Hx Asthma: Yes Hx Chronic Obstructive Pulmonary Disease (COPD): Yes - NEUROLOGICAL Hx Neurological Disorder: No - HEENT Hx HEENT Problems: No - RENAL Hx Chronic Kidney Disease: No - ENDOCRINE/METABOLIC Hx Endocrine Disorders: No - HEMATOLOGICAL/ONCOLOGICAL Hx Blood Disorders: No - INTEGUMENTARY Hx Dermatological Problems: No - MUSCULOSKELETAL/RHEUMATOLOGICAL Hx Falls: No - GASTROINTESTINAL Hx Gastrointestinal Disorders: No - GENITOURINARY/GYNECOLOGICAL Hx Genitourinary Disorders: No - PSYCHIATRIC Hx Substance Use: No - SURGICAL HISTORY Hx Surgeries: No - ANESTHESIA Hx Anesthesia: No Hx Anesthesia Reactions: No Hx Malignant Hyperthermia: No Meds Allergies/Adverse Reactions: Allergies Allergy/AdvReac Type Severity Reaction Status Date / Time azithromycin [From Zithromax] Allergy RASH Verified 08/07/18 08:07 - Medications Medications: Current Medications Albuterol/Ipratropium (Duoneb 3 Mg/0.5 Mg (3 Ml) Ud) 3 ml INH RQ6 PRN PRN Reason: Shortness of Breath Chlordiazepoxide (Librium) 5 mg PO Q8 PRN PRN Reason: Agitation Last Admin: 09/25/18 17:46 Dose: 5 mg Diltiazem HCl (Cardizem) 30 mg PO Q12H [facility] Last Admin: 09/27/18 11:03 Dose: 30 mg Doxycycline Hyclate (Doryx) 100 mg PO Q12H [facility]; Protocol Last Admin: 09/27/18 21:24 Dose: 100 mg Enoxaparin Sodium (Lovenox) 40 mg SC DAILY [facility] Last Admin: 09/27/18 09:39 Dose: 40 mg Fluticasone/Vilanterol (Breo Ellipta 200-25 Mcg Inh) 1 puff INH RQD [facility] Last Admin: 09/27/18 07:54 Dose: 1 puff Piperacillin Sod/Tazobactam Sod (Zosyn 3.375 Gm Iv Premix) 3.375 gm in 50 mls @ 100 mls/hr IVPB Q6H [facility]; Protocol Last Admin: 09/27/18 21:25 Dose: 100 mls/hr Methylprednisolone (Solu-Medrol) 40 mg IVP Q12 [facility] Last Admin: 09/27/18 21:25 Dose: 40 mg Montelukast Sodium (Singulair) 10 mg PO HS [facility] Last Admin: 09/27/18 21:25 Dose: 10 mg Pantoprazole Sodium (Protonix Ec Tab) 40 mg PO DAILY [facility] Results - Vital Signs Recent Vital Signs: Last Vital Signs Temp 98.2 F 09/27/18 16:00 Pulse 93 H 09/27/18 18:23 Resp 20 09/27/18 18:23 BP 143/95 H 09/27/18 18:23 Pulse Ox 95 09/27/18 18:23 - Labs Result Diagrams: 09/27/18 05:53 09/27/18 05:51 Labs: Laboratory Results - last 24 hr 09/25/18 09/25/18 09/27/18 01:47 08:47 05:51 WBC RBC Hgb Hct MCV MCH MCHC RDW Plt Count MPV Neut % (Auto) Lymph % (Auto) [place] % (Auto) Eos % (Auto) Baso % (Auto) Neut # (Auto) Lymph # (Auto) [place] # (Auto) Eos # (Auto) Baso # (Auto) Neutrophils % (Manual) Lymphocytes % (Manual) Monocytes % (Manual) Platelet Estimate Sodium Potassium Chloride Carbon Dioxide Anion Gap BUN Creatinine Est GFR ( Amer) Est GFR (Non-Af Amer) Random Glucose Lactic Acid 1.7 Calcium Total Bilirubin AST ALT Alkaline Phosphatase Total Protein Albumin Globulin Albumin/Globulin Ratio Ur Opiates (GC/MS) Negative Oxycodone Screen negative Ur Oxycodone Comment See note Ur Methadone, Qual Negative Urine Propoxyphene Negative Methaqualone Negative Ur Barbiturates, Qual Negative Ur Phencyclidine (PCP) Negative Ur Amphetamines Screen Negative U Benzodiazepines Qual Negative Urine Cocaine Negative U Marijuana (THC) Screen Negative Drugs of Abuse Note See note 09/27/18 09/27/18 05:51 05:53 WBC 20.9 H RBC 3.82 L Hgb 13.2 Hct 39.7 MCV 103.8 H MCH 34.6 H MCHC 33.3 RDW 13.0 Plt Count 332 MPV 7.9 Neut % (Auto) 91.6 H Lymph % (Auto) 4.7 L [place] % (Auto) 3.4 Eos % (Auto) 0.0 Baso % (Auto) 0.3 Neut # (Auto) 19.2 H Lymph # (Auto) 1.0 [place] # (Auto) 0.7 Eos # (Auto) 0.0 Baso # (Auto) 0.1 Neutrophils % (Manual) 95 H Lymphocytes % (Manual) 4 L Monocytes % (Manual) 1 Platelet Estimate Normal Sodium 136 Potassium 4.4 Chloride 104 Carbon Dioxide 26 Anion Gap 10 BUN 22 H Creatinine 0.7 L Est GFR ( Amer) > 60 Est GFR (Non-Af Amer) > 60 Random Glucose 139 H Lactic Acid Calcium 9.1 Total Bilirubin 1.2 AST 114 H D ALT 142 H D Alkaline Phosphatase 77 Total Protein 6.3 Albumin 3.6 Globulin 2.8 Albumin/Globulin Ratio 1.3 Ur Opiates (GC/MS) Oxycodone Screen Ur Oxycodone Comment Ur Methadone, Qual Urine Propoxyphene Methaqualone Ur Barbiturates, Qual Ur Phencyclidine (PCP) Ur Amphetamines Screen U Benzodiazepines Qual Urine Cocaine U Marijuana (THC) Screen Drugs of Abuse Note
[2018-09-28] MEDS: Piperacill/Tazo 3.375gm in Dex 3.375 GM/50 ML BAG IVPB SCH ×2 (03:36→09:43)
[2018-09-28 07:00] LABS: BASO # 0.1 K/uL (0.0-0.2); BASO % 0.3 % (0.0-2.0); LYMPH # 1.2 K/uL (1.0-4.3); LYMPH % 6.6 % (20.0-40.0); MEAN CELL VOLUME 103.4 fL (80.0-94.0); MEAN CORPUSCULAR HEMOGLOBIN 34.4 pg (27.0-31.0); MEAN CORPUSCULAR HGB CONC 33.3 g/dL (33.0-37.0); MEAN PLATELET VOLUME 8.1 fL (7.2-11.7); MONO # 0.7 K/uL (0.0-0.8); MONO % 3.9 % (0.0-10.0); NEUT % 89.2 % (50.0-75.0); PLATELET COUNT 326 K/uL (130-400); RBC 4.07 Mil/uL (4.40-5.90); RED CELL DISTRIBUTION WIDTH 12.8 % (11.5-14.5)
--- NOTE | 2018-09-28 07:18 | CON ---
DATE: 09/27/2018 REQUESTED BY: Valencia Norman MD REASON FOR CONSULTATION: Consult was requested for increasing WBC count. HISTORY OF PRESENT ILLNESS: This patient is a 57-year-old male. He has asthma symptoms and he was having acute exacerbation. He also says he is on prednisone 5 mg recently and was having difficulty breathing, so he started to use his inhaler very fast and he was watching a basketball game and suddenly he started to have onset of shortness of breath and was wheezing. He used it multiple times and then he continued to have shortness of breath; hence, he was brought to the hospital. He denies taking any drugs, but he says the albuterol made him have some pain and shortness of breath and he was admitted. He was brought here. He was found to be having palpitations and he had no fever, no chills. He was started on Cardizem drip. He was admitted and he feels much better today. He says they are controlling the medications so that he does not get palpitations. He was also seen by the pulmonary attending. He has just received a respiratory treatment. PAST MEDICAL HISTORY: Significant for asthma exacerbations. ALLERGIES: HE IS ALLERGIC TO ZITHROMAX. HE GETS RASH FROM IT. SOCIAL HISTORY: He is a former smoker. MEDICATIONS: He was on DuoNeb, on Librium for agitation, Cardizem, doxycycline which I started yesterday, and he is on Zosyn and Lovenox. He is on BREO ELLIPTA 1 puff daily for his lungs and he is on Zosyn; methylprednisolone, he is on 40 every 12 hours. He is on Singulair and pantoprazole. REVIEW OF SYSTEMS: Cardiac roth, history of hypertension. He has COPD. He denies any neurological problems. No kidney issues. No endocrine problems. No blood disorders. No skin problems. No history of fall. No problems. No substance abuse. Denies any surgeries. No history of anesthesia in the past. He does give a history of having Zithromax-related rashes. PHYSICAL EXAMINATION: VITAL SIGNS: On examination, he has temp of 98.2, pulse 100, blood pressure 143/82, respirations 16, saturation 94%. HEENT: Head is atraumatic, normocephalic. Pupils are reacting to light. No thrush present. GENERAL: He was able to give history, alert and oriented x3. NECK: Supple. JVP is flat. LUNGS: Clear. At the time I saw, he did not have any rhonchi or wheezing. HEART: S1, S2. Regular. ABDOMEN: Soft, nontender. No guarding, no rigidity present. EXTREMITIES: No edema, clubbing or cyanosis. LABORATORY DATA: Labs were noted. Labs show white count today was 20.9, hemoglobin is 13.2, hematocrit 39.7 and yesterday was 27.4. He came in with 10.1 white count and now it has decreased from 27 to 20 today where platelets are 337. Neutrophils in the differential was 91.6. Lactate level was 2.9 yesterday, so I ordered a repeat. Today, it was 1.7. His LFTs, AST is 114, ALT is 142 and troponin was less than 0.012 and he has 3+ glucose in the urine and his toxicology, some things are pending. They did a whole toxicology screen which is pending on him at this time and partially is negative. The influenza swab was negative. They did an angiography CAT scan because chest x-ray was nodular density at right lung apex, biapical pleural thickening, tortuous aorta, mild cardiomegaly and he had a lung V/Q scan done which showed there are nonsegmental small foci, low probability ventilation-perfusion scan of pulmonary embolism. ASSESSMENT: So, this patient is admitted with acute exacerbation of chronic obstructive pulmonary disease and high white count which could be related to the steroids as he says he was on 5 mg, but when he came into the hospital, his white count was 10, increased to 27 and now is 20. PLAN: We will continue with the present antibiotics at this time and we will follow with the other consultants and he is not able to give any sputum, but blood culture x2 are negative at this time. Urine culture is negative and there is known methicillin-resistant Staphylococcus aureus detected on the nose. Avril Persaud MD
[2018-09-28] MEDS: Fluticasone-Vilanterol 200/25mcg Diskus INH SCH (07:32)
[2018-09-28 07:40] LABS: ALB/GLOB RATIO 1.2 (1.0-2.1); ALBUMIN 3.5 g/dL (3.5-5.0); ALT/SGPT 366 U/L (21-72); AST/SGOT 350 U/L (17-59); BLOOD UREA NITROGEN 23 mg/dL (9-20); CALCIUM 9.1 mg/dl (8.6-10.4); GFR NON-AFRICAN AMERICAN > 60
[2018-09-28 09:03] LABS: LYMPHOCYTE 8 % (20-40); MONOCYTE 6 % (0-10); NEUTROPHIL 86 % (50-75); PLATELET ESTIMATE NORMAL (NORMAL); TOTAL CELLS COUNTED 100
[2018-09-28] MEDS: MethylPREDNISolone 40 mg Vial IVP SCH (09:41)
[2018-09-28] MEDS: Enoxaparin 40 mg Syringe SC SCH (09:41)
[2018-09-28] MEDS ORDERED: Pantoprazole 40 mg EC Tab PO SCH (10:00)
[2018-09-28 12:22] VITALS: BP 142/95; PULSE 84; RESP 20; TEMP 97.8; O2SAT 95
[2018-09-28] MEDS ORDERED: Albuterol-Ipratrop 3 mg / 0.5 (3 ml) UD INH SCH (12:30)
--- NOTE | 2018-09-28 15:13 | CP.PCM.PN ---
Subjective - Date & Time of Evaluation Date of Evaluation: 09/28/18 Time of Evaluation: 20:00 - Subjective Subjective: Patient was seen and examined at bedside this morning. Patient is resting comfortably and in no acute distress. Patient states he is breathing better and cough is minimal. He denies any fevers, chills, chest pain, n/v, hemotpysis. exam: General: no acute distress, AAOx3 Heart: RRR, no wheezing rales rhonci Lungs: CTA b/L, no wheezing, rales or rhonchi A&P 1. Acute Asthma Exacerbation - Continue Nebulizer treatment - discontinue IV ABX and change to po steroids - Peak flow every shift - Transfer to floor -elevated liver enzymes sec to antibiotics -F/U LFTs Objective - Vital Signs/Intake and Output Vital Signs (last 24 hours): Temp Pulse Resp BP Pulse Ox 97.8 F 84 20 142/95 H 95 09/28/18 12:00 09/28/18 12:00 09/28/18 12:00 09/28/18 12:00 09/28/18 08:00 Intake and Output: 09/28/18 09/28/18 06:59 18:59 Intake Total 700 Output Total 1800 Balance -1100 - Medications Medications: Current Medications Albuterol/Ipratropium (Duoneb 3 Mg/0.5 Mg (3 Ml) Ud) 3 ml INH RQ6 [facility] Diltiazem HCl (Cardizem) 30 mg PO Q12H [facility] Last Admin: 09/28/18 11:11 Dose: 30 mg Enoxaparin Sodium (Lovenox) 40 mg SC DAILY [facility] Last Admin: 09/28/18 09:41 Dose: 40 mg Fluticasone/Vilanterol (Breo Ellipta 200-25 Mcg Inh) 1 puff INH RQD [facility] Last Admin: 09/28/18 07:32 Dose: 1 puff Methylprednisolone (Solu-Medrol) 40 mg IVP Q12 [facility] Last Admin: 09/28/18 09:41 Dose: 40 mg Montelukast Sodium (Singulair) 10 mg PO HS [facility] Last Admin: 09/27/18 21:25 Dose: 10 mg Pantoprazole Sodium (Protonix Ec Tab) 40 mg PO DAILY [facility] Last Admin: 09/28/18 09:42 Dose: 40 mg - Labs Labs: 09/28/18 06:57 09/28/18 06:57 Assessment and Plan (1) Asthma exacerbation Status: Acute (2) Tachycardia Status: Acute
[2018-09-28] MEDS ORDERED: Piperacillin/Tazobact 3.375 GM in Sodium Chloride 100 ML IVPB SCH (16:00)
--- NOTE | 2018-09-28 17:42 | CP.PCM.PN ---
Subjective - Date & Time of Evaluation Date of Evaluation: 09/28/18 Time of Evaluation: 11:00 - Subjective Subjective: alert, orientedx3, denies sob or chest pains, no acute wheezing. Objective - Vital Signs/Intake and Output Vital Signs (last 24 hours): Temp Pulse Resp BP Pulse Ox 97.8 F 84 20 142/95 H 95 09/28/18 12:00 09/28/18 12:00 09/28/18 12:00 09/28/18 12:00 09/28/18 08:00 Intake and Output: 09/28/18 09/28/18 06:59 18:59 Intake Total 700 Output Total 1800 Balance -1100 - Medications Medications: Current Medications Albuterol/Ipratropium (Duoneb 3 Mg/0.5 Mg (3 Ml) Ud) 3 ml INH RQ6 [facility] Diltiazem HCl (Cardizem) 30 mg PO Q12H [facility] Last Admin: 09/28/18 11:11 Dose: 30 mg Enoxaparin Sodium (Lovenox) 40 mg SC DAILY [facility] Last Admin: 09/28/18 09:41 Dose: 40 mg Fluticasone/Vilanterol (Breo Ellipta 200-25 Mcg Inh) 1 puff INH RQD [facility] Last Admin: 09/28/18 07:32 Dose: 1 puff Methylprednisolone (Solu-Medrol) 40 mg IVP Q12 [facility] Last Admin: 09/28/18 09:41 Dose: 40 mg Montelukast Sodium (Singulair) 10 mg PO HS [facility] Last Admin: 09/27/18 21:25 Dose: 10 mg Pantoprazole Sodium (Protonix Ec Tab) 40 mg PO DAILY [facility] Last Admin: 09/28/18 09:42 Dose: 40 mg - Labs Labs: 09/28/18 06:57 09/28/18 06:57 Assessment and Plan - Assessment and Plan (Free Text) Assessment: 57 year old male admitted with asthma exacerbation, seen and examined. ALERT AND ORIENTEDX3, no wheezing or cough now. Cleared by DR Marshall, discussed with DR Tami Norman, plan to discontinue the antibiotics, discharge home today. Advised to follow up in the office in one week and follow up on the elevated liver enzymes. Will discuss with DR Persaud.
--- NOTE | 2018-09-28 18:19 | CP.PCM.PN ---
Subjective - Date & Time of Evaluation Date of Evaluation: 09/28/18 Time of Evaluation: 11:45 - Subjective Subjective: clinically same Objective - Vital Signs/Intake and Output Vital Signs (last 24 hours): Temp Pulse Resp BP Pulse Ox 97.8 F 84 20 142/95 H 95 09/28/18 12:00 09/28/18 12:00 09/28/18 12:00 09/28/18 12:00 09/28/18 08:00 Intake and Output: 09/28/18 09/28/18 06:59 18:59 Intake Total 700 Output Total 1800 Balance -1100 - Medications Medications: Current Medications Albuterol/Ipratropium (Duoneb 3 Mg/0.5 Mg (3 Ml) Ud) 3 ml INH RQ6 [facility] Diltiazem HCl (Cardizem) 30 mg PO Q12H [facility] Last Admin: 09/28/18 11:11 Dose: 30 mg Enoxaparin Sodium (Lovenox) 40 mg SC DAILY [facility] Last Admin: 09/28/18 09:41 Dose: 40 mg Fluticasone/Vilanterol (Breo Ellipta 200-25 Mcg Inh) 1 puff INH RQD [facility] Last Admin: 09/28/18 07:32 Dose: 1 puff Methylprednisolone (Solu-Medrol) 40 mg IVP Q12 [facility] Last Admin: 09/28/18 09:41 Dose: 40 mg Montelukast Sodium (Singulair) 10 mg PO HS [facility] Last Admin: 09/27/18 21:25 Dose: 10 mg Pantoprazole Sodium (Protonix Ec Tab) 40 mg PO DAILY [facility] Last Admin: 09/28/18 09:42 Dose: 40 mg - Labs Labs: 09/28/18 06:57 09/28/18 06:57 - Constitutional Appears: Well - Head Exam Head Exam: ATRAUMATIC, NORMAL INSPECTION, NORMOCEPHALIC - Eye Exam Eye Exam: EOMI, Normal appearance, PERRL Pupil Exam: NORMAL ACCOMODATION, PERRL - ENT Exam ENT Exam: Mucous Membranes Moist, Normal Exam - Neck Exam Neck Exam: Full ROM, Normal Inspection. absent: Lymphadenopathy - Respiratory Exam Respiratory Exam: Decreased Breath Sounds - Cardiovascular Exam Cardiovascular Exam: REGULAR RHYTHM, +S1, +S2 - GI/Abdominal Exam GI & Abdominal Exam: Soft, Diminished Bowel Sounds - Rectal Exam Rectal Exam: Deferred
--- NOTE | 2018-09-28 22:10 | CP.PCM.PN ---
Subjective - Date & Time of Evaluation Date of Evaluation: 09/28/18 Time of Evaluation: 14:30 - Subjective Subjective: dictated Objective - Vital Signs/Intake and Output Vital Signs (last 24 hours): Temp Pulse Resp BP Pulse Ox 97.8 F 84 20 142/95 H 95 09/28/18 12:00 09/28/18 12:00 09/28/18 12:00 09/28/18 12:00 09/28/18 08:00 - Labs Labs: 09/28/18 06:57 09/28/18 06:57
--- NOTE | 2018-09-28 22:46 | CARD ---
APPROVED REPORT Date of service: 09/25/2018 EKG Measurement Heart [id number] <Conclusion> Sinus tachycardia Otherwise normal ECG
--- NOTE | 2018-09-29 01:26 | PN ---
DATE: 09/28/2018 SUBJECTIVE: The patient was seen this afternoon at 02:30, and patient denied taking any drugs and the fence installer helper had discontinued the IV antibiotics that I had ordered. He denied any trouble breathing. He had no other complaints at that time and the nurse told me that his LFTs were high; hence, they had discontinued the antibiotics. So, at this time, when the patient was seen, he was awake, alert. He denied any complaints. He did not have any chest pain or shortness of breath. He was breathing easier. He said he slept good. PHYSICAL EXAMINATION: VITAL SIGNS: Showed that his temperature was 97.8, pulse 84, blood pressure was 142/95, respirations were 20. HEAD: Atraumatic, normocephalic. NECK: Supple. LUNGS: Clear. HEART: S1, S2. Regular. ABDOMEN: Soft, nontender. No guarding, no rigidity present. EXTREMITIES: Had no edema. ASSESSMENT AND PLAN: He said he will be going tomorrow upstairs and I wanted to just monitor his liver enzymes again as they were elevated but he was also on Librium which may have been the cause and we will discontinue Zosyn. His white count may be related to the steroids. He has been on steroids at home also. Avril Persaud MD
== END 2018-09-28 16:20 | disposition home or self-care (01) | DRG 191 ==
LOC: C.ER 23:28 → C.9I 09-25 03:12
PROVIDERS: ADMIT Internal Medicine Nephrology; ATTEND Internal Medicine Nephrology
DX: J44.1 Chronic obstructive pulmonary disease with (acute) exacerbation (principal); J45.901 Unspecified asthma with (acute) exacerbation; I10 Essential (primary) hypertension; Z87.891 Personal history of nicotine dependence